=== PATIENT | male | born 1965 | race Caucasian/White ===

== ENCOUNTER 2024-03-11 00:04 | Emergency (ER) | payer SELFPAY ==
[2024-03-11 00:10] VITALS: BP 180/90; PULSE 132; TEMP 36.6; O2SAT 92; BMI 23.1
--- NOTE | 2024-03-11 00:47 | XR_ITS ---
The [address] [address] Patient Name: BERENICE BLANDON MRN: [id number] date: 1965 Sex: M Assigned Patient Location: ER Current Patient Location: ER Accession/Order Number: [id number] Exam Date: 03/11/2024 01:39 Report Date: 03/11/2024 04:17 At the request of: LORE MARKER Procedure: XR acute abdomen series EXAMINATION: XR acute abdomen series HISTORY: N/V/D COMPARISON: XR chest 03/15/2020 FINDINGS: LUNGS: Thin curvilinear stranding opacity within upper left lung extending to a triangular-shaped opacity adjacent the upper lateral left pleural. MEDIASTINUM: No abnormal widening. BOWEL GAS PATTERN: Air-filled stomach and a few loops of bowel within left upper quadrant. No fluid levels or free air. FREE AIR: None. CALCIFICATIONS: None significant. BONES: Marked irregularity of the right eighth rib. OTHER: Negative. XR/XR acute abdomen series IMPRESSION: 1. No convincing acute cardiopulmonary process. 2. Lateral left upper lobe opacity is suspected to represent scarring, however, this has increased or is better seen compared to prior study. Consider nonemergent follow-up CT chest. 3. Stable marked irregularity of posterior right eighth rib; nonspecific but likely sequela of prior trauma and heterotopic bone formation. 4. Air-filled stomach and a few loops of bowel within left upper quadrant; no convincing obstruction or ileus. Electronically authenticated by: LÓPEZ ALEJANDRE Date: 03/11/2024 04:17
[2024-03-11 00:52] LABS: Basophils Percent Auto 0.2 % (0.2-2.0); Hematocrit 45.7 % (42.0-54.0); Hemoglobin 15.3 g/dL (14.0-18.0); Immature Granulocytes Abs Auto 0.06 10^3/uL (0.00-0.03); Immature Granulocytes Pct Auto 0.4 % (0.0-0.5); Lymphocytes Absolute Auto 2.1 10^3/uL (1.2-3.8); Lymphocytes Percent Auto 12.4 % (20.5-60.0); Mean Corpuscular HGB Conc 33.5 g/dL (29.9-35.2); Mean Corpuscular Hemoglobin 30.4 pg (25.9-34.0); Mean Corpuscular Volume 90.9 fL (80.0-94.0); Monocytes Absolute Auto 1.1 10^3/uL (0.3-0.8); Monocytes Percent Auto 6.7 % (1.7-12.0); Neutrophils Absolute Auto 13.3 10^3/uL (1.4-6.5); Neutrophils Percent Auto 80.3 % (43.0-75.0); Platelet Count 265 10^3/uL (150-450); Red Blood Count 5.03 10^6/uL (4.70-6.10); Red Cell Distribution Width 13.5 % (11.0-15.0); White Blood Count 16.5 10^3/uL (4.0-11.0)
[2024-03-11 01:07] LABS: Alanine Aminotransferase 120 U/L (16-63); Albumin Globulin Ratio 0.8; Albumin Level 3.7 g/dL (3.4-5.0); Alkaline Phosphatase 135 U/L (46-116); Anion Gap 15.1; Aspartate Amino Transferase 132 U/L (15-37); BUN Creatinine Ratio 18.6; Bilirubin Total 0.8 mg/dL (0.2-1.0); Calcium 10.1 mg/dL (8.5-10.1); Carbon Dioxide 30.5 mmol/L (21.0-32.0); Chloride 104 mmol/L (98-107); Estimated GFR (African America >60 (>=60 mL/min/1.73m^2); Estimated GFR (Non-African Ame >60 (>=60 mL/min/1.73m^2); Globulin 4.9 g/dL; Glucose 163 mg/dL (74-106); Potassium 3.6 mmol/L (3.5-5.1); Sodium 146 mmol/L (136-145); Total Protein 8.6 g/dL (6.4-8.2)
[2024-03-11] MEDS: FAMOTIDINE/PF 20 MG/2 ML VIAL IV (01:13)
[2024-03-11] MEDS: 0.9 % SODIUM CHLORIDE 1,000 ML 1000 ML IV ×2 (01:13→03:03)
[2024-03-11] MEDS: ONDANSETRON PF 4 MG/2 ML VIAL IV ×2 (01:13→03:40)
--- NOTE | 2024-03-11 01:38 | ED_ITS ---
HPI - Nausea/Vomiting/Diarrhea General Chief complaint: Nausea/Vomiting/Diarrhea Stated complaint: GENERAL WEAKNESS Time Seen by Provider: 03/11/24 00:40 Source: patient Mode of arrival: walk-in Limitations: no limitations History of Present Illness HPI Narrative: This 59-year-old male presents for evaluation of 1 day of nausea vomiting and diarrhea. He states his symptoms started earlier today. He has vomited at least 10 times and had the same number of episodes of diarrhea. He denies that he has been eating [employer] recently. He does not know what is causing his symptoms. He has not traveled outside of the country. He denies any fevers or chills. He denies any chest pain or shortness of breath. He denies a history of excessive alcohol use. He states he was trying to drink some water earlier t o stay hydrated but then he vomited. He denies any chest pain or pau abdominal pain. He has not had a fever. He denies any dizziness or syncope. Related Data Home Medications ?Medication ?Instructions ?Recorded ?Confirmed No Known Home Medications 03/11/24 03/11/24 Allergies Allergy/AdvReac Type Severity Reaction Status Date / Time No Known Drug Allergies Allergy Verified 03/11/24 00:15 Review of Systems ROS Status of ROS 10 or more systems reviewed and unremark able except as noted in history and below PFSH PFSH Social History Little interest or pleasure in doing things: not at all Feeling down, depressed, or hopeless: not at all Exam Narrative Exam Narrative: Vital signs and Nursing Notes reviewed: Patient is afebrile, he is tachycardic with a pulse of 132, blood pressure is elevated 180/90, he is mildly hypoxic with pulse ox of 92% on room air General: Awake, alert, oriented, no acute distress, lying comfortably on the stretcher, no respiratory distress, no active vomiting HEENT: Normocephalic atraumatic, mucous membranes are dry, no scleral icterus, vision is grossly intact Chest: Lungs are clear to auscultation with good air entry, there is no wheezing rhonchi or rales appreciated no accessory muscle use, patient is speaking in complete sentences-no chest wall tenderness to palpation CVS: Regular rate and rhythm S1-S2, tachycardic at 120 on exam with no murmurs rubs or gallops appreciated ABD: Soft, nondistended, nontender, no rebound guarding or rigidity, hyperactive bowel sounds, no pulsatile masses appreciated Extremities: Moving all extremities, no lower extremity tenderness or swelling noted, negative Homans' sign, pulses are brisk and equal bilaterally Skin: Normal in appearance without rash,pallor, petechiae or purpura Neuro: No focal deficits Constitutional Vital Signs, click to edit/add: Last Vital Signs Temp 97.8 F 03/11/24 00:10 Pulse 99 H 03/11/24 05:28 Resp 18 03/11/24 05:28 BP 175/99 H 03/11/24 05:28 Pulse Ox 96 03/11/24 05:28 O2 Del Method Room Air 03/11/24 05:28 Course Vital Signs Vital signs: Vital Signs Temperature 97.8 F 03/11/24 00:10 Pulse Rate 132 H 03/11/24 00:10 Respiratory Rate 18 03/11/24 00:10 Blood Pressure 180/90 H 03/11/24 00:10 Pulse Oximetry 92 L 03/11/24 00:10 Oxygen Delivery Method Room Air 03/11/24 00:10 Temperature 97.8 F 03/11/24 00:10 Pulse Rate 99 H 03/11/24 05:28 Respiratory Rate 18 03/11/24 05:28 Blood Pressure 175/99 H 03/11/24 05:28 Pulse Oximetry 96 03/11/24 05:28 Oxygen Delivery Method Room Air 03/11/24 05:28 MDM - Nausea/Vomiting/Diarrhea MDM Narrative Medical decision making narrative: This 59-year-old male presents for evaluation of 1 day of nausea vomiting and diarrhea. He states he cannot keep anything down. He was noted to be hypertensive and tachycardic upon arrival. He denied any chest pain or shortness of breath. He has not really recently eaten any fast food. He has no sick contacts. He denied any abdominal pain and his abdominal and was benign.. An IV was placed and he was medicated with IV fluids, Zofran, Pepcid. On reevaluation he is tolerating ice chips but states his stomach is still gurgling and was given additional IV fluids and Zofran. Routine labs are reviewed. He has an elevated white count at 16.5 which is likely acute phase reactant due to the vomiting. BUN is mildly elevated at 21, creatinine is normal. He has some mild elevation in his liver function test. I do not have any prior labs for comparison purposes. Total bilirubin is normal. X-ray of the chest and abdomen does not show any acute abdominal findings. He will be referred to his family physician for the abnormal findings on his x-ray for outpatient CT scanning. He will be discharged home with prescription for Zofran and Pepcid. He has not had any additional episodes of vomiting or diarrhea while in the emergency department. His elevated blood pressure upon arrival has come down and stabilized into the 140s over 70s. Medical Records Medical records narrative: [place] [address] XRay Report Signed Patient: BERENICE BLANDON MR#: [id number] : 1965 Acct:[id number] Age/Sex: 59 / M ADM Date: 03/11/24 Loc: ER Attending Dr: Ordering Physician: Evonne Novak Date of Service: 03/11/24 Procedure(s): XR acute abdomen series Accession Number(s): [id number] cc: Evonne Novak; Physician,Non-Staff M.D.~ The [place] [address] Patient Name: BERENICE BLANDON MRN: [id number] date: 1965 Sex: M Assigned Patient Location: ER Current Patient Location: ER Accession/Order Number: [id number] Exam Date: 03/11/2024 01:39 Report Date: 03/11/2024 04:17 At the request of: EVONNE NOVAK Procedure: XR acute abdomen series EXAMINATION: XR acute abdomen series HISTORY: N/V/D COMPARISON: XR chest 03/15/2020 FINDINGS: LUNGS: Thin curvilinear stranding opacity within upper left lung extending to a triangular-shaped opacity adjacent the upper lateral left pleural. MEDIASTINUM: No abnormal widening. BOWEL GAS PATTERN: Air-filled stomach and a few loops of bowel within left upper quadrant. No fluid levels or free air. FREE AIR: None. CALCIFICATIONS: None significant. BONES: Marked irregularity of the right eighth rib. OTHER: Negative. XR/XR acute abdomen series IMPRESSION: 1. No convincing acute cardiopulmonary process. 2. Lateral left upper lobe opacity is suspected to represent scarring, however, this has increased or is better seen compared to prior study. Consider nonemergent follow-up CT chest. 3. Stable marked irregularity of posterior right eighth rib; nonspecific but likely sequela of prior trauma and heterotopic bone formation. 4. Air-filled stomach and a few loops of bowel within left upper quadrant; no convincing obstruction or ileus. Electronically authenticated by: LÓPEZ ALEJANDRE Date: 03/11/2024 04:17 Lab Data Labs: Lab Results 03/11/24 Range/Units 00:28 WBC 16.5 H (4.0-11.0) 10^3/uL RBC 5.03 (4.70-6.10) 10^6/uL Hgb 15.3 (14.0-18.0) g/dL Hct 45.7 (42.0-54.0) % MCV 90.9 (80.0-94.0) fL MCH 30.4 (25.9-34.0) pg MCHC 33.5 (29.9-35.2) g/dL RDW 13.5 (11.0-15.0) % Plt Count 265 (150-450) 10^3/uL MPV 12.0 (9.5-13.5) fL Neut % (Auto) 80.3 H (43.0-75.0) % Lymph % (Auto) 12.4 L (20.5-60.0) % Kimball % (Auto) 6.7 (1.7-12.0) % Eos % (Auto) 0.0 L (0.9-7.0) % Baso % (Auto) 0.2 (0.2-2.0) % Neut # (Auto) 13.3 H (1.4-6.5) 10^3/uL Lymph # (Auto) 2.1 (1.2-3.8) 10^3/uL Kimball # (Auto) 1.1 H (0.3-0.8) 10^3/uL Eos # (Auto) 0.0 (0.0-0.7) 10^3/uL Baso # (Auto) 0.0 (0.0-0.1) 10^3/uL Abs Immat Gran (auto) 0.06 H (0.00-0.03) 10^3/uL Imm/Tot Granulo (auto) 0.4 (0.0-0.5) % Sodium 146 H (136-145) mmol/L Potassium 3.6 (3.5-5.1) mmol/L Chloride 104 (98-107) mmol/L Carbon Dioxide 30.5 (21.0-32.0) mmol/L Anion Gap 15.1 BUN 21.0 H (7.0-18.0) mg/dL Creatinine 1.13 (0.70-1.30) mg/dL Est GFR ( Amer) >60 (>=60 mL/min/1.73m^2) Est GFR (Non-Af Amer) >60 (>=60 mL/min/1.73m^2) BUN/Creatinine Ratio 18.6 Glucose 163 H (74-106) mg/dL Calcium 10.1 (8.5-10.1) mg/dL Total Bilirubin 0.8 (0.2-1.0) mg/dL AST 132 H (15-37) U/L ALT 120 H (16-63) U/L Alkaline Phosphatase 135 H (46-116) U/L Total Protein 8.6 H (6.4-8.2) g/dL Albumin 3.7 (3.4-5.0) g/dL Globulin 4.9 g/dL Albumin/Globulin Ratio 0.8 Discharge Plan Discharge Chief Complaint: Nausea/Vomiting/Diarrhea Clinical Impression: Gastroenteritis, Elevated liver function tests Patient Disposition: Home, Self-Care Time of Disposition Decision: 05:00 Condition: Good Prescriptions / Home Meds: No Action No Known Home Medications Print Language: Citizen [place] Instructions: Acute Nausea and Vomiting (ED), ABG (Arterial Blood Gas) Test (ED) Referrals: Physician,Non-Staff, [Primary Care Provider] - 1 week Discharge Date/Time: 03/11/24 05:45
[2024-03-11 02:30] VITALS: BP 140/78; PULSE 118; O2SAT 95
[2024-03-11 05:28] VITALS: BP 175/99; PULSE 99; O2SAT 96
== END 2024-03-11 05:45 | disposition home or self-care (01) ==
PROVIDERS: Emergency Provider Emergency Medicine
DX: K52.9 Noninfective gastroenteritis and colitis, unspecified (principal); R79.89 Other specified abnormal findings of blood chemistry
CPT/HCPCS: 36415; 74022; 80053; 85025; 96361; 96374; 96375; 96376; 99285; J2405

== ENCOUNTER 2024-07-19 19:36 | Observation (INO) | payer OTHER, SELFPAY ==
[2024-07-19] VITALS (32 sets, daily range): BP systolic 124–152; BP diastolic 79–102; PULSE 101–171; TEMP 36.7; O2SAT 83–98; BMI 20.3
--- NOTE | 2024-07-19 19:42 | ECG_ITS ---
The [facility] Test Date: 2024-07-19 Pat Name: BERENICE BLANDON Department: Room: - Gender: Male [employer] Executive: : 1965 Requested By: 1031 Order Number: [id number] Reading MD: JULEE EDMOND M.D. Measurements Intervals [place] Rate: 126 P: 105 CT: 132 QRS: 84 QRSD: 90 T: 64 QT: 334 QTc: 408 Interpretive Statements [address] segment abnormalities 9150 abnormal ECG Compared to ECG 03/15/2020 19:14:45 ST (T wave) deviation now present Incomplete right bundle-branch block no longer present Electronically Signed On 07-20-2024 19:56:36 EDT by JULEE EDMOND M.D.
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
--- OUTSIDE RECORDS SUMMARY | 2024-07-19 19:47 | XMS_ITS | CCD ---
Author Organization [facility] Care Team Providers Care Bender Hand Name Role Phone MADISONTIMAADRIANA Unavailable Unavailable CHRISTIE, BRENDAN Unavailable Unavailable CHRISTIE, BRENDAN Unavailable Unavailable CHRISTIE, BRENDAN Unavailable Unavailable STACIE LERMA Unavailable Unavailable DABOUL, ISAM Unavailable Unavailable MARKER, LORE Attending Unavailable MARKER, LORE Consulting Unavailable MARKER, LORE Admitting Unavailable MISC, DOCTOR Primary Care Unavailable Policaro, Suly Consulting Unavailable OPAL Almazan Primary Care Provider OPAL Almazan Referring Provider MD Julio Martinez Attending Provider TIFFANIE MILES Attending Unavaila ble Julio Martinez Attending Unavailabl e Julio Martinez Admitting UnavailBritney Castro Referring Unavailable Britney Almazan Primary Care Unavailable Allergies Allergy Classification Reported Allergen(s) Allergy Type Date of Onset Reaction(s) Facility (1 source) ALLERGIES NOT ON FILE; Translations: [ALLERGIES NOT ON FILE] Propensity to adverse reactions (disorder) [facility] Repository (1 source) Codeine Drug Allergy [facility] Repository Medications Current Medications Medication Drug Class(es) Dates Sig (Normalized) Sig (Original) pregabalin 300 mg oral capsule (6 sources) Start: 08-21-2023 End: 11-05-2023 take 300 mg by mouth twice daily Pregabalin Active 300 MG PO Twice daily 60 November 05, 2023 2:05pm Completed/Discontinued Medications Medication Drug Class(es) Dates Sig (Normalized) Sig (Original) amoxicillin 875 mg / clavulanate 125 mg oral tablet (1 source) Penicillin-class Antibacterial Start: 11-17-2023 End: 12-01-2023 take 1 tablet by mouth twice daily Amoxicillin-Pot Clavulanate Discontinued 1 TAB PO Twice daily 20 November 17, 2023 12:00am December 01, 2023 1:19pm Problems Problem Classification Problem Date Documented Da te Episodic/Chronic Anxiety disorders (1 source) Anxiety; Translations: [Anxiety disorder, unspecified] 12-01-2023 Chronic Cancer of esophagus (3 sources) Malignant neoplasm of lower third of esophagus; Translations: [Malignant neoplasm of lower third of esophagus] Onset: 05-07-2022 Chronic Cancer of esophagus (13 sources) Personal history of malignant neoplasm of esophagus; Translations: [History of malignant neoplasm of esophagus] Onset: 03-17-2020 08-21-2023 Episodic Congestive heart failure; nonhypertensive (1 source) Heart failure, unspecified; Translations: [HEART FAILURE UNSPECIFIED] Onset: 03-17-2020 Chronic Disorders of teeth and jaw (2 sources) Dental abscess; Translations: [Periapical abscess without sinus] 11-17-2023 Episodic Hypertension with complications and secondary hypertension (1 source) Hypertensive heart disease with heart failure; Translations: [HTN HEART DISEASE W/HEART FAIL] Onset: 03-17-2020 Chronic Lymphadenitis (9 sources) Disorder of intra-abdominal lymph nodes; Translations: [Localized enlarged lymph nodes] 08-21-2023 Episodic Other aftercare (1 source) 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; Translations: [OTH DIAGNOSTIC TECH CURRENT DRUG THERAPY] Onset: 03-17-2020 Episodic Other lower respiratory disease (1 source) Personal history of pneumonia (recurrent); Translations: [PERSONAL HX OF PNEUMONIA RECURRENT] Onset: 03-17-2020 Episodic Other lower respiratory disease (4 sources) Nodule of lung; Translations: [Solitary pulmonary nodule] 08-21-2023 Episodic Other lower respiratory disease (7 sources) Solitary pulmonary nodule; Translations: [Solitary pulmonary nodule] 08-21-2023 Episodic Other nervous system disorders (2 sources) Neuropathy; Translations: [Polyneuropathy, unspecified] 11-05-2023 Chronic Other nervous system disorders (3 sources) Polyneuropathy, unspecified; Translations: [Mononeuritis of unspecified site] 11-17-2023 Chronic Other nervous system disorders (1 source) Chronic pain; Translations: [Other chronic pain] 12-01-2023 Chronic Other nervous system disorders (1 source) Other chronic pain; Translations: [Other chronic pain] 12-01-2023 Chronic Other screening for suspected conditions (not mental disorders or infectious disease) (4 sources) Patient encounter status; Translations: [Encounter for screening for lipoid disorders] 11-17-2023 Episodic Poisoning by other medications and drugs (1 source) Poisoning by other opioids, accidental (unintentional), initial encounter; Translations: [POISON OTH OPIOIDS ACC INITIAL ENC] Onset: 03-17-2020 Spondylosis; intervertebral disc disorders; other back problems (1 source) Low back pain; Translations: [Low back pain] 12-01-2023 Episodic Unclassified (4 sources) Altered mental status, unspecified; Translations: [Altered mental status, unspecified] Onset: 01-11-2017 Episodic Results Test Name Value Interpretation Reference Range Facility Alanine aminotransferase [En zymatic activity/volume] in Serum or PlasmaOrdered By: Julio Martinez on 10-20-2023 ALT [Catalytic activity/Vol] 42 U/L 7-52 [facility] Comment on above: Order Comment: STAT APRIL CT Performed By: #### C MP #### [facility] [address] [place] [address] [place] Albumin [Mass/volume] in Ser um or Plasma by Bromocresol green (BCG) dye binding methoOrdered By: Julio Martinez on 10-20-2023 Albumin BCG dye [Mass/Vol] 3.5 g/dL 3.5-5.7 [facility] Alkaline phosphatase [Enzyma tic activity/volume] in Serum or PlasmaOrdered By: Julio Martinez on 10-20-2023 ALP [Catalytic activity/Vol] 101 U/L 34-104 [facility] Comment on above: Order Comment: STAT APRIL CT Performed By: #### C MP #### [facility] [address] [place] [address] [place] Aspartate aminotransferase [ Enzymatic activity/volume] in Serum or PlasmaOrdered By: Julio Martinez on 10-20-2023 AST [Catalytic activity/Vol] 46 U/L High 13-39 [facility] Comment on above: Order Comment: STAT APRIL CT Performed By: #### C MP #### [address] Automated basophil %Ordered By: Rayd Al-Iraisraheladio on 10-20-2023 Basophils/100 WBC (Bld) 0.6 % . [facility] Comment on above: Performed By: #### C EA, SCAN CBC #### [address] Automated basophil countOrde red By: Mhd Al-Marraheladio on 10-20-2023 Basophils (Bld) [#/Vol] 0.1 10*3/uL 0.0-0.2 [facility] Comment on above: Performed By: #### C EA, SCAN CBC #### [address] Automated blood monocyte cou ntOrdered By: Rayd Al-Marraheladio on 10-20-2023 Monocytes (Bld) [#/Vol] 0.7 10*3/uL 0.0-0.8 [facility] Comment on above: Performed By: #### C EA, SCAN CBC #### [address] Automated eosinophil %Ordere d By: Rayd Al-Edith on 10-20-2023 Eosinophils/100 WBC (Bld) 1.4 % . [facility] Comment on above: Performed By: #### C EA, SCAN CBC #### [address] Automated eosinophil countOr dered By: d Al-Marraheladio on 10-20-2023 Eosinophils (Bld) [#/Vol] 0.1 10*3/uL 0.0-0.45 [facility] Comment on above: Performed By: #### C EA, SCAN CBC #### [address] Automated monocyte %Ordered By: Mhd Al-Marraheladio on 10-20-2023 Monocytes/100 WBC (Bld) 6.7 % . F [facility] Comment on above: Performed By: #### C EA, SCAN CBC #### [address] Automated neutrophil %Ordere d By: Julio Martinez on 10-20-2023 Neutrophils/100 WBC (Bld) 71.8 % . [facility] Comment on above: Performed By: #### C EA, SCAN CBC #### [address] Bilirubin.total [Mass/volume ] in Serum or PlasmaOrdered By: Julio Martinez on 10-20-2023 Bilirubin [Mass/Vol] 0.9 mg/dL 0.3-1.0 [facility] Comment on above: Order Comment: STAT APRIL CT Performed By: #### C MP #### [address] abdomen pelvis w conon CT abdomen pelvis w con [facility] [address] [place] [place] [address] CT Scan Report Signed Patient: Berenice Leary MR#: [id number] 42 : 1965 Acct:[id number] Age/Sex: 58 / M ADM Date: 10/20/23 Loc: Room: Type: [facility] Attending Dr: Julio Martinez MD Copies to: Julio Martinez MD Ordering Provider: Julio Martinez MD Date of Service: 10/20/23 CT/CT chest w con: C15.9 - Malignant neoplasm of esophagus, unspecified ([id number]) CT/CT abdomen pelvis w con: C15.9 - [...] lymphadenopathy. The patient is status post gastric pull-through. Lungs:Scattered areas of lung scarring. No consolidation [...] grossly unremarkable. Prostate gland normal in size.] Peritoneum/Retroperito neum:No free air, free fluid or lymphadenopathy.[ Abd [...] constipation. Impression dictated by: Nash Lockwood Jr., DHarrietOHarriet10/20/2023 2:47 PM Dictation Location: [place] [address] Transcribed By: [facility] 10/20/23 1447 Dictated By: Nash Lockwood Jr, DO 10/20/23 1441 Signed By: 10/20/23 1447 Normal [facility] Calcium [Mass/volume] in Ser um or PlasmaOrdered By: Julio Martinez on 10-20-2023 Calcium [Mass/Vol] 9.1 mg/dL 8.6-10.3 [facility] Comment on above: Order Comment: STAT APRIL CT Performed By: #### C MP #### [facility] [address] Carbon dioxide, total [Moles /volume] in Serum or PlasmaOrdered By: Julio Sharma on 10-20-2023 CO2 [Moles/Vol] 29.1 mmol/L 21.0-31.0 [facility] Comment on above: Order Comment: STAT APRIL CT Performed By: #### C MP #### [facility] [address] [place] [address] Chloride [Moles/volume] in S eliza or PlasmaOrdered By: Julio Martinez on 10-20-2023 Chloride [Moles/Vol] 101 mmol/L 98-107 [facility] Comment on above: Order Comment: STAT APRIL CT Performed By: #### C MP #### [address] Comprehensive Metabolic Pane дмитрий 10-20-2023 Albumin [Mass/Vol] 3.5 g/dL Normal 3.5-5.7 [facility] Comment on above: Order Comment: STAT APRIL CT Performed By: #### C MP #### [place] [address] [place] Creatinine Clr Calc Pharmacy 98.34 Normal [facility] Comment on above: Order Comment: STAT APRIL CT Result Comment: PERF ORMED BY: [place] [address] PATHOLOGIST [employer] QA LAB TECHNICIAN NIKITA URIBE M.D. Performed By: #### C MP #### [address] GFR/1.73 sq M.predicted MDRD (S/P/Bld) [Vol rate/Area] mL/min/{1.73_m2} Normal [facility] Comment on above: Order Comment: STAT APRIL CT Performed By: #### C MP #### [place] [address] [place] Creatinine [Mass/volume] in Serum or PlasmaOrdered By: Julio Martinez on 10-20-2023 Creatinine [Mass/Vol] 0.82 mg/dL 0.70-1.30 [facility] Comment on above: Order Comment: STAT APRIL CT Performed By: #### C MP #### [address] Erythrocyte distribution wid th [Ratio] by Automated countOrdered By: Julio Sharma on 10-20-2023 Erythrocyte distribution width (RBC) [Ratio] 15.2 % High 12.0-14.8 [facility] Comment on above: Performed By: #### C EA, SCAN CBC #### [facility] [address] Erythrocytes [#/volume] in B lood by Automated countOrdered By: Julio Martinez on 10-20-2023 RBC (Bld) [#/Vol] 4.52 10*6/uL 3.90-5.60 [facility] Comment on above: Performed By: #### C EA, SCAN CBC #### [place] [address] [place] Glucose [Mass/volume] in Ser um or PlasmaOrdered By: Julio Martinez on 10-20-2023 Glucose [Mass/Vol] 124 mg/dL High 70-100 [facility] Comment on above: ADA recommended refe rence rangeRandom Glucose Reference Range is dependent on time and content of last meal. Glucose of more than 200 mg/dL in a nonstressed, ambulatory subject supports the diagnosis of Diabetes Mellitus. Order Comment: STAT APRIL CT Result Comment: [place] om Glucose Reference Range is dependent on time and content of last meal. Glucose of more than 200 mg/dL in a nonstressed, ambulatory subject supports the diagnosis of Diabetes Mellitus. ADA recommended reference range Performed By: #### C MP #### [address] Hematocrit [Volume Fraction] of Blood by Automated countOrdered By: Julio Sharma on 10-20-2023 Hematocrit (Bld) [Volume fraction] 39.9 % 38.8-50.0 [facility] Comment on above: Performed By: #### C EA, SCAN CBC #### [place] [id number] [place] Hemoglobin [Mass/volume] in BloodOrdered By: franki Brantley-Edith on 10-20-2023 Hemoglobin (Bld) [Mass/Vol] 13.3 g/dL 13.0-17.0 [facility] Comment on above: Performed By: #### C EA, SCAN CBC #### [address] Leukocytes [#/volume] correc emmett for nucleated erythrocytes in Blood by Automated counOrdered By: franki Brantley-Edith on 10-20-2023 WBC corrected for nucl RBC Auto (Bld) [#/Vol] 9.7 10*3/uL 4.1-10.5 [facility] Leukocytes [#/volume] in Blo od by Automated countOrdered By: franki Brantley-Edith on 10-20-2023 WBC (Bld) [#/Vol] 9.7 10*3/uL 4.1-10.5 [facility] Comment on above: Performed By: #### C EA, SCAN CBC #### [address] Lymphocytes [#/volume] in Bl ood by Automated countOrdered By: franki Martinez on 10-20-2023 Lymphocytes (Bld) [#/Vol] 1.9 10*3/uL 1.00-4.8 [facility] Comment on above: Performed By: #### C EA, SCAN CBC #### [place] [address] [place] Lymphocytes/100 leukocytes i n Blood by Automated countOrdered By: franki Brantley-Edith on 10-20-2023 Lymphocytes/100 WBC (Bld) 19.5 % . [facility] Comment on above: Performed By: #### C EA, SCAN CBC #### [address] MCH [Entitic mass] by Automa emmett countOrdered By: franki Brantley-Edith on 10-20-2023 MCH (RBC) [Entitic mass] 29.4 pg 27.5-35.2 [facility] Comment on above: Performed By: #### C EA, SCAN CBC #### [facility] [address] MCHC Auto (RBC) [Mass/Vol]Or dered By: Julio Martinez on 10-20-2023 MCHC (RBC) [Mass/Vol] 33.3 g/dL 32.5-35.6 [facility] MCV [Entitic volume] by Auto mated countOrdered By: Julio Martinez on 10-20-2023 MCV (RBC) [Entitic vol] 88.3 fL 83.5-101 F [facility] Comment on above: Performed By: #### C EA, SCAN CBC #### [facility] [address] [place] [address] Neutrophils [#/volume] in Bl ood by Automated countOrdered By: Julio Martinez on 10-20-2023 Neutrophils (Bld) [#/Vol] 7.0 10*3/uL 1.8-7.7 [facility] Comment on above: Performed By: #### C EA, SCAN CBC #### [facility] [address] [place] [address] No Panel InformationOrdered By: Julio Martinez on 10-20-2023 Estimated GFR (CKD-EPI) > 60.0 mL/Min [facility] Creatinine Clearance (Chem 98.34 [facility] Nucleated erythrocytes [Pres ence] in Blood by Automated countOrdered By: Julio Martinez on 10-20-2023 Nucleated RBC Auto Ql (Bld) 0.1 /100{WBC} 0-0.5 [facility] Platelet adequacy [Presence] in Blood by Light microscopyOrdered By: Julio Sharma on 10-20-2023 Platelets LM Ql (Bld) Decreased Normal [facility] Platelet mean volume [Entiti c volume] in Blood by Automated countOrdered By: Julio Martinez on 10-20-2023 Platelet mean volume (Bld) [Entitic vol] 10.1 fL 6.6-10.1 [facility] Comment on above: Performed By: #### C EA, SCAN CBC #### [facility] [address] Platelet morphology finding [Identifier] in BloodOrdered By: Julio Martinez on 10-20-2023 Platelet morphology finding Nom (Bld) N/A [facility] Platelets Large [Presence] i n Blood by Light microscopyOrdered By: Julio Sharma on 10-20-2023 Platelets Large LM Ql (Bld) Slight [facility] Platelets [#/volume] in Bloo d by Automated countOrdered By: franki Martinez on 10-20-2023 Platelets (Bld) [#/Vol] 117 10*3/uL Low 150-450 [facility] Comment on above: Performed By: #### C EA, SCAN CBC #### [address] Potassium [Moles/volume] in Serum or PlasmaOrdered By: Julio Martinez on 10-20-2023 Potassium [Moles/Vol] 3.8 mmol/L 3.5-5.1 [facility] Comment on above: Order Comment: STAT APRIL CT Performed By: #### C MP #### [facility] [address] [place] [address] Protein [Mass/volume] in Ser um or PlasmaOrdered By: franki Martinez on 10-20-2023 Protein [Mass/Vol] 7.2 g/dL 6.4-8.9 [facility] Comment on above: Order Comment: STAT APRIL CT Performed By: #### C MP #### [facility] [address] RBC morphologyOrdered By: Ray Martinez on 10-20-2023 RBC morphology finding Nom (d) Normal Normal [facility] Comment on above: Performed By: #### C EA, SCAN CBC #### [facility] [address] [place] [address] [place] Scan and CBCon 10-20-2023 Large Platelets Slight Normal [facility] Comment on above: Result Comment: PERF ORMED BY: [place] [address] PATHOLOGIST [employer] QA LAB TECHNICIAN NIKITA URIBE M.D. Performed By: #### C EA, SCAN CBC #### [address] Mean Corpuscular HGB Conc 33.3 g/dL Normal 32.5-35.6 [facility] Comment on above: Performed By: #### C EA, SCAN CBC #### [address] NRBC% 0.1 /100{WBC} Normal 0-0.5 [facility] Comment on above: Performed By: #### C EA, SCAN CBC #### [address] Platelet Estimate Decreased Normal Normal [facility] Comment on above: Performed By: #### C EA, SCAN CBC #### [address] Serum globulin measurement b y calculation (mass/volume)Ordered By: Julio Sharma on 10-20-2023 Globulin (S) [Mass/Vol] 3.7 g/dL [facility] Comment on above: Order Comment: STAT APRIL CT Performed By: #### C MP #### [address] Serum or plasma albumin/glob ulin mass ratioOrdered By: Julio Martinez on 10-20-2023 Albumin/Globulin [Mass ratio] 0.9 {ratio} [facility] Comment on above: Order Comment: STAT APRIL CT Performed By: #### C MP #### [address] Serum or plasma anion gap de terminationOrdered By: Julio Martinez on 10-20-2023 Anion gap [Moles/Vol] 8.7 mmol/L 6.0-15.0 [facility] Comment on above: Order Comment: STAT APRIL CT Performed By: #### C MP #### [address] [place] [address] [facility] Serum or plasma carcinoembry onic antigen measurement (mass/volume)Ordered By: Julio Martinez on 10-20-2023 Carcinoembryonic Ag [Mass/Vol] 2.2 ng/mL 0.0-3.0 [facility] Comment on above: Serial tumor marker results determined by assays using different manufacturers or methods may not be comparable.[facility] religious studies professor and method:ALEXI UNICEL DXI, 2 SITE IMMUNOENZYMATIC SANDWICH ASSAY. Sodium [Moles/volume] in Ser um or PlasmaOrdered By: Julio Martinez on 10-20-2023 Sodium [Moles/Vol] 135 mmol/L Low 136-145 [facility] Comment on above: Order Comment: STAT APRIL CT Performed By: #### C MP #### [facility] [address] [place], [place] [id number] [facility] Urea nitrogen [Mass/volume] in Serum or PlasmaOrdered By: Julio Martinez on 10-20-2023 Urea nitrogen [Mass/Vol] 13 mg/dL 7-25 [facility] Comment on above: Order Comment: STAT APRIL CT Performed By: #### C MP #### [facility] [address] [place] [address] CT ABDOMEN AND PELVIS W IV C ONTRASTon 11-13-2021 CT ABDOMEN AND PELVIS W IV CONTRAST [facility] Department of Radiology [address] [place] [address] ======== Patient Name: BERENICE BLANDON : 1965 Sex: M Age: Race: White Pt. Location: Patient Status: D Ordered Date: 01/25/2021 10:05:00 AM Completed Date: 11/13/2021 11:53 AM Requesting Provider: TIFFANIE MILES Attending Provider: TIFFANIE MILES Report Copy To: LEATHA HUSAIN Signs & Symptoms: C15.5 Malignant neoplasm of lower third of esophagus I10 History: [place] Comments: October 2021 Exam: CT ABDOMEN AND PELVIS W IV CONTRAST ======== CT ABDOMEN AND PELVIS W IV CONTRAST 11/13/2021 11:53 AM CLINICAL INDICATION: C15.5 Malignant neoplasm of lower third of esophagus I10 staging restaging study TECHNOLOGIST COMMENTS: Malignant neoplasm of lower third of esophagus follow up QUESTION FOR THE RADIOLOGIST: 05/26/2020 CONTRAST: Omnipaque TECHNIQUE: Multiple detector CT axial slices of the abdomen and pelvis were obtained with IV contrast. Multiplanar reformats were performed and viewed on a separate workstation and reviewed to further define anatomy and possible pathology. All CT scans at this facility use dose modulation, iterative reconstruction, and/or weight based dosing when appropriate to reduce radiation dose to as low as reasonably achievable COMPARISON: None. FINDINGS: Prior gastric pull-through procedure given the history of esophageal cancer. No change in appearance of the liver, spleen, or adrenal glands. Pancreas is unchanged. No hydronephrosis. Renal volume loss superiorly on the left is again noted. Prevertebral lymph node is appreciated new from prior study this is at the level of the right renal amie and can be seen on axial image 38. This measures 1.6 x 0.8 cm. Other smaller retroperitoneal and mesenteric lymph nodes are appreciated. These also appear to be new. Concern is raised for developing metastatic disease. Please refer to the separate CT chest report. Urinary bladder is unremarkable. Prostate gland signal vesicles appear unremarkable. No bowel obstruction. No free air. No ascites. IMPRESSION: New preaortic lymph node is appreciated since prior study. This is borderline in size but does represent interval change. Other numerous but normal sized mesenteric lymph nodes are now appreciated. Close clinical follow-up and imaging follow-up is suggested. Electronically signed: Loli Real. Transcribed by: [email or web address], User Resident: Electronically Signed by: LOLI FARHAN @ 11/14/2021 01:37 PM Normal [facility] Comment on above: Order Comment: October 2021 CT CHEST W CONTRASTon 2021 CT CHEST W CONTRAST [facility] Department of Radiology [address] [place] [id number] ======== Patient Name: BERENICE BLANDON : 1965 Sex: M Age: Race: White Pt. Location: 29 Patient Status: D Ordered Date: 01/25/2021 10:05:00 AM Completed Date: 11/13/2021 11:53 AM Requesting Provider: TIFFANIE MILES Attending Provider: TIFFANIE MILES Report Copy To: LEATHA HUSAIN Signs & Symptoms: C15.5 Malignant neoplasm of lower third of esophagus I10 History: [place] Comments: October 2021 Exam: CT CHEST W CONTRAST ======== CT CHEST W CONTRAST 11/13/2021 11:53 AM CLINICAL INDICATION: C15.5 Malignant neoplasm of lower third of esophagus I10 TECHNOLOGIST COMMENTS: Malignant neoplasm of lower third of esophagus follow up QUESTION FOR THE RADIOLOGIST: October 2021 CONTRAST: Omnipaque TECHNIQUE: Multiple detector CT axial slices of the abdomen and pelvis were obtained with IV contrast. Multiplanar reformats were performed and viewed on a separate workstation and reviewed to further define anatomy and possible pathology. All CT scans at this facility use dose modulation, iterative reconstruction, and/or weight based dosing when appropriate to reduce radiation dose to as low as reasonably achievable COMPARISON: 10/26/2020 FINDINGS: Findings compatible with gastric pull up procedure are again appreciated. No concerning new mediastinal adenopathy. No pleural pericardial effusion is appreciated. Thoracic aorta is unchanged. New groundglass area of infiltration is appreciated peripherally in the inferior right upper lobe and also posteriorly in the right middle lobe. Very small ground glass nodules noted in the left upper lobe. Nodular abnormalities some of which appear to. The tree in bud are appreciated in the left lower lobe. Rounded nodules appreciated, noncalcified on sequence 5 image 55 also in the left lower lobe. Area of subpleural thickening with linear components in the left upper lobe peripherally is again noted. This appears to be stable. IMPRESSION: Abnormal study. Interval change. Multiple subcentimeter nodules are appreciated in the left lower lobe. There are additional areas of new groundglass infiltrates. Concern is raised for occult metastatic disease. The small sized nodules are below the sensitivity PET/CT. Recommendation is for short-term follow-up CT chest. Electronically signed: Loli Real. Transcribed by: [id number], User Resident: Electronically Signed by: LOLI REAL @ 11/14/2021 01:31 PM Normal [facility] Comment on above: Order Comment: October 2021 ACETAMINOPHENon 03-15-2020 Acetaminophen [Mass/Vol] <10.0 Critically low 10.1-30.0 [facility] Comment on above: Performed By: #### E TH, SALYC, ACET #### [facility] [address], [place] [address] Sabrina Lin CARDIAC ROGER ADMITon 020 CK [Catalytic activity/Vol] 142 U/L Normal 55-170 [facility] Comment on above: Performed By: #### B MP, LIVER, CMADM #### [facility] [address], [place] [address] Sabrina Lin CK.MB [Mass/Vol] 1.39 ng/mL Normal <=2.37 [facility] Comment on above: Performed By: #### B MP, LIVER, CMADM #### [facility] [address], [place] [address] Sabrina Lin INR Coag (Bld) [Relative time] SEE BELOW Normal [facility] Comment on above: Result Comment: <0.0 34 ng/ml NEGATIVE 0.034-0.119 INDETERMINATE 0.120 AMI CUT OFF Performed By: #### B MP, LIVER, CMADM #### [facility] [address] [place] [address] Sabrina Delia MOISÉS 186.0 ng/mL Critically high <=121.0 The [facility] Comment on above: Performed By: #### B MP, LIVER, CMADM #### [facility] [address] [place] [address] Sabrina Delia TROP 0.018 ng/mL Normal <=0.034 [facility] Comment on above: Performed By: #### B MP, LIVER, CMADM #### [facility] [address] [place] [address] Sabrina Delia CBC W MANUAL DIFFon 03-15-20 20 ATYPICAL LYMPH # Normal [facility] Comment on above: Performed By: #### C TISH #### [facility] [address] [place] [address] Sabrina Delia ATYPICAL LYMPH % Normal [facility] Comment on above: Performed By: #### C TISH #### [facility] [address] [place] [address] Sabrina Delia BAND # 0.0 103/ul Normal 0.0-0.3 [facility] Comment on above: Performed By: #### C TISH #### [facility] [address] [place] [address] Sabrina Delia BAND % 0 % Normal 0-5 [facility] Comment on above: Performed By: #### C TISH #### [facility] [address] [place] [address] Sabrina Delia BASOM # 0.00 103/ul Normal 0.00-0.10 [facility] Comment on above: Performed By: #### C TISH #### [facility] [address] [place] [address] Sabrina Delia BASOM % 0.0 % Critically low 0.2-2.0 [facility] Comment on above: Performed By: #### C TISH #### [facility] [address] [place] [address] Sabrina Delia BLAST # Normal [facility] Comment on above: Performed By: #### C TISH #### [facility] [address] [place] [address] Sabrina Delia BLAST % Normal [facility] Comment on above: Performed By: #### Winnie WINSTON #### [facility] [address] [place] [address] Sabrina Delia CORRECTED WBC Normal 4.0-11.0 [facility] Comment on above: Performed By: #### C TISH #### [facility] [address] [place] [address] Sabrina Delia Eosinophils (Bld) [#/Vol] 0.00 103/ul Normal 0.00-0.70 [facility] Comment on above: Performed By: #### Winnie WINSTON #### [facility] [address] [place] [address] Sabrina Delia Eosinophils/100 WBC (Bld) 0.0 % Critically low 0.9-7.0 [facility] Comment on above: Performed By: #### Winnie WINSTON #### [facility] [address] [place] [address] Sabrina Delia Erythrocyte distribution width (RBC) [Ratio] 14.2 % Normal 11.0-15.0 [facility] Comment on above: Performed By: #### Winnie WINSTON #### [facility] [address] [place] [address] Sabrina Delia Hematocrit (Bld) [Volume fraction] 45.8 % Normal 42.0-54.0 [facility] Comment on above: Performed By: #### Winnie WINSTON #### [facility] [address] [place] [address] Sabrina Delia Hemoglobin (Bld) [Mass/Vol] 14.9 g/dl Normal 14.0-18.0 [facility] Comment on above: Performed By: #### Winnie WINSTON #### [facility] [address] [place] [address] Sabrina Delia LYMPHM # 0.59 103/ul Critically low 1.20-3.80 [facility] Comment on above: Performed By: #### C TISH #### [facility] [address] [place] [address] Sabrina Delia LYMPHM% 3.0 % Critically low 20.5-60.0 [facility] Comment on above: Performed By: #### C TISH #### [facility] [address] [place] [address] Sabrinajenn Mulleren MCH (RBC) [Entitic mass] 29.0 pg Normal 25.9-34.0 [facility] Comment on above: Performed By: #### Winnie WINSTON #### [facility] [address] [place] [address] Sabrinajenn Lin MCHC (RBC) [Mass/Vol] 32.5 g/dl Normal 29.9-35.2 [facility] Comment on above: Performed By: #### Winnie WINSTON #### [facility] [address] [place] [address] Sabrina Lin MCV (RBC) [Entitic vol] 89.1 fL Normal 80.0-94.0 [facility] Comment on above: Performed By: #### Winnie WINSTON #### [facility] [address] [place] [address] Sabrina Delia METAMYELOCYTE # Normal [facility] Comment on above: Performed By: #### Winnie WINSTON #### [facility] [address] [place] [address] Sabrina Delia METAMYELOCYTE % Normal [facility] Comment on above: Performed By: #### Winnie WINSTON #### [facility] [address] [place], [place] [address] Sabrina Delia MONOM# 1.19 103/ul Critically high 0.30-0.80 [facility] Comment on above: Performed By: #### Winnie WINSTON #### [facility] [address] [place] [address] Sabrina Delia MONOM% 6.0 % Normal 1.7-12.0 [facility] Comment on above: Performed By: #### Winnie WINSTON #### [facility] [address] [place], [place] [address] Sabrinajenn Mulleren MYELOCYTE # Normal [facility] Comment on above: Performed By: #### Winnie WINSTON #### [facility] [address] [place], [place] [address] Sabrinajenn Mulleren MYELOCYTE % Normal [facility] Comment on above: Performed By: #### Winnie WINSTON #### [facility] [address] [place], [place] [address] Sabrina Delia NRBC Normal [facility] Comment on above: Performed By: #### Winnie WINSTON #### [facility] [address] [place], [place] [address] Sabrinajenn Lin Platelet mean volume (Bld) [Entitic vol] 12.3 fL Normal 9.5-13.5 [facility] Comment on above: Performed By: #### Winnie WINSTON #### [facility] [address] [place] [address] Sabrina Delia Platelets (Bld) [#/Vol] 241 103/ul Normal 150-450 [facility] Comment on above: Performed By: #### Winnie WINSTON #### [facility] [address] [place] [address] Sabrinajenn Lin RBC (Bld) [#/Vol] 5.14 106/ul Normal 4.70-6.10 [facility] Comment on above: Performed By: #### Winnie WINSTON #### [facility] [address] [place], [place] [address] Sabrina Delia SEG # 18.02 103/ul Critically high 1.40-6.50 [facility] [place] [facility] Comment on above: Performed By: #### Winnie WINSTON #### [facility] [address] [place], [place] [address] Sabrina Delia Segmented neutrophils/100 WBC (Bld) 91.0 % Critically high 43.0-75.0 [facility] Comment on above: Performed By: #### Winnie WINSTON #### [facility] [address] [place], [place] [address] Sabrina Delia WBC (Bld) [#/Vol] 19.8 103/ul Critically high 4.0-11.0 [facility] Comment on above: Performed By: #### C BCMAN #### [facility] [address] [place], [place] [address] Sabrina Delia ETHANOL (BLD ALC)on 03-15-20 20 Ethanol [Mass/Vol] NOTE: 80 mg/dl is th e legal limit for a blood alcohol level Normal [facility] Comment on above: Performed By: #### E TH, VERONICA, ACET #### [facility] [address] [place], [place] [address] Sabrina Delia Ethanol [Mass/Vol] mg/dL Normal [facility] Comment on above: Performed By: #### E TH, VERONICA, ACET #### [facility] [address] [place] [address] Sabrina Delia LACTATE/LACTIC ACIDon 2019 Lactate [Moles/Vol] 2.0 mmol/L Normal 0.7-2.0 [facility] Comment on above: Performed By: #### L ACT #### [facility] [address] [place], [place] [address] Sabrina Delia LIVER PROFILEon 03-15-2020 Albumin [Mass/Vol] 4.0 g/dL Normal 3.5-5.0 [facility] Comment on above: Performed By: #### B MP, LIVER, CMADM #### [facility] [address] [place], [place] [address] Sabrina Delia Albumin/Globulin [Mass ratio] 1.0 {ratio} Normal [facility] Comment on above: Performed By: #### B MP, LIVER, CMADM #### [facility] [address] [place], [place] [address] Sabrina Delia ALP [Catalytic activity/Vol] 89 U/L Normal 38-126 [facility] Comment on above: Performed By: #### B MP, LIVER, CMADM #### [facility] [address] [place], [place] [address] Sabrina Delia ALT [Catalytic activity/Vol] 18 U/L Critically low 21-72 [facility] Comment on above: Performed By: #### B MP, LIVER, CMADM #### [facility] [address] [place] [address] Sabrina Delia AST [Catalytic activity/Vol] 18 U/L Normal 17-59 [facility] Comment on above: Performed By: #### B MP, LIVER, CMADM #### [facility] [address] [place], [place] [address] Sabrina Delia BILI, CONJUGATED 0.1 mg/dL Normal 0.0-0.3 [facility] Comment on above: Performed By: #### B MP, LIVER, CMADM #### [facility] [address] [place] [address] Sabrina Delia Bilirubin Ql (U) 0.3 mg/dL Normal 0.2-1.3 [facility] Comment on above: Performed By: #### B MP, LIVER, CMADM #### [facility] [address] [place] [address] Sabrina Delia Globulin (S) [Mass/Vol] 4.0 g/dL Normal [facility] Comment on above: Performed By: #### B MP, LIVER, CMADM #### [facility] [address] [place] [address] Sabrina Delia Protein [Mass/Vol] 8.0 g/dL Normal 6.1-8.2 [facility] Comment on above: Performed By: #### B MP, LIVER, CMADM #### [facility] [address] [place], [place] [address] Sabrina Delia PROF CHEM 8 (BAS METB)on Anion gap [Moles/Vol] 13.6 mmol/L Normal [facility] Comment on above: Performed By: #### B MP, LIVER, CMADM #### [facility] [address] [place] [address] Sabrina Delia Calcium [Mass/Vol] 9.0 mg/dL Normal 8.4-10.2 [facility] Comment on above: Performed By: #### B MP, LIVER, CMADM #### [facility] [address] [place], [place] [address] Sabrina Delia Chloride [Moles/Vol] 101 mmol/L Normal 98-107 [facility] Comment on above: Performed By: #### B MP, LIVER, CMADM #### [facility] [address] [place], [place] [address] Sabrina Delia CO2 [Moles/Vol] 28.0 mmol/L Normal 22.0-30.0 [facility] Comment on above: Performed By: #### B MP, LIVER, CMADM #### [facility] [address] [place] [id number] Sabrina Delia Creatinine [Mass/Vol] 1.67 mg/dL Critically high 0.66-1.25 [facility] Comment on above: Performed By: #### B MP, LIVER, CMADM #### [facility] [address] [place] [address] Sabrina Delia EGFR-AF MALAWIAN 52 mL/min/1.73m2 Critically low >=60 [facility] Comment on above: Performed By: #### B MP, LIVER, CMADM #### [facility] [address] [id number] Sabrina Delia EGFR-NON AF MALAWIAN 43 mL/min/1.73m2 Critically low >=60 [facility] Comment on above: Performed By: #### B MP, LIVER, CMADM #### [facility] [address] [id number] Sabrina Delia Glucose [Mass/Vol] 212 mg/dL Critically high 74-106 [facility] Comment on above: Performed By: #### B MP, LIVER, CMADM #### [facility] [address] [id number] Sabrina Delia Potassium [Moles/Vol] 3.6 mmol/L Normal 3.4-5.0 [facility] Comment on above: Performed By: #### B MP, LIVER, CMADM #### [facility] [address] [place] [phone] Sabrina Delia Sodium [Moles/Vol] 139 mmol/L Normal 137-145 [facility] Comment on above: Performed By: #### B MP, LIVER, CMADM #### [facility] [address] [place], [place] [address] Sabrinajenn Lin Urea nitrogen [Mass/Vol] 30.0 mg/dL Critically high 9.0-20.0 [facility] Comment on above: Performed By: #### B MP, LIVER, CMADM #### [facility] [address] [id number] Sabrniajenn Lin Urea nitrogen/Creatinine [Mass ratio] 18.0 mg/mg Normal [facility] Comment on above: Performed By: #### B MP, LIVER, CMADM #### [facility] [address] [id number] Sabrina Lin SALICYLATEon 03-15-2020 SALICYLATE 7.3 mg/dL Normal <=20.0 [facility] Comment on above: Performed By: #### E TH, SALYC, ACET #### [facility] [address] [id number] Sabrina Delia XR CHEST 1 Von 03-15-2020 XR CHEST 1 V CHEST X-RAY, 1 VIEW HISTORY: Shortness of breath. COMPARISON: None. FINDINGS: The heart, amie, and mediastinum are unremarkable. The lungs are grossly clear. There are no pleural effusions. There is no pneumothorax. There are old right-sided rib fractures. There is left apical pleural thickening. There is pleural thickening seen at the lung bases bilaterally. IMPRESSION: No evidence of acute cardiopulmonary disease. Electronically authenticated by: SULY LOPEZ Date: 2020-03-15 21:09 Normal [facility] Cult,Bloodon 01-17-2017 Cult,Blood Specimen Description .BLOOD Special Requests RIGHT HAND 2ML Culture NO GROWTH 6 DAYS Report Status FINAL 01/17/2017 Normal [facility] Comment on above: Performed By: #### B C ####[facility] [id number] [place] [address] Cult,Blood Specimen Description .BLOOD Special Requests L FOREARM 20 ML Culture NO GROWTH 6 DAYS Report Status FINAL 01/17/2017 Normal [facility] Comment on above: Performed By: #### B C ####[address] [address] CBCon 01-13-2017 Erythrocyte distribution width Auto Ratio (RBC) 15.5 % High 12.5-15.4 [facility] Comment on above: Performed By: #### C BC, ALCB, CP, SALI, ACET, LESLEY, TRIC, TSHX, FT4 ####[address] [address] Erythrocytes (RBC) 3.89 10*6/uL Low 4.5-5.9 [facility] Comment on above: Performed By: #### C BC, ALCB, CP, SALI, ACET, LSELEY, TRIC, TSHX, FT4 ####[address] [address] Hematocrit (HCT) 33.1 % Low 41-53 [facility] Comment on above: Performed By: #### C BC, ALCB, CP, SALI, ACET, LESLEY, TRIC, TSHX, FT4 ####[address] [address] Hemoglobin mass conc (Bld) 11.2 g/dL Low 13.5-17.5 [facility] Comment on above: Performed By: #### C BC, ALCB, CP, SALI, ACET, LESLEY, TRIC, TSHX, FT4 ####[address] [address] MCH 28.7 pg Normal 26-34 [facility] Comment on above: Performed By: #### C BC, ALCB, CP, SALI, ACET, LESLEY, TRIC, TSHX, FT4 ####[address] [address] MCHC mass conc (RBC) 33.7 g/dL Normal 31-37 [facility] Comment on above: Performed By: #### C BC, ALCB, CP, SALI, ACET, LESLEY, TRIC, TSHX, FT4 ####[address] [address] MCV 85.1 fL Normal 80-100 [facility] Comment on above: Performed By: #### C BC, ALCB, CP, SALI, ACET, LESLEY, TRIC, TSHX, FT4 ####[address] [address] Platelet mean volume (PMV) 10.9 fL Normal 6.0-12.0 [facility] Comment on above: Result Comment: [address] [address] Performed By: #### C BC, ALCB, CP, SALI, ACET, LESLEY, TRIC, TSHX, FT4 ####[address] [address] Platelets 142 10*3/uL Normal 140-450 [facility] Comment on above: Performed By: #### C BC, ALCB, CP, SALI, ACET, LESLEY, TRIC, TSHX, FT4 ####[address] [address] WBC (Leukocytes) 14.9 10*3/uL High 3.5-11.0 [facility] Comment on above: Performed By: #### C BC, ALCB, CP, SALI, ACET, LESLEY, TRIC, TSHX, FT4 ####[address] [address] Discharge Summaryon 01-14-20 17 HIM IP Note OR Doctor Of Nurse Anesthesia Practice Normal [facility] Basic Metabolic Profon 01-12 (cont.) Normal [facility] Comment on above: Result Comment: Aver age GFR for 50-59 years old: 93 mL/min/1.73sq mChronic Kidney Disease: <60 mL/min/1.73sq mKidney failure: <15 mL/min/1.73sq meGFR calculated using average adult body mass. Additional eGFR calculator available at:http://[email or web address]_[email or web address] [address] Performed By: #### C BC, ALCB, CP, SALI, ACET, LESLEY, TRIC, TSHX, FT4 ####[address] [address] Anion gap 15 mmol/L Normal 9-17 [facility] Comment on above: Performed By: #### C BC, ALCB, CP, SALI, ACET, LESLEY, TRIC, TSHX, FT4 ####[address] [address] Calcium 8.6 mg/dL Normal 8.6-10.4 [facility] Comment on above: Performed By: #### C BC, ALCB, CP, SALI, ACET, LESLEY, TRIC, TSHX, FT4 ####[address] [address] Chloride 103 mmol/L Normal 98-107 [facility] Comment on above: Performed By: #### C BC, ALCB, CP, SALI, ACET, LESLEY, TRIC, TSHX, FT4 ####[address] [address] CO2 23 mmol/L Normal 20-31 [facility] Comment on above: Performed By: #### C BC, ALCB, CP, SALI, ACET, LESLEY, TRIC, TSHX, FT4 ####[address] [address] Creatinine 0.55 mg/dL Low 0.70-1.20 [facility] Comment on above: Performed By: #### C BC, ALCB, CP, SALI, ACET, LESLEY, TRIC, TSHX, FT4 ####[address] [place] [address] eGFR (non-black) mL/min/{1.73_m2} Normal >60 [facility] Comment on above: Performed By: #### C BC, ALCB, CP, SALI, ACET, LESLEY, TRIC, TSHX, FT4 ####[address] [address] Glucose mass conc 106 mg/dL High 70-99 [facility] Comment on above: Performed By: #### C BC, ALCB, CP, SALI, ACET, LESLEY, TRIC, TSHX, FT4 ####[address] [address] Potassium molar conc 4.0 mmol/L Normal 3.7-5.3 [facility] Comment on above: Performed By: #### C BC, ALCB, CP, SALI, ACET, LESLEY, TRIC, TSHX, FT4 ####[address] [address] Sodium 141 mmol/L Normal 135-144 [facility] Comment on above: Performed By: #### C BC, ALCB, CP, SALI, ACET, LESLEY, TRIC, TSHX, FT4 ####[address] [address] Urea nitrogen 7 mg/dL Normal 6-20 [facility] Comment on above: Performed By: #### C BC, ALCB, CP, SALI, ACET, LESLEY, TRIC, TSHX, FT4 ####[address] [address] BUN/CRE Ratio NOT REPORTED Normal -20 [facility] Comment on above: Performed By: #### C BC, ALCB, CP, SALI, ACET, LESLEY, TRIC, TSHX, FT4 ####[address] [address] Staging: NOT REPORTED Normal [facility] Comment on above: Performed By: #### C BC, ALCB, CP, SALI, ACET, LESLEY, TRIC, TSHX, FT4 ####[address] [address] CBCon 01-12-2017 Erythrocyte distribution width Auto Ratio (RBC) 16.4 % High 12.5-15.4 [facility] Comment on above: Performed By: #### C BC, ALCB, CP, SALI, ACET, LESLEY, TRIC, TSHX, FT4 ####[address] [address] Erythrocytes (RBC) 4.32 10*6/uL Low 4.5-5.9 [facility] Comment on above: Performed By: #### C BC, ALCB, CP, SALI, ACET, LESLEY, TRIC, TSHX, FT4 ####[address] [address] Hematocrit (HCT) 37.2 % Low 41-53 [facility] Comment on above: Performed By: #### C BC, ALCB, CP, SALI, ACET, LESLEY, TRIC, TSHX, FT4 ####[address] [address] Hemoglobin mass conc (Bld) 12.3 g/dL Low 13.5-17.5 [facility] Comment on above: Performed By: #### C BC, ALCB, CP, SALI, ACET, LESLEY, TRIC, TSHX, FT4 ####[address] [address] MCH 28.4 pg Normal 26-34 [facility] Comment on above: Performed By: #### C BC, ALCB, CP, SALI, ACET, LESLEY, TRIC, TSHX, FT4 ####[address] [address] [facility] mass conc (RBC) 33.0 g/dL Normal 31-37 [facility] Comment on above: Performed By: #### C BC, ALCB, CP, SALI, ACET, LESLEY, TRIC, TSHX, FT4 ####[address] [address] MCV 86.0 fL Normal 80-100 [facility] Comment on above: Performed By: #### C BC, ALCB, CP, SALI, ACET, LESLEY, TRIC, TSHX, FT4 ####[address] [address] Platelet mean volume (PMV) 9.7 fL Normal 6.0-12.0 [facility] Comment on above: Result Comment: [address] [place] [address] Performed By: #### C BC, ALCB, CP, SALI, ACET, LESLEY, TRIC, TSHX, FT4 ####[address] [address] Platelets 141 10*3/uL Normal 140-450 [facility] Comment on above: Performed By: #### C BC, ALCB, CP, SALI, ACET, LESLEY, TRIC, TSHX, FT4 ####[address] [address] WBC (Leukocytes) 13.6 10*3/uL High 3.5-11.0 [facility] Comment on above: Performed By: #### C BC, ALCB, CP, SALI, ACET, LESLEY, TRIC, TSHX, FT4 ####[address] [address] Flu A/B Ag Detectionon 01-12 Flu A/B Ag Detection Specimen Descriptio n .NASOPHARYNGEAL SWABSpecial Requests NOT REPORTEDDirect Exam PRESUMPTIVE NEGATIVE for Influenza A + B antigens. PCR testing to confirm this result is available upon request. Specimen will be saved in the laboratory for 7 days. Please call [phone] if PCR testing is indicated. Report Status FINAL 01/12/2017 Normal [facility] Comment on above: Performed By: #### C BC, ALCB, CP, SALI, ACET, LESLEY, TRIC, TSHX, FT4 ####[address] [address] Hemoglobin A1Con 01-12-2017 Glucose mass conc 120 mg/dL Normal [facility] Comment on above: Result Comment: The ADA and AACC recommend providing the estimated average glucose result to permit better patient understanding of their HBA1c result.[address] [address] Performed By: #### C BC, ALCB, CP, SALI, ACET, LESLEY, TRIC, TSHX, FT4 ####[address] [address] Hemoglobin A1c/Hemoglobin.total mass fraction (Bld) 5.8 % Normal 4.0-6.0 [facility] Comment on above: Performed By: #### C BC, ALCB, CP, SALI, ACET, LESLEY, TRIC, TSHX, FT4 ####[address] [address] Lactic Acid,Whole Blon 01-12 Lactic Acid,Whole Bl 0.8 mmol/L Normal 0.7-2.1 [facility] Comment on above: Result Comment: [facility] [address] [place] [address] Performed By: #### C BC, ALCB, CP, SALI, ACET, LESLEY, TRIC, TSHX, FT4 ####[address] [address] Lactic Acid,Whole Bl 1.1 mmol/L Normal 0.7-2.1 [facility] Comment on above: Result Comment: [facility] [address] [place] [address] Performed By: #### C BC, ALCB, CP, SALI, ACET, LESLEY, TRIC, TSHX, FT4 ####[address] [address] Lactic Acid,Whole Bl 1.1 mmol/L Normal 0.7-2.1 [facility] Comment on above: Result Comment: [address] [address] Performed By: #### C BC, ALCB, CP, SALI, ACET, LESLEY, TRIC, TSHX, FT4 ####[address] [address] Legionella Ag, Uron 01-13-20 17 Legionella Ag, Ur Specimen Description .CLEAN CATCH URINESpecial Requests NOT REPORTEDDirect Exam Urine negative for L. pneumophilia serogroup 1 antigen. Infection due to Legionella cannot be ruled out since (1) other L. pneumophilia serogroups and other Legionella species may cause disease, (2) antigen may not be present in early infection (<3 days). and (3) the level of antigen present in the urine may be below the detectable levels of this test. Report Status FINAL 01/12/2017 Normal [facility] Comment on above: Performed By: #### C BC, ALCB, CP, SALI, ACET, LESLEY, TRIC, TSHX, FT4 ####[address] [address] Strep pneum Ag,CSF/Uron Strep pneum Ag,CSF/Ur Specimen Descripti on .CLEAN CATCH URINE Special Requests NOT REPORTED Direct Exam NEGATIVE: Strep pneumoniae antigen not detected Report Status FINAL 01/12/2017 [facility] Comment on above: Performed By: #### C BC, ALCB, CP, SALI, ACET, LESLEY, TRIC, TSHX, FT4 ####[address] [address] Thyroxine, Freeon 01-12-2017 Thyroxine, Free 1.34 ng/dL Normal 0.93-1.70 [facility] Comment on above: Result Comment: [address] [place], [place] [id number] [phone] Performed By: #### C BC, ALCB, CP, SALI, ACET, LESLEY, TRIC, TSHX, FT4 ####[address] [address] US LIVERon 01-12-2017 US LIVER EXAMINATION:RIGHT UPPER QUADRANT [id number]/1/2017 7:30 amCOMPARISON:None.HIST ORY:ORDERING SYSTEM PROVIDED HISTORY: ABD PAIN, FEVER, NO RECENT SURGERYFINDINGS:LIVER: The liver measures 16 cm in length and demonstrates normalechogenicity without evidence of intrahepatic biliary ductal dilatation.Main portal vein is patent.BILIARY SYSTEM: Gallbladder is unremarkable without evidence ofpericholecystic fluid, wall thickening or stones. Negative sonographicMurphy's sign.Common bile duct is within normal limits measuring 6.2 mm.RIGHT KIDNEY: The right kidney is grossly unremarkable without evidence ofhydronephrosis.PANCR EAS: Not visualized due to bowel gasOTHER: No evidence of right upper quadrant ascites.IMPRESSION: Unremarkable right upper quadrant ultrasound.Interpreted by:KAREY Kaurigned by:Christina Bonner MD01/12/17Final result Normal [facility] Urinalysis w/ Microon 2016 ----- Normal [facility] Comment on above: Performed By: #### C BC, ALCB, CP, SALI, ACET, LESLEY, TRIC, TSHX, FT4 ####[facility] [id number] [place] [address] Acetaminophen mass conc MODERATE Abnormal NEG [facility] Comment on above: Performed By: #### C BC, ALCB, CP, SALI, ACET, LESLEY, TRIC, TSHX, FT4 ####[facility] [address] [place] [address] Bilirubin (direct) Negative Normal NEG [facility] Comment on above: Performed By: #### C BC, ALCB, CP, SALI, ACET, LESLEY, TRIC, TSHX, FT4 ####[address] [address] Hemoglobin mass conc (Bld) Negative Normal NEG [facility] Comment on above: Performed By: #### C BC, ALCB, CP, SALI, ACET, LESLEY, TRIC, TSHX, FT4 ####[address] [address] Nitrite,Ur Negative Normal NEG [facility] Comment on above: Performed By: #### C BC, ALCB, CP, SALI, ACET, LESLEY, TRIC, TSHX, FT4 ####[address] [address] Turbidity CLEAR Normal CLEAR [facility] Comment on above: Performed By: #### C BC, ALCB, CP, SALI, ACET, LESLEY, TRIC, TSHX, FT4 ####[address] [address] Urine WBC's None Normal 0-5 [facility] Comment on above: Performed By: #### C BC, ALCB, CP, SALI, ACET, LESLEY, TRIC, TSHX, FT4 ####[address] [address] Urine, casts in sediment 0 TO 2 HYALINE Normal 0-8 [facility] Comment on above: Result Comment: Refe rence range defined for non-centrifuged specimen. Performed By: #### C BC, ALCB, CP, SALI, ACET, LESLEY, TRIC, TSHX, FT4 ####[address] [address] Urine, color YELLOW Normal YEL [facility] Comment on above: Performed By: #### C BC, ALCB, CP, SALI, ACET, LESLEY, TRIC, TSHX, FT4 ####[address] [address] Urine, epithelial cells in sediment None Normal 0-5 [facility] Comment on above: Result Comment: [address] [place] [address] Performed By: #### C BC, ALCB, CP, SALI, ACET, LESLEY, TRIC, TSHX, FT4 ####[address] [address] Urine, erythrocytes None Normal 0-4 [facility] Comment on above: Result Comment: Refe rence range defined for non-centrifuged specimen. Performed By: #### C BC, ALCB, CP, SALI, ACET, LESLEY, TRIC, TSHX, FT4 ####[address] [address] Urine, glucose presence Negative Normal NEG [facility] Comment on above: Performed By: #### C BC, ALCB, CP, SALI, ACET, LESLEY, TRIC, TSHX, FT4 ####[address] [address] Urine, leukocyte esterase presence Negative Normal NEG [facility] Comment on above: Performed By: #### C BC, ALCB, CP, SALI, ACET, LESLEY, TRIC, TSHX, FT4 ####[address] [address] Urine, pH 5.0 [pH] Normal 5.0-8.0 [facility] Comment on above: Performed By: #### C BC, ALCB, CP, SALI, ACET, LESLEY, TRIC, TSHX, FT4 ####[address] [address] Urine, protein presence Negative Normal NEG [facility] Comment on above: Performed By: #### C BC, ALCB, CP, SALI, ACET, LESLEY, TRIC, TSHX, FT4 ####[address] [address] Urine, specific gravity 1.016 Normal 1.005-1.030 [facility] Comment on above: Performed By: #### C BC, ALCB, CP, SALI, ACET, LESLEY, TRIC, TSHX, FT4 ####[address] [address] Urobilinogen,Ur Normal Normal NORM [facility] Comment on above: Performed By: #### C BC, ALCB, CP, SALI, ACET, LESLEY, TRIC, TSHX, FT4 ####[address] [address] Epithelial, Renal NOT REPORTED Normal 0 [facility] Comment on above: Performed By: #### C BC, ALCB, CP, SALI, ACET, LESLEY, TRIC, TSHX, FT4 ####[address] [address] Mucus Strands NOT REPORTED Normal NONE [facility] Comment on above: Performed By: #### C BC, ALCB, CP, SALI, ACET, LESLEY, TRIC, TSHX, FT4 ####[address] [address] Other Observations NOT REPORTED Normal NREQ [facility] Comment on above: Performed By: #### C BC, ALCB, CP, SALI, ACET, LESLEY, TRIC, TSHX, FT4 ####[address] [address] Trichomonas NOT REPORTED Normal [facility] Comment on above: Performed By: #### C BC, ALCB, CP, SALI, ACET, LESLEY, TRIC, TSHX, FT4 ####[address] [address] Urine, amorphous sediment presence in sediment NOT REPORTED Normal NONE [facility] Comment on above: Performed By: #### C BC, ALCB, CP, SALI, ACET, LESLEY, TRIC, TSHX, FT4 ####[address] [address] Urine, bacteria in sediment NOT REPORTED Normal NONE [facility] Comment on above: Performed By: #### C BC, ALCB, CP, SALI, ACET, LESLEY, TRIC, TSHX, FT4 ####[address] [address] Urine, crystals in sediment NOT REPORTED Normal NONE [facility] Comment on above: Performed By: #### C BC, ALCB, CP, SALI, ACET, LESLEY, TRIC, TSHX, FT4 ####[address] [address] Urine, yeast presence in sediment NOT REPORTED Normal NONE [facility] Comment on above: Performed By: #### C BC, ALCB, CP, SALI, ACET, LESLEY, TRIC, TSHX, FT4 ####[address] [address] Venous Blood Gaseson 017 Bicarbonate (HCO3) 23.9 mmol/L Low 24-30 [facility] Comment on above: Performed By: #### C BC, ALCB, CP, SALI, ACET, LESLEY, TRIC, TSHX, FT4 ####[address] [address] Body Temp. 37.0 Normal [facility] Comment on above: Performed By: #### C BC, ALCB, CP, SALI, ACET, LESLEY, TRIC, TSHX, FT4 ####[address] [address] CO2 46.5 mmol/L Normal 39-55 [facility] Comment on above: Performed By: #### C BC, ALCB, CP, SALI, ACET, LESLEY, TRIC, TSHX, FT4 ####[address] [address] FIO2 UNKNOWN Normal [facility] Comment on above: Result Comment: [address] [address] Performed By: #### C BC, ALCB, CP, SALI, ACET, LESLEY, TRIC, TSHX, FT4 ####[address] [address] Hemoglobin mass conc (Bld) 1.3 % Normal 0-5.0 [facility] Comment on above: Result Comment: %Ref erence Range:Non-Smokers 0.0-0.8 %Smokers 4-20 % Performed By: #### C BC, ALCB, CP, SALI, ACET, LESLEY, TRIC, TSHX, FT4 ####[address] [address] Negative Base Excess 1.6 mmol/L Normal 0.0-2.0 [facility] Comment on above: Performed By: #### C BC, ALCB, CP, SALI, ACET, LESLEY, TRIC, TSHX, FT4 ####[address] [address] O2 saturation 86.7 % High 60.0-85.0 [facility] Comment on above: Performed By: #### C BC, ALCB, CP, SALI, ACET, LESLYE, TRIC, TSHX, FT4 ####[address] [address] Oxygen in arterial blood 52.4 mm[Hg] High 30-50 [facility] Comment on above: Performed By: #### C BC, ALCB, CP, SALI, ACET, LESLEY, TRIC, TSHX, FT4 ####[address] [address] pH of blood 7.332 [pH] Normal 7.320-7.420 [facility] Comment on above: Performed By: #### C BC, ALCB, CP, SALI, ACET, LESLEY, TRIC, TSHX, FT4 ####[address] [address] Scott Test NOT REPORTED Normal [facility] Comment on above: Performed By: #### C BC, ALCB, CP, SALI, ACET, LESLEY, TRIC, TSHX, FT4 ####[address] [address] CO2 NOT REPORTED Normal 39-55 [facility] Comment on above: Performed By: #### C BC, ALCB, CP, SALI, ACET, LESLEY, TRIC, TSHX, FT4 ####[address] [address] Hemoglobin mass conc (Bld) NOT REPORTED Normal 95.0-98.0 [facility] Comment on above: Performed By: #### C BC, ALCB, CP, SALI, ACET, LESLEY, TRIC, TSHX, FT4 ####[address] [address] Mode NOT REPORTED Normal [facility] Comment on above: Performed By: #### C BC, ALCB, CP, SALI, ACET, LESLEY, TRIC, TSHX, FT4 ####[address] [address] Notification Time NOT REPORTED Normal [facility] Comment on above: Performed By: #### C BC, ALCB, CP, SALI, ACET, LESLEY, TRIC, TSHX, FT4 ####[address] [address] Notification: NOT REPORTED Normal [facility] Comment on above: Performed By: #### C BC, ALCB, CP, SALI, ACET, LESLEY, TRIC, TSHX, FT4 ####[address] [address] O2 Device/Flow/% NOT REPORTED Normal [facility] Comment on above: Performed By: #### C BC, ALCB, CP, SALI, ACET, LESLEY, TRIC, TSHX, FT4 ####[address] [address] PEEP/CPAP NOT REPORTED Normal [facility] Comment on above: Performed By: #### C BC, ALCB, CP, SALI, ACET, LESLEY, TRIC, TSHX, FT4 ####[place] [address] pH Adjst'd for Temp. NOT REPORTED Normal 7.320-7.[address] [facility] Comment on above: Performed By: #### C BC, ALCB, CP, SALI, ACET, LESLEY, TRIC, TSHX, FT4 ####[address] [address] pO2 Adj'd for Temp. NOT REPORTED Normal 30-50 [facility] Comment on above: Performed By: #### C BC, ALCB, CP, SALI, ACET, LESLEY, TRIC, TSHX, FT4 ####[address] [address] Positive Base Excess NOT REPORTED Normal 0.0-2.0 [facility] Comment on above: Performed By: #### C BC, ALCB, CP, SALI, ACET, LESLEY, TRIC, TSHX, FT4 ####[address] [address] PSV NOT REPORTED Normal [facility] Comment on above: Performed By: #### C BC, ALCB, CP, SALI, ACET, LESLEY, TRIC, TSHX, FT4 ####[address] [address] Pt. Position NOT REPORTED Normal [facility] Comment on above: Performed By: #### C BC, ALCB, CP, SALI, ACET, LESLEY, TRIC, TSHX, FT4 ####[address] [address] Respiratory rate NOT REPORTED Normal [facility] Comment on above: Performed By: #### C BC, ALCB, CP, SALI, ACET, LESLEY, TRIC, TSHX, FT4 ####[address] [address] Set Rate NOT REPORTED Normal [facility] Comment on above: Performed By: #### C BC, ALCB, CP, SALI, ACET, LESLEY, TRIC, TSHX, FT4 ####[address] [address] Site Drawn NOT REPORTED Normal [facility] Comment on above: Performed By: #### C BC, ALCB, CP, SALI, ACET, LESLEY, TRIC, TSHX, FT4 ####[address] [address] Text for Respiratory NOT REPORTED Normal [facility] Comment on above: Performed By: #### C BC, ALCB, CP, SALI, ACET, LESLEY, TRIC, TSHX, FT4 ####[address] [address] Total Hb NOT REPORTED Normal 12.0-16.0 [facility] Comment on above: Performed By: #### C BC, ALCB, CP, SALI, ACET, LESLEY, TRIC, TSHX, FT4 ####[address] [address] Total Rate NOT REPORTED Normal [facility] Comment on above: Performed By: #### C BC, ALCB, CP, SALI, ACET, LESLEY, TRIC, TSHX, FT4 ####[address] [address] [place] NOT REPORTED Normal [facility] Comment on above: Performed By: #### C BC, ALCB, CP, SALI, ACET, LESLEY, TRIC, TSHX, FT4 ####[address] [address] Vitamin D 25 OHon 01-12-2017 Vitamin D 25 OH 6.5 ng/mL Low 30.0-100.0 [facility] Comment on above: Result Comment: Refe rence Range:Vitamin D status Range Deficiency <20 ng/mL Mild Deficiency 20-30 ng/mL Sufficiency 30-100 ng/mL Toxicity >100 ng/mL[address] [address] Performed By: #### C BC, ALCB, CP, SALI, ACET, LESLEY, TRIC, TSHX, FT4 ####[address] [address] Acetaminophenon 01-11-2017 Acetaminophen mass conc <10 Low 10-[address] [facility] Comment on above: Result Comment: [facility] [address] [place] [address] Performed By: #### C BC, ALCB, CP, SALI, ACET, LESLEY, TRIC, TSHX, FT4 ####[address] [address] Ammoniaon 01-11-2017 Ammonia 24 umol/L Normal 16-60 [facility] Comment on above: Result Comment: [facility] [address] [place] [address] Performed By: #### C BC, ALCB, CP, SALI, ACET, LESLEY, TRIC, TSHX, FT4 ####[address] [address] C-Reactive Proteinon 09-30-2 017 C reactive protein (CRP) 47.5 mg/L High 0.0-5.0 [facility] Comment on above: Result Comment: [address] [place] [address] Performed By: #### M YO, PRCAL, PHEP, CK, CRP, LIP, MG, VD25 ####[address] [address] CBCon 01-11-2017 Erythrocyte distribution width Auto Ratio (RBC) 16.0 % High 12.5-15.4 [facility] Comment on above: Performed By: #### C BC, ALCB, CP, SALI, ACET, LESLEY, TRIC, TSHX, FT4 ####[address] [address] Erythrocytes (RBC) 4.84 10*6/uL Normal 4.5-5.9 [facility] Comment on above: Performed By: #### C BC, ALCB, CP, SALI, ACET, LESLEY, TRIC, TSHX, FT4 ####[address] [address] Hematocrit (HCT) 40.9 % Low 41-53 [facility] Comment on above: Performed By: #### C BC, ALCB, CP, SALI, ACET, LESLEY, TRIC, TSHX, FT4 ####[address] [address] Hemoglobin mass conc (Bld) 13.6 g/dL Normal 13.5-17.5 [facility] Comment on above: Performed By: #### C BC, ALCB, CP, SALI, ACET, LESLEY, TRIC, TSHX, FT4 ####[address] [address] MCH 28.1 pg Normal 26-34 [facility] Comment on above: Performed By: #### C BC, ALCB, CP, SALI, ACET, LESLEY, TRIC, TSHX, FT4 ####[address] [address] MCHC mass conc (RBC) 33.3 g/dL Normal 31-37 [facility] Comment on above: Performed By: #### C BC, ALCB, CP, SALI, ACET, LESLEY, TRIC, TSHX, FT4 ####[address] [address] MCV 84.5 fL Normal 80-100 [facility] Comment on above: Performed By: #### C BC, ALCB, CP, SALI, ACET, LESLEY, TRIC, TSHX, FT4 ####[address] [address] Platelet mean volume (PMV) 10.5 fL Normal 6.0-12.0 [facility] Comment on above: Result Comment: [address] [place] [address] Performed By: #### C BC, ALCB, CP, SALI, ACET, LESLEY, TRIC, TSHX, FT4 ####[address] [address] Platelets 175 10*3/uL Normal 140-450 [facility] Comment on above: Performed By: #### C BC, ALCB, CP, SALI, ACET, LESLEY, TRIC, TSHX, FT4 ####[address] [address] WBC (Leukocytes) 10.3 10*3/uL Normal 3.5-11.0 [facility] Comment on above: Performed By: #### C BC, ALCB, CP, SALI, ACET, LESLEY, TRIC, TSHX, FT4 ####[address] [address] [address] CERVICAL SPINE WO CONTRAS Ton 01-11-2017 CT CERVICAL SPINE WO CONTRAST EXAMINATION:CT OF THE CERVICAL SPINE WITHOUT CONTRAST 01/11/2017 3:40 pmTECHNIQUE:CT of the cervical spine was performed without the administration ofintravenous contrast. Multiplanar reformatted images are provided for review.Dose modulation, iterative reconstruction, and/or weight based adjustment ofthe mA/kV was utilized to reduce the radiation dose to as low as reasonablyachievable.C OMPARISON:None.HISTORY :ORDERING SYSTEM PROVIDED HISTORY: Altered Mental Status, fallFINDINGS:BONES/ALI GNMENT: There is no evidence of an acute cervical spine fracture.There is normal alignment of the cervical spine.DEGENERATIVE CHANGES: Cervical spondylosis. Moderate degenerative disc spacenarrowing at level of a C4-C5 with formation of marginal osteophytes.SOFT TISSUES: There is no prevertebral soft tissue swelling.Lung window images demonstrates acute pulmonary parenchymal infiltrates inthe right upper lobe and right lung apex with pleural thickening. There is apleural thickening in the left lung apex. There is air and fluid in theesophagus. Esophagus is dilated.IMPRESSION: No acute abnormality of the cervical spine.Acute parenchymal infiltrates in the right upper lobe. Dilated esophaguscontaining fluid and debris.Interpreted by:KAREY Kaurigned by:Christina Bonner MD01/11/17Final result Normal [facility] CT CHEST WO CONTRASTon 01-11 CT CHEST WO CONTRAST EXAMINATION:CT OF T HE CHEST WITHOUT CONTRAST 01/11/2017 3:40 pmTECHNIQUE:CT of the chest was performed without the administration of intravenouscontrast. Multiplanar reformatted images are provided for review. Dosemodulation, iterative reconstruction, and/or weight based adjustment of themA/kV was utilized to reduce the radiation dose to as low as reasonablyachievable.C OMPARISON:None.HISTORY :ORDERING SYSTEM PROVIDED HISTORY: Altered Mental StatusFINDINGS:Mediast inum: Heart size is normal. There is no pericardial effusion. Withoutintravenous contrast, evaluation for adenopathy is of lower sensitivity.Within the limitations of a noncontrast exam, there is no evidence of hilaror mediastinal lymphadenopathy.Lungs/ pleura: There is patchy bilateral airspace disease.Upper Abdomen: There is a large hiatal hernia. Postsurgical changes arenoted which may represent a gastric pull-through procedure.Soft Tissues/Bones: NormalIMPRESSION: Bilateral airspace disease. Differential considerations include infectious,inflammator y, and neoplastic etiologies. Follow-up to resolution recommended.Large hiatal hernia and possible gastric pull-through procedure.Interpreted by:KAREY Beckettigned by:Dillon House MD01/11/17Final result Normal [facility] CT HEAD WO CONTRASTon 2016 CT HEAD WO CONTRAST EXAMINATION:CT OF E HEAD WITHOUT CONTRAST 01/11/2017 3:40 pmTECHNIQUE:CT of the head was performed without the administration of intravenouscontrast. Dose modulation, iterative reconstruction, and/or weight basedadjustment of the mA/kV was utilized to reduce the radiation dose to as lowas reasonably achievable.COMPARISON: January 11, 2017HISTORY:ORDERING SYSTEM PROVIDED HISTORY: AMSTECHNOLOGIST PROVIDED HISTORY:Has a code stroke or stroke alert been called?->YesFINDINGS:B RAIN/VENTRICLES: There is no acute intracranial hemorrhage, mass effect ormidline shift. No abnormal extra-axial fluid collection. The seaman-whitedifferentiat ion is maintained without evidence of an acute infarct. There isno evidence of hydrocephalus.ORBITS: The visualized portion of the orbits demonstrate no acute abnormality.SINUSES: The visualized paranasal sinuses and mastoid air cells demonstrateno acute abnormality.SOFT TISSUES/SKULL: No acute abnormality of the visualized skull or softtissues.IMPRESSION : No acute intracranial abnormality.Interprete d by:KAREY Beckettigned by:Dillon House MD01/11/17Final result Normal [facility] CT HEAD WO CONTRAST EXAMINATION:CT OF TH E HEAD WITHOUT CONTRAST 01/11/2017 12:34 pmTECHNIQUE:CT of the head was performed without the administration of intravenouscontrast. Dose modulation, iterative reconstruction, and/or weight basedadjustment of the mA/kV was utilized to reduce the radiation dose to as lowas reasonably achievable.COMPARISON: None.HISTORY:ORDERING SYSTEM PROVIDED HISTORY: STROKEFINDINGS:BRAIN/V ENTRICLES: Detail is limited due to large amount of motion relatedartifact. Ventricles are normal in size and position. Sulci are borderline-minimally prominent. No hyperdense [place] arteries are noted. Nodefinite focal areas of abnormal density are noted. There is no midlineshift, mass effect, hemorrhage or sulcal effacement. Left temporallow-density on image 26 is most likely artifactualORBITS: The visualized portion of the orbits demonstrate no acute abnormality.SINUSES: The visualized paranasal sinuses and mastoid air cells demonstrateno acute abnormality.SOFT TISSUES/SKULL: No acute abnormality of the visualized skull or softtissues.IMPRESSION : Limited exam due to artifact.No findings diagnostic of an acute infarct at this time.Dr. Quinteros notified at 12:47 p.m.Interpreted by:KAREY Knutsonigned by:Berenice Mosquera MD01/11/17Final result Normal [facility] Comp Metabolic Profon 2016 (cont.) Normal [facility] Comment on above: Result Comment: Aver age GFR for 50-59 years old: 93 mL/min/1.73sq mChronic Kidney Disease: <60 mL/min/1.73sq mKidney failure: <15 mL/min/1.73sq meGFR calculated using average adult body mass. Additional eGFR calculator available at:[email or web address] [address] [place] [address] Performed By: #### C BC, ALCB, CP, SALI, ACET, LESLEY, TRIC, TSHX, FT4 ####[facility] [place] [address] Alanine aminotransferase (ALT) 16 U/L Normal 5-41 [facility] Comment on above: Performed By: #### C BC, ALCB, CP, SALI, ACET, LESLEY, TRIC, TSHX, FT4 ####[facility] [place] [address] Albumin 3.9 g/dL Normal 3.5-5.2 [facility] Comment on above: Performed By: #### C BC, ALCB, CP, SALI, ACET, LESLEY, TRIC, TSHX, FT4 ####[address] [place] [address] Albumin/Globulin Ratio 1.2 {ratio} Normal 1.0-2.[address] [facility] Comment on above: Performed By: #### C BC, ALCB, CP, SALI, ACET, LESLEY, TRIC, TSHX, FT4 ####[address] [place] [address] Alkaline Phos 101 U/L Normal 40-129 [facility] Comment on above: Performed By: #### C BC, ALCB, CP, SALI, ACET, LESLEY, TRIC, TSHX, FT4 ####[address] [address] Anion gap 14 mmol/L Normal 9-17 [facility] Comment on above: Performed By: #### C BC, ALCB, CP, SALI, ACET, LESLEY, TRIC, TSHX, FT4 ####[address] [address] Aspartate aminotransferase (AST) 24 U/L Normal <40 [facility] Comment on above: Performed By: #### C BC, ALCB, CP, SALI, ACET, LESLEY, TRIC, TSHX, FT4 ####[address] [address] Bilirubin Ql (U) 0.35 mg/dL Normal 0.3-1.2 [facility] Comment on above: Performed By: #### C BC, ALCB, CP, SALI, ACET, LESLEY, TRIC, TSHX, FT4 ####[facility] [address] [place] [address] Calcium 9.0 mg/dL Normal 8.6-10.4 [facility] Comment on above: Performed By: #### C BC, ALCB, CP, SALI, ACET, LESLEY, TRIC, TSHX, FT4 ####[facility] [address] [place] [address] Chloride 101 mmol/L Normal 98-107 [facility] Comment on above: Performed By: #### C BC, ALCB, CP, SALI, ACET, LESLEY, TRIC, TSHX, FT4 ####[address] [place] [address] CO2 25 mmol/L Normal 20-31 [facility] Comment on above: Performed By: #### C BC, ALCB, CP, SALI, ACET, LESLEY, TRIC, TSHX, FT4 ####[id number] [place] [address] Creatinine 0.60 mg/dL Low 0.70-1.20 [facility] Comment on above: Performed By: #### C BC, ALCB, CP, SALI, ACET, LESLEY, TRIC, TSHX, FT4 ####[address] [address] eGFR (non-black) mL/min/{1.73_m2} Normal >60 [facility] Comment on above: Performed By: #### C BC, ALCB, CP, SALI, ACET, LESLEY, TRIC, TSHX, FT4 ####[address] [address] Glucose mass conc 139 mg/dL High 70-99 [facility] [facility] Comment on above: Performed By: #### C BC, ALCB, CP, SALI, ACET, LESLEY, TRIC, TSHX, FT4 ####[id number] [place] [address] Potassium molar conc 3.5 mmol/L Low 3.7-5.3 [facility] Comment on above: Performed By: #### C BC, ALCB, CP, SALI, ACET, LESLEY, TRIC, TSHX, FT4 ####[id number] [place] [address] Protein 7.1 g/dL Normal 6.4-8.3 [facility] Comment on above: Performed By: #### C BC, ALCB, CP, SALI, ACET, LESLEY, TRIC, TSHX, FT4 ####[address] [address] Sodium 140 mmol/L Normal 135-144 [facility] Comment on above: Performed By: #### C BC, ALCB, CP, SALI, ACET, LESLEY, TRIC, TSHX, FT4 ####[address] [address] Urea nitrogen 18 mg/dL Normal - [facility] Comment on above: Performed By: #### C BC, ALCB, CP, SALI, ACET, LESLEY, TRIC, TSHX, FT4 ####[address] [address] BUN/CRE Ratio NOT REPORTED Normal - [facility] Comment on above: Performed By: #### C BC, ALCB, CP, SALI, ACET, LESLEY, TRIC, TSHX, FT4 ####[address] [address] Staging: NOT REPORTED Normal [facility] Comment on above: Performed By: #### C BC, ALCB, CP, SALI, ACET, LESLEY, TRIC, TSHX, FT4 ####[address] [address] Creatine Kinaseon 01-11-2017 Creatine kinase (CK) 282 U/L Normal 39-308 [facility] Comment on above: Result Comment: [address] [address] Performed By: #### M YO, PRCAL, PHEP, CK, CRP, LIP, MG, VD25 ####[address] [address] Drug Scr, Abuse, Uron 2016 Amphetamine(s),Ur Positive Abnormal NEG [facility] Comment on above: Result Comment: (Pos itive cutoff 1000 ng/mL) Performed By: #### U AX, AICHA ####[address] [place] [address] Barbiturate(s),Ur Negative Normal NEG [facility] Comment on above: Result Comment: (Pos itive cutoff 200 ng/mL) Performed By: #### U AX, AICHA ####[facility] [id number] [place] [address] Base excess Negative Normal NEG [facility] Comment on above: Result Comment: (Pos itive cutoff 300 ng/mL) Performed By: #### U AX, AICHA ####[address] [address] Benzodiazepine(s) Positive Abnormal NEG [facility] Comment on above: Result Comment: (Pos itive cutoff 200 ng/mL) Performed By: #### U AX, AICHA ####[address] [place] [address] Cannabinoid(s),Ur Negative Normal NEG [facility] Comment on above: Result Comment: (Pos itive cutoff 50 ng/mL) Performed By: #### U AX, AICHA ####[address] [address] Interpretive Info Assay provides medic al screening only. The absence of expected drug(s) and/or Normal [facility] Comment on above: Result Comment: meta bolite(s) may indicate diluted or adulterated urine, limitations of testing or timing of collection.Testing for legal purposes should be confirmed by another method. To request confirmation of test result, please call the lab within 7 days of sample submission.[employer] [address] [place] [address] Performed By: #### U AX, AICHA ####[facility] [id number] [place] [address] Opiate(s), Ur Negative Normal NEG [facility] Comment on above: Result Comment: (Pos itive cutoff 300 ng/mL) Performed By: #### U AX, AICHA ####[address] [address] Oxycodone, Urine Positive Abnormal NEG [facility] Comment on above: Result Comment: (Pos itive cutoff 100 ng/mL) Performed By: #### U AX, AICHA ####[address] [address] Phencyclidine, Ur Negative Normal NEG [facility] Comment on above: Result Comment: (Pos itive cutoff 25 ng/mL) Performed By: #### U AX, AICHA ####[address] [address] Urine, methadone presence Negative Normal NEG [facility] Comment on above: Result Comment: (Pos itive cutoff 300 ng/mL) Performed By: #### U AX, AICHA ####[address] [address] Buprenorphrine, Ur NOT REPORTED Normal NEG [facility] Comment on above: Performed By: #### U AX, AICHA ####[address] [address] MDMA, Urine NOT REPORTED Normal NEG [facility] Comment on above: Performed By: #### U AX, AICHA ####[facility] [address] [place] [address] Methamphetamine, Ur NOT REPORTED Normal NEG [facility] Comment on above: Performed By: #### U AX, AICHA ####[facility] [address] [place] [address] Propoxyphene,Urine NOT REPORTED Normal NEG [facility] Comment on above: Performed By: #### U AX, AICHA ####[facility] mobile marketingF[address] [place], [place] [id number] Urine, tricyclic antidepressants NOT REPORTED Normal NEG [facility] Comment on above: Performed By: #### U AX, AICHA ####[facility] [address] [place], [place] [address] ED Noteon 01-11-2017 HIM IP Note OR Doctor Of Nurse Anesthesia Practice Normal [facility] HIM IP Note OR Doctor Of Nurse Anesthesia Practice Normal [facility] HIM IP Note OR Doctor Of Nurse Anesthesia Practice Normal [facility] HIM IP Note OR Doctor Of Nurse Anesthesia Practice Normal [facility] HIM IP Note OR Doctor Of Nurse Anesthesia Practice Normal [facility] HIM IP Note OR Doctor Of Nurse Anesthesia Practice Normal [facility] HIM IP Note OR Doctor Of Nurse Anesthesia Practice Normal [facility] HIM IP Note OR Doctor Of Nurse Anesthesia Practice Normal [facility] HIM IP Note OR Doctor Of Nurse Anesthesia Practice Normal [facility] HIM IP Note OR Doctor Of Nurse Anesthesia Practice Normal [facility] HIM IP Note OR Doctor Of Nurse Anesthesia Practice Normal [facility] HIM IP Note OR Doctor Of Nurse Anesthesia Practice Normal [facility] HIM IP Note OR Doctor Of Nurse Anesthesia Practice Normal [facility] HIM IP Note OR Doctor Of Nurse Anesthesia Practice Normal [facility] HIM IP Note OR Doctor Of Nurse Anesthesia Practice Normal [facility] HIM IP Note OR Doctor Of Nurse Anesthesia Practice Normal [facility] ED Provider Noteon 7 HIM IP Note OR Doctor Of Nurse Anesthesia Practice Normal [facility] Ethanol Alcoholon 01-11-2017 Ethanol mg/dL Normal <10 [facility] Comment on above: Performed By: #### C BC, ALCB, CP, SALI, ACET, LESLEY, TRIC, TSHX, FT4 ####[facility] [id number] [place], [place] [id number] Ethanol percent <0.010 Normal [facility] Comment on above: Result Comment: [facility] [place], [place] [id number] [phone] Performed By: #### C BC, ALCB, CP, SALI, ACET, LESLEY, TRIC, TSHX, FT4 ####[address] [address] Hepatitis Acute Jordy 01-11 Hep A Ab,IgM NONREACTIVE Normal NR [facility] Comment on above: Result Comment: [address] [address] Performed By: #### M YO, PRCAL, PHEP, CK, CRP, LIP, MG, VD25 ####[address] [address] Hep B Core Ab,IgM NONREACTIVE Normal NR [facility] Comment on above: Performed By: #### M YO, PRCAL, PHEP, CK, CRP, LIP, MG, VD25 ####[address] [address] Hep B Surf Ag NONREACTIVE Normal NR [facility] Comment on above: Performed By: #### M YO, PRCAL, PHEP, CK, CRP, LIP, MG, VD25 ####[address] [address] Hep C Ab NONREACTIVE Normal NR [facility] Comment on above: Result Comment: The hepatitis C procedure used in our laboratory is a Chemiluminescent test specific for three recombinant HCV antigens. A negative anti-HCV result indicates that the antibodies to hepatitis C virus are not present at this time.Individuals with reactive anti-HCV should be considered infected and infectious until proven otherwise. Confirmation of all equivocal or reactive results is recommended by ordering HCV RNA by PCR. Performed By: #### M YO, PRCAL, PHEP, CK, CRP, LIP, MG, VD25 ####[address] [address] History and Physicalon 01-11 HIM IP Note OR Doctor Of Nurse Anesthesia Practice Normal [facility] Lactic Acid,Whole Blon 01-11 Lactic Acid,Whole Bl 1.4 mmol/L Normal 0.7-2.1 [facility] Comment on above: Result Comment: [address] [address] Performed By: #### L ACWB ####[address] [address] Lipaseon 01-11-2017 Lipase 9 U/L Low 13-60 [facility] Comment on above: Result Comment: [address] [address] Performed By: #### C BC, ALCB, CP, SALI, ACET, LESLEY, TRIC, TSHX, FT4 ####[address] [address] Magnesiumon 01-11-2017 Magnesium 1.9 mg/dL Normal 1.6-2.6 [facility] Comment on above: Result Comment: [address] [address] Performed By: #### C BC, ALCB, CP, SALI, ACET, LESLEY, TRIC, TSHX, FT4 ####[address] [address] Myoglobinon 01-11-2017 Myoglobin 74 ng/mL High 28-72 [facility] Comment on above: Result Comment: [address] [address] Performed By: #### M YO, PRCAL, PHEP, CK, CRP, LIP, MG, VD25 ####[address] [address] Procalcitoninon 01-11-2017 Procalcitonin 2.36 ng/mL High <0.09 [facility] Comment on above: Result Comment: Proc alcitonin values from samples collected within the first 6 hours of systemic infection may still be low. Retesting may be indicated.Values from day 1 and day 4 can be entered into the Change in Procalcitonin Calculator ([email or web address]) to determine the patient's Mortality Risk Prognosis[address] [address] Performed By: #### M YO, PRCAL, PHEP, CK, CRP, LIP, MG, VD25 ####[address] [address] Salicylateon 01-11-2017 Salicylate 1 mg/dL Low 3-10 [facility] Comment on above: Result Comment: [address] [address] Performed By: #### C BC, ALCB, CP, SALI, ACET, LESLEY, TRIC, TSHX, FT4 ####[address] [address] TSH w/reflex to FT4on 2016 Thyroid stimulating hormone (TSH) 6.10 m[IU]/L High 0.30-5.00 [facility] Comment on above: Result Comment: [address] [address] Performed By: #### C BC, ALCB, CP, SALI, ACET, LESLEY, TRIC, TSHX, FT4 ####[address] [address] Toxic Tricyclic Sc,Blon 12-15 Toxic Tricyclic Sc,Bl Negative Normal NEG [facility] Comment on above: Result Comment: [facility] [address] [place] [address] Performed By: #### C BC, ALCB, CP, SALI, ACET, LESLEY, TRIC, TSHX, FT4 ####[address] [address] UA w/Reflex Cultureon 2016 Acetaminophen mass conc MODERATE Abnormal NEG [facility] Comment on above: Performed By: #### U AX, AICHA ####[id number] [place] [address] Bilirubin (direct) Negative Normal NEG [facility] Comment on above: Performed By: #### U AX, AICHA ####[address] [address] Comment Microscopic exam not performed based on chemical results unless requested in Normal [facility] Comment on above: Result Comment: orig inal order.[address] [address] Performed By: #### U AX, AICHA ####[address] [address] Hemoglobin mass conc (Bld) Negative Normal NEG [facility] Comment on above: Performed By: #### U AX, AICHA ####[address] [address] Nitrite,Ur Negative Normal NEG [facility] Comment on above: Performed By: #### U AX, AICHA ####[address] [address] Turbidity CLEAR Normal CLEAR [facility] Comment on above: Performed By: #### U AX, AICHA ####[address] [address] Urine, color YELLOW Normal YEL [facility] Comment on above: Performed By: #### U AX, AICHA ####[address] [address] Urine, glucose presence Negative Normal NEG [facility] Comment on above: Performed By: #### U AX, AICHA ####[address] [address] Urine, leukocyte esterase presence Negative Normal NEG [facility] Comment on above: Performed By: #### U AX, AICHA ####[facility] [address] [place] [address] Urine, pH 5.0 [pH] Normal 5.0-8.0 [facility] Comment on above: Performed By: #### U AX, AICHA ####[facility] [address] [place] [address] Urine, protein presence Negative Normal NEG M [facility] Comment on above: Performed By: #### U AX, AICHA ####[facility] [address] [place] [address] Urine, specific gravity 1.031 High 1.005-1.030 [facility] Comment on above: Performed By: #### U AX, AICHA ####[facility] [address] [place] [address] Urobilinogen,Ur Normal Normal NORM [facility] Comment on above: Performed By: #### U AX, AICHA ####[facility] [address] [place] [address] XR CHEST STANDARD TWO VWon 0 01-11-2017 XR CHEST STANDARD TWO VW EXAMINATION:TWO VIEWS OF THE CHEST01/11/2017 1:51 pmCOMPARISON:None.HIST ORY:ORDERING SYSTEM PROVIDED HISTORY: AMSTECHNOLOGIST PROVIDED HISTORY:Reason for exam:->AMSFINDINGS:Hea rt size is normal. Lungs are hyperinflated. Ill-defined increaseddensity is noted in the upper and lower lung zones on the right. The medialleft retrocardiac increased density is noted. This is likely a confluence ofshadows. No definitive pleural effusion or pneumothorax is notedIMPRESSION: Multifocal airspace disease on the right. Pneumonia is favored.Interpreted by:KAREY Knutsonigned by:Berenice Mosquera MD01/11/17Final result Normal [facility] Vital Signs Date Time Vital Sign Value Performing Clinician Faci lity 12-01-2023 13:03-0400 Body height 177.8 cm MEDICAL DETAIL REPRESENTATIVEMona Daverbacher Work Phone: [facility] 12-01-2023 13:03-0400 Body mass index (BMI) [Ratio] 23.1 kg/m2 MEDICAL DETAIL REPRESENTATIVEMona LainezBritney Tenzinrbacher Work Phone: [facility] 12-01-2023 13:03-0400 Body weight 73.02 kg MEDICAL DETAIL REPRESENTATIVEMona Daverbacher Work Phone: [facility] 12-01-2023 13:03-0400 Diastolic blood pressure 70 mm[Hg] MEDICAL DETAIL REPRESENTATIVEMona Daverbacher Work Phone: [facility] 12-01-2023 13:03-0400 Heart rate 90 /min MEDICAL DETAIL REPRESENTATIVEMona Daverbacher Work Phone: [facility] 12-01-2023 13:03-0400 SaO2% (BldA) [Mass fraction] 97 % MEDICAL DETAIL REPRESENTATIVEMona Wallaceacher Work Phone: [facility] 12-01-2023 13:03-0400 Systolic blood pressure 114 mm[Hg] MEDICAL DETAIL REPRESENTATIVEMona Wallaceacher Work Phone: [facility] 11-17-2023 10:52-0400 Body height 177.8 cm MEDICAL DETAIL REPRESENTATIVEMona Daverbacher Work Phone: [facility] 11-17-2023 10:52-0400 Body mass index (BMI) [Ratio] 23.2 kg/m2 MEDICAL DETAIL REPRESENTATIVEMona Daverbacher Work Phone: [facility] 11-17-2023 10:52-0400 Body weight 73.48 kg MEDICAL DETAIL REPRESENTATIVEMona Daverbacher Work Phone: [facility] 11-17-2023 10:52-0400 Diastolic blood pressure 62 mm[Hg] MEDICAL DETAIL REPRESENTATIVEMona Daverbacher Work Phone: [facility] 11-17-2023 10:52-0400 Heart rate 77 /min OPAL Jhanifer Madisonacher Work Phone: [facility] 11-17-2023 10:52-0400 SaO2% (BldA) [Mass fraction] 98 % MEDICAL DETAIL REPRESENTATIVE Britney Tenzinrbacher Work Phone: [facility] 11-17-2023 10:52-0400 Systolic blood pressure 108 mm[Hg] MEDICAL DETAIL REPRESENTATIVEMona JhaBritney Madisonacher Work Phone: [facility] 10-23-2023 09:59-0400 Body height 177.8 cm MEDICAL DETAIL REPRESENTATIVEMona LainezBritney Madisonacher Work Phone: [facility] 10-23-2023 09:59-0400 Body mass index (BMI) [Ratio] 23.2 kg/m2 MEDICAL DETAIL REPRESENTATIVEMona LainezBritney Madisonacher Work Phone: [facility] 10-23-2023 09:59-0400 Body temperature 97.9 [degF] MEDICAL DETAIL REPRESENTATIVEMona JhaBritney Madisonacher Work Phone: [facility] 10-23-2023 09:59-0400 Body weight 73.48 kg MEDICAL DETAIL REPRESENTATIVEMona JhaBritney Madisonacher Work Phone: [facility] 10-23-2023 09:59-0400 Diastolic blood pressure 73 mm[Hg] OPAL Wallaceacher Work Phone: [facility] 10-23-2023 09:59-0400 Heart rate 95 /min MEDICAL DETAIL REPRESENTATIVEMona Wallaceacher Work Phone: [facility] 10-23-2023 09:59-0400 Respiratory rate 20 /min MEDICAL DETAIL REPRESENTATIVEMona Daverbacher Work Phone: [facility] 10-23-2023 09:59-0400 SaO2% (BldA) [Mass fraction] 95 % MEDICAL DETAIL REPRESENTATIVEMona Wallaceacher Work Phone: [facility] 10-23-2023 09:59-0400 Systolic blood pressure 108 mm[Hg] OPAL Almazan Work Phone: [facility] 08-21-2023 14:090400 Body height 177.8 cm [facility] 08-21-2023 14:09-0400 Body mass index (BMI) [Ratio] 22.9 kg/m2 [facility] 08-21-2023 14:09-0400 Body temperature 98 [degF] [facility] 08-21-2023 14:09040 Body weight 72.57 kg [facility] 08-21-2023 14:090400 Diastolic blood pressure 87 mm[Hg] [facility] 08-21-2023 14:09040 Heart rate 79 /min [facility] 08-21-2023 14:090400 Respiratory rate 20 /min [facility] 08-21-2023 14:090400 SaO2% (BldA) [Mass fraction] 98 % [facility] 08-21-2023 14:09-0400 Systolic blood pressure 135 mm[Hg] [facility] Encounters Encounter Date Encounter Type Care Provider Facility Start: 12-01-2023 End: 12-01-2023 ambulatory OPAL Almazan Work Phone: [facility] Work Phone: Start: 12-01-2023 End: 12-01-2023 Patient encounter procedure OPAL [facility]zan [facility] Start: 11-17-2023 Patient encounter status OPAL Almazan Work Phone: [facility] Start: 11-17-2023 End: 11-17-2023 ambulatory OPAL Almazan Work Phone: [facility] Work Phone: Start: 11-17-2023 End: 11-17-2023 Encounter for general adult medical examination without abnormal findings OPAL Almazan Work Phone: [facility] Start: 11-17-2023 End: 11-17-2023 Patient encounter procedure OPAL Almazan Work Phone: [facility] Work Phone: Start: 10-23-2023 End: 10-23-2023 ambulatory OPAL Almazan Work Phone: [facility] Work Phone: Start: 10-23-2023 End: 10-23-2023 Patient encounter procedure OPAL Almazan Work Phone: [facility] Work Phone: Start: 10-23-2023 Registered Recurring OPAL Almazan Work Phone: [facility] Work Phone: Start: 10-23-2023 ambulatory Mhd Van Martinez Fa cility:[facility] Start: 08-21-2023 End: 08-21-2023 ambulatory [facility] Work Phone: Start: 08-21-2023 End: 08-21-2023 Patient encounter procedure [facility] Work Phone: Start: 05-06-2022 End: 05-07-2022 ambulatory TIFFANIE MILES [facility] Start: 03-15-2020 End: 03-16-2020 Patient encounter procedure LORE MARKER Facility: Start: 01-11-2017 End: 01-13-2017 Evaluation and management of inpatient [facility] Procedures Date Procedure Procedure Detail Performing Clinician Start: 10-20-2023 Carcinoembryonic antigen cea Mhd Van Martinez Comment on above: Result Comment: Nilsa brantley tumor marker results determined by assays using different manufacturers or methods may not be comparable. [facility] religious studies professor and method: ALEXI UNICEL DXI, 2 SITE IMMUNOENZYMATIC ?SANDWICH? ASSAY. PERFORMED BY: [place] [address] PATHOLOGIST [employer] QA LAB TECHNICIAN NIKITA URIBE M.D. Performed By: #### C EA, SCAN CBC #### [address] Start: 10-20-2023 Computed tomography of abdomen and pelvis with contrast MEDICAL DETAIL REPRESENTATIVEMona Almazan Work Phone: Start: 10-20-2023 CT of thorax with contrast MEDICAL DETAIL REPRESENTATIVEMona Almazan Work Phone: Start: 01-13-2017 CBC BETRO SADE K Start: 01-13-2017 DISCHARGE PATIENT ADRIANA LLOYD Start: 01-13-2017 INITIATE OXYGEN THER APY PROTOCOL HERNANRO GABINO Start: 01-13-2017 CBC BETRO SADE K Start: 01-12-2017 BASIC METABOLIC PANEL B CHUY LLOYD Start: 01-12-2017 LACTIC ACID, WHOLE BLOOD ADRIANA LLOYD Start: 01-12-2017 RAPID INFLUENZA A/B ANTIGENS ADRIANA LLOYD Start: 01-12-2017 IP CONSULT TO SOCIAL WORK ADRIANA LLOYD Start: 01-12-2017 IP CONSULT TO GI ADRIANA LLOYD Start: 01-12-2017 BLOOD GAS, VENOUS ADRIANA LLOYD Start: 01-12-2017 PREVIOUS SPECIMEN ADRIANA LLOYD Start: 01-12-2017 INITIATE OXYGEN THER APY PROTOCOL HERNANRO GABINO Start: 01-12-2017 Us abdominal real ti me w/image limited ADRIANA LLOYD Start: 01-12-2017 CBC BETRO SADE K Start: 01-12-2017 HEMOGLOBIN A1C HERNANRO SA DEK Start: 01-12-2017 LACTIC ACID, WHOLE BLOOD HERNANRO SADEK Start: 01-12-2017 URINALYSIS WITH MICROSCOPIC HERNANRO GABINO Start: 01-12-2017 STREP PNEUMONIAE ANTIGEN HERNANRO GABINO Start: 01-12-2017 LEGIONELLA ANTIGEN, URINE HERNANRO GABINO Start: 01-12-2017 LACTIC ACID, WHOLE BLOOD HERNANRO GABINO Start: 01-11-2017 C-reactive protein HERNANR O GABINO Start: 01-11-2017 CK HERNANRO MADISONE K Start: 01-11-2017 HEPATITIS PANEL, ACUTE BETRO SADTIMA Start: 01-11-2017 LIPASE ADRIANA RODRIGUES K Start: 01-11-2017 MAGNESIUM ADRIANA RODRIGUES K Start: 01-11-2017 MYOGLOBIN, SERUM HERNANRO SADEK Start: 01-11-2017 PROCALCITONIN ADRIANA ALFRED Start: 01-11-2017 VITAMIN D 25 HYDROXY BE TANIA WALLACEEK Start: 01-11-2017 CULTURE BLOOD #1 BETRO SADEK Start: 01-11-2017 IP CONSULT TO PHARMACY HERNANRO SADEK Start: 01-11-2017 OT EVAL AND TREAT BETRO SADEK Start: 01-11-2017 PT EVAL AND TREAT BETRO SADTIMA Start: 01-11-2017 SPUTUM INDUCTION BETRO SADEK Start: 01-11-2017 Cul bact xcpt urine blood/stool aerobic isol HERNANRO SADEK Start: 01-11-2017 DIET GENERAL ADRIANA Knight Start: 01-11-2017 FULL CODE ADRIANA Knight Start: 01-11-2017 INITIATE OXYGEN THER APY PROTOCOL HERNANRO MADISONTIMA Start: 01-11-2017 NOTIFY PHYSICIAN (SPECIFY) HERNANAVA MADISONTIMA Start: 01-11-2017 PLACE INTERMITTENT P NEUMATIC COMPRESSION DEVICE HERNANRO SADTIMA Start: 01-11-2017 REASON FOR NO CHEMIC AL VTE PROPHYLAXIS HERNANRO SADEK Start: 01-11-2017 SUBCONTRACT MANAGER CLINICAL BEDSIDE SWALLOW EVALUATION AND TREATMENT HERNANRO SADEK Start: 01-11-2017 TELEMETRY MONITORING PETEY LLOYD Start: 01-11-2017 VITAL SIGNS ADRIANA Knight Start: 01-11-2017 PATIENT STATUS (FROM ED OR OR/PROCEDURAL) HERNANRO SADEK Start: 01-11-2017 IP CONSULT TO FRONT SERVICES AGENT AL MEDICINE HERNANRO SADEK Start: 01-11-2017 CULTURE BLOOD #1 BETRO SADTIMA Start: 01-11-2017 LACTIC ACID, WHOLE BLOOD BETRO SADEK Start: 01-11-2017 IP CONSULT TO HOSPITALIST ADRIANA WALLACETIMA Start: 01-11-2017 Ct cervical spine w/ o contrast material HERNANRO SADEK Start: 01-11-2017 Ct head/brain w/o co ntrast material BETRO SADEK Start: 01-11-2017 Ct thorax w/o contra st material BETRO SADEK Start: 01-11-2017 UA W/REFLEX CULTURE BET RO SADEK Start: 01-11-2017 URINE DRUG SCREEN BETRO SADEK Start: 01-11-2017 PHARMACY TO DOSE VANCOMYCIN ADRIANA LLOYD Start: 01-11-2017 Chest x-ray ADRIANA Knight Start: 01-11-2017 ACETAMINOPHEN LEVEL HERNAN LLOYD Start: 01-11-2017 AMMONIA ADRIANA Knight Start: 01-11-2017 CBC ADRIANA Knight Start: 01-11-2017 COMPREHENSIVE METABO LIC PANEL ADRIANA LLOYD Start: 01-11-2017 ETHANOL ADRIANA Knight Start: 01-11-2017 SALICYLATE LEVEL ADRIANA LLOYD Start: 01-11-2017 T4, FREE ADRIANA Knight Start: 01-11-2017 TOXIC TRICYCLIC SC,B BE TANIA LLOYD Start: 01-11-2017 TSH WITH REFLEX BETRO S ADEK Start: 01-11-2017 ANION GAP (CALC) POC BE TRO MADISONEK Start: 01-11-2017 CALCIUM, IONIC (POC) BE TRO MADISONEK Start: 01-11-2017 CHLORIDE (POC) ADRIANA GHOTRA DEK Start: 01-11-2017 CREATININE W/GFR POI NT OF CARE ADRIANA LLOYD Start: 01-11-2017 HGB/HCT ADRIANA Knight Start: 01-11-2017 LACTIC ACID,POINT OF CARE ADRIANA LLOYD Start: 01-11-2017 POCT GLUCOSE ADRIANA Knight Start: 01-11-2017 POTASSIUM (POC) HERNANRO S ADEK Start: 01-11-2017 SODIUM (POC) ADRIANA Knight Start: 01-11-2017 VENOUS BLOOD GAS, PO INT OF CARE ADRIANA LLOYD Start: 01-11-2017 EKG 12-LEAD ADRIANA Knight Start: 01-11-2017 POC CHEMISTRY (NA,K,ICA,GLU,CALC HCT/HGB,LACTATE,CREA,CL) ADRIANA LLOYD Start: 01-11-2017 POCT TROPONIN ADRIANA ALFRED Start: 01-11-2017 Ct head/brain w/o co ntrast material HERNANAVA LLOYD Plan of Treatment Date Care Activity Detail Author Start: 12-01-2023 Patient referral [facility] Work Phone: Comprehensive metabo lic 1999 panel - Serum or Plasma [facility] Comprehensive metabo lic 1999 panel - Serum or Plasma [facility] CT Abdomen and Pelvi s W contrast IV [facility] CT Chest W contrast IV [facility] CT Chest W contrast IV [facility] Patient referral [facility] Work Phone: [facility] Payers Date Payer Category Payer Self-pay 2023 Medicaid [id number] 1965 Unknown [id number] 1961 Unknown [id number] Unknown [id number] Social History Date Type Detail Facility Start: 08-21-2023 Tobacco smoking stat [facility] Current some day smoker [facility] Start: 1965 Sex Assigned At Male F [facility] Chief complaint+Reason for visit Narrative Note Date & Type Note Facility Chief complaint+Reason for visit Narrative Reason for Visit History of esophagea l cancer Intra-abdominal lymphadenopathy Left lower lobe pulmonary nodule Dental abscess History of esophageal cancer Left lower lobe pulmonary nodule Neuropathy Screening for lipid disorders Wellness examination Chronic pain Neuropathy [facility] Work Phone: Evaluation note Note Date & Type Note Facility Evaluation note No assessment information availa ble [facility] Work Phone: Evaluation note Note Date & Type Note Facility Evaluation note Diagnosis Onset Date History of esophageal cancer acute Intra-abdominal lymphadenopathy acute Left lower lobe pulmonary nodule acute History of esophageal cancer acute Intra-abdominal lymphadenopathy acute Left lower lobe pulmonary nodule acute [facility] Work Phone: Evaluation note Note Date & Type Note Facility Evaluation note Diagnosis Onset Date History of esophageal cancer acute Intra-abdominal lymphadenopathy acute Left lower lobe pulmonary nodule acute History of esophageal cancer acute Intra-abdominal lymphadenopathy acute Left lower lobe pulmonary nodule acute History of esophageal cancer acute Left lower lobe pulmonary nodule acute Neuropathy acute Screening for lipid disorders acute Wellness examination acute [facility] Work Phone: Evaluation note Note Date & Type Note Facility Evaluation note Diagnosis Onset Date History of esophageal cancer acute Intra-abdominal lymphadenopathy acute Left lower lobe pulmonary nodule acute Dental abscess acute History of esophageal cancer acute Left lower lobe pulmonary nodule acute Neuropathy acute Screening for lipid disorders acute Wellness examination acute Chronic pain acute Neuropathy acute [facility] Work Phone: Hospital Discharge instructions Note Date & Type Note Facility Hospital Discharge instructions Ambulatory OrdersReferral to Neurology Location: None SelectedReferral to Psychiatry Time Frame: 12/01/23, Location: None Selected [facility] Work Phone: Progress note Note Date & Type Note Facility Progress note Note Date/Time August 21, 2023 2:04pm [facility] [place] [address] Cancer Center Note Signed Patient: Berenice Leary MR#: [id number] : 1965 Acct:[id number] Age/Sex: 58 / M Type: DEP AMB Date of Service: 08/21/23 Copies to: Britney Almazan APRN, Britney Chisholm~ Assessment & Plan A/P (1) History of esophageal cancer: (2) Left lower lobe pulmonary nodule: (3) Intra-abdominal lymphadenopathy: Plan The details are in the HPI but in summary this is a 58-year-old nice gentleman with history of polysubstance abuse and history of esophageal cancer diagnosed with a 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 He then been followed at [facility] by medical oncology and radiation oncology with no evidence of recurrence to date other than sporadic nonspecific findings of lung nodules or occasional intrathoracic or intra-abdominal lymph will followbeen waxing and waning and variably changing or resolving over the last 10 years. On 08/21/2023 he moved his care to find at [facility] and want to be followed here locally and obtain a CAT scan for his active surveillance. He is almost 10 years from his surgery date in September 2013. His last CAT scans in February 2022 revealed intra-abdominal lymph node is next to the left kidney andalso multiple left lower lobe lung nodules that were not biopsied and need to befollowed. He decreased tobacco smoking significantly as he smokes 1 cigarette/week and he drinks only 1 beer per week as per patient as this is much better compared with his history of tobacco smoking and alcohol drinking in the past prior to his cancer diagnosis. Plan: Obtain CT of the chest abdomen pelvis with contrast for his history of esophageal cancer treated as stated above, left lower lobe lung nodules, intermittent mediastinal or left hilar lymph node and for intra-abdominal lymph node next to the left kidney as well. Obtain CEA, CBC with differential CMP. Return in 2 weeks for the results. Orders: Orders CT abdomen pelvis w con 1 Week C15.9 - Malignant neoplasm of esophagus, unspecified, R59.9 - Enlarged lymph nodes, unspecified, Z01.89 - Encounter for other specified special examinations Complete Blood Count Auto Diff 1 Week C15.9 - Malignant neoplasm of esophagus, unspecified, Z01.89 - Encounter for other specified special examinations Comprehensive Metabolic Panel 1 Week C15.9 - Malignant neoplasm of esophagus, unspecified, Z01.89 - Encounter for other specified special examinations Carcinoembryonic Antigen 1 Week C15.9 - Malignant neoplasm of esophagus, unspecified, Z01.89 - Encounter for other specified special examinations CT chest w con 1 Week C15.9 - Malignant neoplasm of esophagus, unspecified, R59.9 - Enlarged lymph nodes, unspecified, Z01.89 - Encounter for other specified special examinations Patient Instructions: CT C/A/P cbc,cmp,cea 1 week follow up after CHEMO PLAN No Active Chemotherapy History of Present Illness TORY Mei is a 58-year-old nice gentleman who has a history of polysubstance abuse with chronic sacral pain due to healed sacral decub ulcers and sacral back pain with lumbar radiculopathy was diagnosed with esophageal cancer in 2013 treated with neoadjuvant concurrent chemoradiation followed by surgery followed by active surveillance at [facility] [place]. He has been followed for active surveillance at the [facility] but lately his medical oncologist left the ER and was replaced with another oncologist who he did not like and wanted to transfer his care to [address] [place] [phone] since he lives in [facility] which is assisted between [facility] and [facility]. Oncology history started when he was found to have cT3 N2 M0 adenocarcinoma of the distal esophagus, HER2/herberth amplified, received a neoadjuvant concurrent chemoradiation in April 2013 followed by surgery on 09/28/2023 and the pathologic stage was ypT1a N1. Neoadjuvant chemo that was in concurrent with radiation is not clear to me as itwas not included in the report to be obtained. However he completed chemoradiation. The cross trial with radiation delivered to his esophagus and GE junction tumor and regional lymph nodes to 5000 cGy in 25 fractions, completed between 05/26/2013 and 07/27/2013. The radiation treatment course was protracted due to poor patient compliance with treatment schedule. Radiation therapy was tolerated with the expected acute toxicities he had. On 09/27/2013 he received laparoscopic [place] [facility] esophagectomy and pathology stage was adenocarcinoma grade 2 margins were negative and the stage was ypT1a N1. PET CT scan on 07/13/2015 revealed mild but increasing activity noted in 1 lymph node in the left upper mediastinum with maximal SUV increased from 1.32 to 1.5. No abnormal activity is noted adjacent to the patient gastric polyp-through or within lymph nodes within the abdomen. He had a follow-up PET CT scan on 02/24/2017 which revealed new consolidation inthe right lung base with maximal SUV of 3.5. Scattered groundglass opacities and subcentimeter nodules bilaterally predominantly on the right. The majority of these were too small to accurately characterize by PET CT scan but could be sequelae of aspiration in the setting of history of vomiting cannot rule out metastatic disease. In comparison of that PET CT scan with the previous PET lung nodules are mildly PET avid and do not seem to be metastatic disease as perthe radiation oncologist note there. Tragically stated without disease recurrence from September 2013 actual medical oncology consult visit on 08/21/2023. This is almost 10 years now. Patient currently denies any chest pain or shortness of breath other than from the pain in the scar in the right lateral chest wall from the surgical incision. Denies any difficulty swallowing however he is smaller meals due to surgical resection of the stomach with either liquids esophagectomy. He denies any rectal bleeding or melena or gross hematuria or abdominal pain. He has a chronic back pain from his lumbar spine injuries in the past. No other complaints. All other 14 point systems were reviewed and are otherwise negative. Intake Vitals/Pain Assessment 08/21/23 14:09 Height 5 ft 10 in Weight 72.575 kg BMI 22.9 Body Fat % 35.93 BP 135/87 Blood Pressure Location Rt brachial Position Sitting Temp 98 F Temp Source Temporal Pulse 79 Pulse Source NIBP Respiration 20 Pulse Oximetry (%) 98 Oxygen Delivery Method room air Are you having pain? Yes Pain Location generalized Pain scale (0-10) 6 Intake Visit Reasons: New Pt - Hx of Esophageal Cancer Accompanied by: Friend Allergies codeine Allergy (Verified 08/21/23 14:18) Rash - Last Reconciled 08/21/23 by Marion Charles pregabalin 300 mg PO BID Gastrointestinal Is the patient taking opioids for pain control?: No Bowel Protocol for Opioids Given: No Bowel Pattern: Regular Bowel Movement Aid(s): None Falls Fall Precaution Measures Taken: Patient in chair Nurse's Note: Patient is referred by Britney Almazan for history of esophageal cancer. Patient states that the last time he was seen by an oncologist was in 2020. [facility] History Attestation statement: The following information was validated with the patient. Medical History Medical History (Updated 08/21/23 @ 14:49 by Julio Martinez MD) Intra-abdominal lymphadenopathy Left lower lobe pulmonary nodule History of esophageal cancer Closed fracture of rib Heartburn Asthenia Fibromyositis Sacral back pain Pressure ulcer Chronic pain Tobacco dependence syndrome Anxiety state Deficiency of macronutrients Moderate protein-calorie malnutrition (weight for age 60-74% of standard) Primary malignant neoplasm of lower third of esophagus Surgical History Surgical History (Updated 08/21/23 @ 14:08 by Marion Charles) History of back surgery x2 History of bronchoscopy Family History Family History (Updated 05/12/23 @ 10:46 by Provider Conversion) Father Heart disease Mother [facility]: Diagnosed with St[facility] Social History Social History (Updated 08/21/23 @ 14:18 by Marion Charles) Smoking status: Current some day smoker What tobacco products do you use: cigarettes Cigarettes per day: 2 Within the past year, how often did you have a drink containing alcohol: monthly or less In the past 12 months, have you used illegal drugs or prescription drugs for non-medical reasons?: No Review of Systems ROS Details: All systems reviewed & no additional complaints except as documented General: Patient denied fevers, chills, rigors, weight loss or loss of appetite. Head: Patient denied any headaches or vision changes Thoracic: Patient denied any shortness of breath or cough or hemoptysis Cardiovascular patient denies any chest pain or leg edema GI: Patient denies any nausea vomiting rectal bleed diarrhea : Patient denied gross hematuria. Hematology: Patient denied any bleeding from any source. No easy bruising. Lymphatic: No enlarged LAP anywhere. Skin: Normal skin exam no rashes or suspicious lesions. Neurological patient denies any headache or dizziness or focal weakness or sensory changes. Physical Exam EXAM ECOG performance status 1 HEENT normocephalic atraumatic pupils are equal and round Neck supple without thyromegaly or any cervical lymphadenopathy. Chest clear to auscultation bilaterally without wheezing crackles or rhonchi Heart regular rate and rhythm S1-S2 without murmurs gallop or rub Abdomen soft nontender not distended without hepatosplenomegaly or masses clinically Extremities no edema of the lower extremities Skin without any suspicious rashes Lymphatic system no lymphadenopathy in the cervical area axillary areas or inguinal areas bilaterally Neurological exam patient is cooperative alert and oriented x3 no focal deficits. Results - [facility] (Med Onc) LAB RESULTS No Data to Display Dictated By: Julio Martinez MD DD/ 1401 Signed By: <Electronically signed by Julio Martinez MD> 08/21/23 1506 [facility] Work Phone: Progress note Note Date & Type Note Facility Progress note Note Date/Time October 23, 2023 9:58am [facility] [place] [address] Cancer Center Note Signed Patient: Berenice Leary MR#: [id number] : 1965 Acct:[id number] Age/Sex: 58 / M Type: REG AMB Date of Service: 10/23/23 Copies to: Britney Almazan APRN, CNP~ Assessment & Plan A/P (1) History of esophageal cancer: (2) Left lower lobe pulmonary nodule: (3) Intra-abdominal lymphadenopathy: Plan The details are in the HPI but in summary this is a 58-year-old nice gentleman with history of polysubstance abuse and history of esophageal cancer diagnosed with a 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 - He then been followed at [facility] by medical oncology and radiation oncology with no evidence of recurrence to date other than sporadic nonspecific findings of lung nodules or occasional intrathoracic or intra-abdominal lymph nodes been waxing and waning and variably changing or resolving over the last 10 years. -On 08/21/2023 he moved and transferred his care to our [facility] center and wants to be followed here locally and obtain a CAT scan for his active surveillance. He is almost 10 years from his surgery date in September 2013. His last CAT scans in February 2022 revealed intra-abdominal lymph node next to the left kidney and also multiple left lower lobe lung nodules that were not biopsied and need to be followed. He decreased tobacco smoking significantly as he smokes 1 cigarette/week and he drinks only 1 beer per week as per patient as this is much better compared with his history of tobacco smoking and alcohol drinking in the past prior to his cancer diagnosis. The plan is to rule out recurrent disease and any suspicious lymphadenopathy or lung nodules. Therefore we will obtained CT of the chest abdomen pelvis with contrast for his history of esophageal cancer treated as stated above, left lower lobe lung nodules, intermittent mediastinal or left hilar lymph node and for intra-abdominal lymph node next to the left kidney as well. Obtain CEA, CBC with differential CMP. 10/23/23: His labs on 10/20/2023 revealed normal WBC, RBC, normal hemoglobin and platelet count low at 117. WBC differential is unremarkable. Platelet is slightly enlarged. Renal function, calcium were normal and AST was 46 with normal alk phos and ALT and total protein and total bilirubin. CEA was normal at 2.2. CAT scan of chest abdomen pelvis done on 10/20/2023 revealed: 1. No CT evidence of tumor recurrence or metastatic disease within the chest, abdomen or pelvis. 2. Degree of groundglass tree-in-bud nodularity primarily involving the left lung grossly similar to the prior outside CT chest study. A sequela of an infectious or inflammatory process possibly aspiration etiology cannot BE excluded. CT follow-up is recommended. 3. Evidence of constipation. Plan: No concerning findings on the CAT scan from the chest abdomen pelvis on 10/20/2023or on the labs. He has however mild low platelet which could be related to his alcohol use history. He denied any alcohol drinking for the last 3 months. This can be also ITP at this point I do not see any necessity to investigate this further since his platelet count is only 117. Plan: Low-dose chest CT in 1 year and CBC with differential CMP iron studies B12 and folate in 1 year and see him then. Orders: Orders Comprehensive Metabolic Panel 1 Year R91.1 - Solitary pulmonary nodule, Z85.01 -Personal history of malignant neoplasm of esophagus Ferritin 1 Year R91.1 - Solitary pulmonary nodule, Z85.01 - Personal history of malignant neoplasm of esophagus Vit. B12/Folate Profile 1 Year R91.1 - Solitary pulmonary nodule, Z85.01 - Personal history of malignant neoplasm of esophagus CT chest w con 1 Year R91.1 - Solitary pulmonary nodule, Z85.01 - Personal history of malignant neoplasm of esophagus Complete Blood Count Auto Diff 1 Year R91.1 - Solitary pulmonary nodule, Z85.01 - Personal history of malignant neoplasm of esophagus Iron and TIBC Profile 1 Year R91.1 - Solitary pulmonary nodule, Z85.01 - Personal history of malignant neoplasm of esophagus Patient Instructions: ct chest in 1 year cbc,cmp,iron,b12 also return 1 year CHEMO PLAN No Active Chemotherapy History of Present Illness TORY Mei is a 58-year-old nice gentleman who has a history of polysubstance abuse with chronic sacral pain due to healed sacral decub ulcers and sacral back pain with lumbar radiculopathy was diagnosed with esophageal cancer in 2013 treated with neoadjuvant concurrent chemoradiation followed by surgery followed by active surveillance at [facility] [place]. He has been followed for active surveillance at the [facility] but lately his medical oncologist left the ER and was replaced with another oncologist who he did not like and wanted to transfer his care to [address] [place] [id number] since he lives in [facility] which is assisted between [facility] and [facility]. Oncology history started when he was found to have cT3 N2 M0 adenocarcinoma of the distal esophagus, HER2/herberth amplified, received a neoadjuvant concurrent chemoradiation in April 2013 followed by surgery on 09/28/2023 and the pathologic stage was ypT1a N1. Neoadjuvant chemo that was in concurrent with radiation is not clear to me as itwas not included in the report to be obtained. However he completed chemoradiation. The cross trial with radiation delivered to his esophagus and GE junction tumor and regional lymph nodes to 5000 cGy in 25 fractions, completed between 05/26/2013 and 07/27/2013. The radiation treatment course was protracted due to poor patient compliance with treatment schedule. Radiation therapy was tolerated with the expected acute toxicities he had. On 09/27/2013 he received laparoscopic [place] [facility] esophagectomy and pathology stage was adenocarcinoma grade 2 margins were negative and the stage was ypT1a N1. PET CT scan on 07/13/2015 revealed mild but increasing activity noted in 1 lymph node in the left upper mediastinum with maximal SUV increased from 1.32 to 1.5. No abnormal activity is noted adjacent to the patient gastric polyp-through or within lymph nodes within the abdomen. He had a follow-up PET CT scan on 02/24/2017 which revealed new consolidation inthe right lung base with maximal SUV of 3.5. Scattered groundglass opacities and subcentimeter nodules bilaterally predominantly on the right. The majority of these were too small to accurately characterize by PET CT scan but could be sequelae of aspiration in the setting of history of vomiting cannot rule out metastatic disease. In comparison of that PET CT scan with the previous PET lung nodules are mildly PET avid and do not seem to be metastatic disease as [facility] radiation oncologist note there. Tragically stated without disease recurrence from September 2013 actual medical oncology consult visit on 08/21/2023. This is almost 10 years now. Patient currently denies any chest pain or shortness of breath other than from the pain in the scar in the right lateral chest wall from the surgical incision. Denies any difficulty swallowing however he is smaller meals due to surgical resection of the stomach with either liquids esophagectomy. He denies any rectal bleeding or melena or gross hematuria or abdominal pain. He has a chronic back pain from his lumbar spine injuries in the past. No other complaints. 10/23/23: Is here for 2 weeks follow-up for his results of the CAT scan of chest abdomen pelvis and labs to rule out suspicious lung nodules or mediastinal and mesenteric lymphadenopathy and to rule out recurrent of his esophageal cancer. He smokes only 5 cigarettes every 2 weeks and denied any alcohol intake for 3 months by now. He denies any new complaints. His labs on 10/20/2023 revealed normal WBC, RBC, normal hemoglobin and platelet count low at 117. WBC differential is unremarkable. Platelet is slightly enlarged. Renal function, calcium were normal and AST was 46 with normal alk phos and ALT and total protein and total bilirubin. CEA was normal at 2.2. CAT scan of chest abdomen pelvis done on 10/20/2023 revealed: 1. No CT evidence of tumor recurrence or metastatic disease within the chest, abdomen or pelvis. 2. Degree of groundglass tree-in-bud nodularity primarily involving the left lung grossly similar to the prior outside CT chest study. A sequela of an infectious or inflammatory process possibly aspiration etiology cannot BE excluded. CT follow-up is recommended. 3. Evidence of constipation. All other 14 point systems were reviewed and are otherwise negative. Intake Vitals/Pain Assessment 10/23/23 09:59 Height 5 ft 10 in Weight 73.482 kg BMI 23.2 Body Fat % 36.32 BP 108/73 Blood Pressure Location Rt brachial Position Sitting Temp 97.9 F Temp Source Temporal Pulse 95 Pulse Source NIBP Respiration 20 Pulse Oximetry (%) 95 Oxygen Delivery Method room air Are you having pain? No Intake Visit Reasons: Follow Up Allergies codeine Allergy (Verified 10/23/23 10:01) Rash - Last Reconciled 10/23/23 by Marion Charles pregabalin 300 mg PO BID Gastrointestinal Is the patient taking opioids for pain control?: No Bowel Protocol for Opioids Given: No Bowel Pattern: Regular Bowel Movement Aid(s): None Falls Fall Precaution Measures Taken: Patient in chair Nurse's Note: Patient is here for a 2 month follow up with labs and imaging for review. There are also outside records for review. Patient voices no concerns at time of intake, [facility] Medical History Medical History (Updated 08/21/23 @ 14:49 by Julio Martinez MD) Intra-abdominal lymphadenopathy Left lower lobe pulmonary nodule History of esophageal cancer Closed fracture of rib Heartburn Asthenia Fibromyositis Sacral back pain Pressure ulcer Chronic pain Tobacco dependence syndrome Anxiety state Deficiency of macronutrients Moderate protein-calorie malnutrition (weight for age 60-74% of standard) Primary malignant neoplasm of lower third of esophagus Surgical History Surgical History (Updated 08/21/23 @ 14:08 by Marion Charles) History of back surgery x2 History of bronchoscopy Family History Family History (Updated 01/29/24 @ 10:46 by Provider Conversion) Father Heart disease Mother History of stroke Legacy FamHx Problem: Diagnosed with Stroke Social History Social History (Updated 08/21/23 @ 14:18 by Marion Charles) Smoking status: Current some day smoker What tobacco products do you use: cigarettes Cigarettes per day: 2 Within the past year, how often did you have a drink containing alcohol: monthly or less In the past 12 months, have you used illegal drugs or prescription drugs for non-medical reasons?: No Review of Systems ROS Details: All systems reviewed & no additional complaints except as documented General: Patient denied fevers, chills, rigors, weight loss or loss of appetite. Head: Patient denied any headaches or vision changes Thoracic: Patient denied any shortness of breath or cough or hemoptysis Cardiovascular patient denies any chest pain or leg edema GI: Patient denies any nausea vomiting rectal bleed diarrhea : Patient denied gross hematuria. Hematology: Patient denied any bleeding from any source. No easy bruising. Lymphatic: No enlarged LAP anywhere. Skin: Normal skin exam no rashes or suspicious lesions. Neurological patient denies any headache or dizziness or focal weakness or sensory changes. Physical Exam EXAM ECOG performance status 1 HEENT normocephalic atraumatic pupils are equal and round Neck supple without thyromegaly or any cervical lymphadenopathy. Chest clear to auscultation bilaterally without wheezing crackles or rhonchi Heart regular rate and rhythm S1-S2 without murmurs gallop or rub Abdomen soft nontender not distended without hepatosplenomegaly or masses clinically Extremities no edema of the lower extremities Skin without any suspicious rashes Lymphatic system no lymphadenopathy in the cervical area axillary areas or inguinal areas bilaterally Neurological exam patient is cooperative alert and oriented x3 no focal deficits. [facility] - [facility] RESULTS Corrected WBC 9.7 X10E3/uL (4.1-10.5) 10/20/23 11:05 Hgb 13.3 g/dL (13.0-17.0) 10/20/23 11:05 Hct 39.9 % (38.8-50.0) 10/20/23 11:05 MCV 88.3 fl (83.5-101) 10/20/23 11:05 RDW 15.2 % (12.0-14.8) H 10/20/23 11:05 Plt Count 117 x10E3/uL (150-450) L 10/20/23 11:05 Sodium 135 mmol/L (136-145) L 10/20/23 11:05 Potassium 3.8 mmol/L (3.5-5.1) 10/20/23 11:05 BUN 13 mg/dL (7-25) 10/20/23 11:05 Creatinine 0.82 mg/dL (0.70-1.30) 10/20/23 11:05 Glucose 124 mg/dL (70-100) H 10/20/23 11:05 Est GFR (CKD-EPI) > 60.0 mL/Min 10/20/23 11:05 Calcium 9.1 mg/dL (8.6-10.3) 10/20/23 11:05 Total Bilirubin 0.9 mg/dl (0.3-1.0) 10/20/23 11:05 AST 46 U/L (13-39) H 10/20/23 11:05 ALT 42 U/L (7-52) 10/20/23 11:05 Alkaline Phosphatase 101 U/L (34-104) 10/20/23 11:05 Total Protein 7.2 gm/dL (6.4-8.9) 10/20/23 11:05 Albumin 3.5 gm/dL (3.5-5.7) 10/20/23 11:05 Carcinoembryonic Ag 2.2 ng/mL (0.0-3.0) 10/20/23 11:05 Dictated By: Julio Martinez MD DD/ [id number] Signed By: <Electronically signed by Julio Martinez MD> 10/23/23 1021 [facility] Work Phone: Summary Purpose Family History Relationship Condition Age at Onset Recorded Date/T carla father Heart disease Unknown Unknown Not Specified History of stroke Unknown Relationship Condition Age at Onset Recorded Date/T carla father Heart disease Unknown Unknown mother History of stroke Unknown Advance Directives Advance Directive Response Recorded Date/ Time Advance Directives No May 12, 2023 2:14pm Chief Complaint and Reason for Visit Chief Complaint New Pt - Hx of Esoph ageal Cancer Chief Complaint New Pt - Hx of Esoph ageal Cancer hx of malignant neoplasm Follow Up Reason for Visit History of esophagea l cancer Intra-abdominal lymphadenopathy Left lower lobe pulmonary nodule History of esophageal cancer Intra-abdominal lymphadenopathy Left lower lobe pulmonary nodule Chief Complaint New Pt - Hx of Esoph ageal Cancer hx of malignant neoplasm Follow Up 6 month follow up Reason for Visit History of esophagea l cancer Intra-abdominal lymphadenopathy Left lower lobe pulmonary nodule History of esophageal cancer Intra-abdominal lymphadenopathy Left lower lobe pulmonary nodule History of esophageal cancer Left lower lobe pulmonary nodule Neuropathy Screening for lipid disorders Wellness examination Additional Source Comments (unrecognized sect ion and content) No Status Records FoundNo Status Records FoundNo Status Records FoundNo Status Records FoundNo Status Records FoundNo Status Records Found INFORMATION SOURCE (unrecogn ized section and content) DATE CREATED AUTHOR 10/08/2017 [facility] DATE CREATED AUTHOR AUTHOR'S ORGANIZ ATION 03/21/2020 [facility] DATE CREATED AUTHOR AUTHOR'S ORGANIZ ATION 11/15/2021 [facility] DATE CREATED AUTHOR AUTHOR'S ORGANIZ ATION 11/06/2023 [facility] DATE CREATED AUTHOR AUTHOR'S ORGANIZ ATION 11/24/2023 [facility] Care Teams (unrecognized sec tion and content) Team Status: Active Member Role Status Dates Britney Almazan APRN FINE CHEMICALS OPERATOR-C Primary Care Provider Active Team Status: Inactive Member Role Status Dates Britney Almazan APRN FINE CHEMICALS OPERATOR-C Primary Care Provider Active Start: August 21, 2023 End: August 21, 2023 Julio Martinez MD Attending Provider Active Start: August 21, 2023 End: August 21, 2023 Tha Tan Referring Provider Active S tart: August 21, 2023 End: August 21, 2023 Team Status: Active Member Role Status Dates Britney Almazan APRN FINE CHEMICALS OPERATOR-C Primary Care Provider, Referring Provider Active Start: October 23, 2023 Julio Martinez MD Attending Provider Active Start: October 23, 2023 Team Status: Inactive Member Role Status Dates Britney Almazan APRN FINE CHEMICALS OPERATOR-C Primary Care Provider Active Start: October 23, 2023 End: October 23, 2023 Mhd Van Martinez MD Attending Provider Active Start: October 23, 2023 End: October 23, 2023 Team Status: Inactive Member Role Status Dates OPAL Walker Primary Care Provider, Attending Provider Active Start: November 17, 2023 End: November 17, 2023 Team Status: Inactive Member Role Status Dates OPAL Walker Primary Care Provider, Attending Provider Active Start: December 01, 2023 End: December 01, 2023 Goals (unrecognized section and content) Goals may be documented in a n alternate sectionGoals may be documented in an alternate sectionGoals may be documented in an alternate sectionGoals may be documented in an alternate section FOR RECORDS PERTAINING TO PATIENTS WHO ARE OR HAVE BEEN ENROLLED IN A CHEMICAL DEPENDENCY/SUBSTANCEABUSE PROGRAM, SOME INFORMATION MAY BE OMITTED. This clinical summary was aggregated from multiple sources. Caution should be exercised in using it in the provision of clinical care. This summary normalizes information from multiple sources, and as a consequence, information in this document may materially change the coding, format and clinical context of patient data. In addition, data may be omitted in some cases. CLINICAL DECISIONS SHOULD BE BASED ON THE PRIMARY CLINICAL RECORDS. [facility]. provides no warranty or guarantee of the accuracy or completeness of information in this document.
[2024-07-19 19:52] LABS: Basophils Absolute Auto 0.1 10^3/uL (0.0-0.1); Basophils Percent Auto 0.5 % (0.2-2.0); Eosinophils Percent Auto 0.1 % (0.9-7.0); Hematocrit 42.6 % (42.0-54.0); Hemoglobin 13.9 g/dL (14.0-18.0); Immature Granulocytes Abs Auto 0.03 10^3/uL (0.00-0.03); Immature Granulocytes Pct Auto 0.3 % (0.0-0.5); Mean Corpuscular HGB Conc 32.6 g/dL (29.9-35.2); Mean Corpuscular Hemoglobin 29.9 pg (25.9-34.0); Mean Corpuscular Volume 91.6 fL (80.0-94.0); Mean Platelet Volume 11.3 fL (9.5-13.5); Monocytes Absolute Auto 0.7 10^3/uL (0.3-0.8); Monocytes Percent Auto 6.1 % (1.7-12.0); Neutrophils Absolute Auto 9.3 10^3/uL (1.4-6.5); Platelet Count 192 10^3/uL (150-450); Red Blood Count 4.65 10^6/uL (4.70-6.10); Red Cell Distribution Width 14.3 % (11.0-15.0); White Blood Count 11.1 10^3/uL (4.0-11.0)
[2024-07-19] MEDS: 0.9 % SODIUM CHLORIDE 1,000 ML 999 ML IV ×2 (20:05→20:54)
[2024-07-19 20:08] LABS: Alanine Aminotransferase 31 U/L (16-63); Albumin Globulin Ratio 0.7; Albumin Level 3.4 g/dL (3.4-5.0); Alkaline Phosphatase 122 U/L (46-116); Anion Gap 13.5; Aspartate Amino Transferase 54 U/L (15-37); BUN Creatinine Ratio 16.3; Bilirubin Total 1.1 mg/dL (0.2-1.0); Calcium 9.5 mg/dL (8.5-10.1); Carbon Dioxide 30.3 mmol/L (21.0-32.0); Chloride 98 mmol/L (98-107); Estimated GFR (African America >60 (>=60 mL/min/1.73m^2); Estimated GFR (Non-African Ame >60 (>=60 mL/min/1.73m^2); Ethanol <3 mg/dL; Globulin 4.6 g/dL; Glucose 89 mg/dL (74-106); Potassium 3.8 mmol/L (3.5-5.1); Salicylate <2.8 mg/dL (<=19.9); Sodium 138 mmol/L (136-145); Troponin I High Sensitivity 9.8 pg/mL (4.0-76.1)
[2024-07-19 20:09] LABS: Acetaminophen <2.0 ug/mL (10.0-30.0)
[2024-07-19 20:09] LABS: Bilirubin Urine SMALL (NEGATIVE); Blood Urine NEGATIVE (NEGATIVE); Clarity Urine CLEAR (CLEAR); Color Urine DK. ORANGE (YELLOW); Glucose Urine UA 100 mg/dL (NEGATIVE); Ketones Urine 15 mg/dL (NEGATIVE); Leukocyte Esterase Urine NEGATIVE (NEGATIVE); Nitrite Urine NEGATIVE (NEGATIVE); Protein Urine TRACE mg/dL (NEG/TRACE); pH Urine 6.5 (5.0-9.0)
[2024-07-19 20:10] LABS: Lactate/Lactic Acid 2.3 mmol/L (0.4-2.0)
[2024-07-19 20:20] LABS: Bacteria Urine TRACE #/HPF (NONE SEEN); Cast Seen? NONE SEEN #/LPF (NONE SEEN); Crystals Seen? None Seen #/HPF (None Seen); Mucus Urine NONE SEEN (NONE SEEN); RBC Urine 0-2 #/HPF (0-2); Squamous Epithelial Cell Urine NONE SEEN #/LPF (NONE/RARE); Urine Culture Indicated NO
[2024-07-19 20:26] LABS: Amphetamine Screen Urine POSITIVE (NEGATIVE); Barbiturates Screen Urine NEGATIVE (NEGATIVE); Benzodiazepines Screen Urine POSITIVE (NEGATIVE); Buprenorphine Screen Urine POSITIVE (NEGATIVE); Cannabinoid Screen Urine NEGATIVE (NEGATIVE); Cocaine Screen Urine NEGATIVE (NEGATIVE); Methadone Screen Urine NEGATIVE (NEGATIVE); Methamphetamines Screen Urine POSITIVE (NEGATIVE); Opiate Screen Urine NEGATIVE (NEGATIVE); Oxycodone Screen Urine NEGATIVE (NEGATIVE); Phencyclidine Screen Urine NEGATIVE (NEGATIVE); Tricyclic Antidepressant Urine POSITIVE (NEGATIVE)
[2024-07-19 20:34] LABS: ABG PCO2 46.7 mmHg (35.0-45.0); Allen Test POSITIVE (POSITIVE); Base Excess ABG 2.6 mmol/L (-2.0-2.0); HCO3 ABG 27.7 mmol/L (22.0-26.0); O2 Mode ROOM AIR; Oxygen Saturation ABG 93.8 %; PO2 ABG 70.4 mmHg (80.0-100.0); Puncture Site R RADIAL; pH ABG 7.382 (7.350-7.450)
[2024-07-19] MEDS: FLUMAZENIL 0.5 MG/5 ML VIAL 0.2 MG IV (21:06)
--- OUTSIDE RECORDS SUMMARY | 2024-07-19 22:51 | XMS_ITS | CCD ---
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 [address] [place] [address] [place] Albumin [Mass/volume] in Ser um or Plasma by Bromocresol green (BCG) dye binding methoOrdered By: Julio Martinez on 10-20-2023 Albumin BCG dye [Mass/Vol] 3.5 g/dL 3.5-5.7 [facility] Alkaline phosphatase [Enzyma tic activity/volume] in Serum or PlasmaOrdered By: Julio Martinez on 10-20-2023 ALP [Catalytic activity/Vol] 101 U/L 34-104 [facility] Comment on above: Order Comment: STAT APRIL CT Performed By: #### C MP #### [facility] [address] [place] [address] [place] Aspartate aminotransferase [ Enzymatic activity/volume] in Serum or PlasmaOrdered By: Julio Martinez on 10-20-2023 AST [Catalytic activity/Vol] 46 U/L High 13-39 [facility] Comment on above: Order Comment: STAT APRIL CT Performed By: #### C MP #### [address] Automated basophil %Ordered By: Rayd Al-Iraisraheladio on 10-20-2023 Basophils/100 WBC (Bld) 0.6 % . [facility] Comment on above: Performed By: #### C EA, SCAN CBC #### [address] Automated basophil countOrde red By: Mhd Al-Marraheladio on 10-20-2023 Basophils (Bld) [#/Vol] 0.1 10*3/uL 0.0-0.2 [facility] Comment on above: Performed By: #### C EA, SCAN CBC #### [address] Automated blood monocyte cou ntOrdered By: Rayd Al-Marraheladio on 10-20-2023 Monocytes (Bld) [#/Vol] 0.7 10*3/uL 0.0-0.8 [facility] Comment on above: Performed By: #### C EA, SCAN CBC #### [address] Automated eosinophil %Ordere d By: Rayd Al-Edith on 10-20-2023 Eosinophils/100 WBC (Bld) 1.4 % . [facility] Comment on above: Performed By: #### C EA, SCAN CBC #### [address] Automated eosinophil countOr dered By: d Al-Marraheladio on 10-20-2023 Eosinophils (Bld) [#/Vol] 0.1 10*3/uL 0.0-0.45 [facility] Comment on above: Performed By: #### C EA, SCAN CBC #### [address] Automated monocyte %Ordered By: Mhd Al-Marraheladio on 10-20-2023 Monocytes/100 WBC (Bld) 6.7 % . [facility] Comment on above: Performed By: #### C EA, SCAN CBC #### [address] Automated neutrophil %Ordere d By: Julio Martinez on 10-20-2023 Neutrophils/100 WBC (Bld) 71.8 % . [facility] Comment on above: Performed By: #### C EA, SCAN CBC #### [address] Bilirubin.total [Mass/volume ] in Serum or PlasmaOrdered By: Julio Martinez on 10-20-2023 Bilirubin [Mass/Vol] 0.9 mg/dL 0.3-1.0 [facility] Comment on above: Order Comment: STAT APRIL CT Performed By: #### C MP #### [address] abdomen pelvis w conon CT abdomen pelvis w con [facility] [place] [address] [place] [address] CT Scan Report Signed Patient: Berenice Leary MR#: [id number] 42 : 1965 Acct:[id number] Age/Sex: 58 / M ADM Date: 10/20/23 Loc: Room: Type: [facility] Attending Dr: Julio Martinez MD Copies to: Julio Martinez MD Ordering Provider: Julio Martinez MD Date of Service: 10/20/23 CT/CT chest w con: C15.9 - Malignant neoplasm of esophagus, unspecified ([id number]) CT/CT abdomen pelvis w con: C15.9 - [...] Lockwood Jr., DHarrietOHarriet10/20/2023 2:47 PM Dictation Location: [place] [address] Transcribed By: [facility] 10/20/23 1447 Dictated By: Nash Lockwood Jr, DO 10/20/23 1441 Signed By: 10/20/23 1447 Normal [facility] Calcium [Mass/volume] in Ser um or PlasmaOrdered By: Julio Martinez on 10-20-2023 Calcium [Mass/Vol] 9.1 mg/dL 8.6-10.3 [facility] Comment on above: Order Comment: STAT APRIL CT Performed By: #### C MP #### [facility] [address] Carbon dioxide, total [Moles /volume] in Serum or PlasmaOrdered By: Julio Sharma on 10-20-2023 CO2 [Moles/Vol] 29.1 mmol/L 21.0-31.[address] [facility] Comment on above: Order Comment: STAT APRIL CT Performed By: #### C MP #### [facility] [address] [place] [address] Chloride [Moles/volume] in S eliza or PlasmaOrdered By: Julio Martinez on 10-20-2023 Chloride [Moles/Vol] 101 mmol/L 98-107 [facility] Comment on above: Order Comment: STAT APRIL CT Performed By: #### C MP #### [address] Comprehensive Metabolic Pane дмитрий 10-20-2023 Albumin [Mass/Vol] 3.5 g/dL Normal 3.5-5.7 [facility] Comment on above: Order Comment: STAT APRIL CT Performed By: #### C MP #### [place] [address] [place] Creatinine Clr Calc Pharmacy 98.34 Normal [facility] Comment on above: Order Comment: STAT APRIL CT Result Comment: PERF ORMED BY: [place] [address] PATHOLOGIST NATUROPATHIC ONCOLOGY PROVIDER NIKITA URIBE M.D. Performed By: #### C MP #### [address] GFR/1.73 sq M.predicted MDRD (S/P/Bld) [Vol rate/Area] mL/min/{1.73_m2} Normal [facility] Comment on above: Order Comment: STAT APRIL CT Performed By: #### C MP #### [place] [address] [place] Creatinine [Mass/volume] in Serum or PlasmaOrdered By: Julio Martinez on 10-20-2023 Creatinine [Mass/Vol] 0.82 mg/dL 0.70-1.30 [facility] Comment on above: Order Comment: STAT APRIL CT Performed By: #### C MP #### [address] Erythrocyte distribution wid th [Ratio] by Automated countOrdered By: Julio Sharma on 10-20-2023 Erythrocyte distribution width (RBC) [Ratio] 15.2 % High 12.0-14.8 [facility] Comment on above: Performed By: #### C EA, SCAN CBC #### [facility] [address] Erythrocytes [#/volume] in B lood by Automated countOrdered By: Julio Martinez on 10-20-2023 RBC (Bld) [#/Vol] 4.52 10*6/uL 3.90-5.60 [facility] Comment on above: Performed By: #### C EA, SCAN CBC #### [place] [address] [place] Glucose [Mass/volume] in Ser um or PlasmaOrdered By: Julio Martinez on 10-20-2023 Glucose [Mass/Vol] 124 mg/dL High 70-100 [facility] Comment on above: ADA recommended refe rence rangeRandom Glucose Reference Range is dependent on time and content of last meal. Glucose of more than 200 mg/dL in a nonstressed, ambulatory subject supports the diagnosis of Diabetes Mellitus. Order Comment: STAT APRIL CT Result Comment: [place] om Glucose Reference Range is dependent on time and content of last meal. Glucose of more than 200 mg/dL in a nonstressed, ambulatory subject supports the diagnosis of Diabetes Mellitus. ADA recommended reference range Performed By: #### C MP #### [address] Hematocrit [Volume Fraction] of Blood by Automated countOrdered By: Julio Sharma on 10-20-2023 Hematocrit (Bld) [Volume fraction] 39.9 % 38.8-50.0 [facility] Comment on above: Performed By: #### C EA, SCAN CBC #### [place] [id number] [place] Hemoglobin [Mass/volume] in BloodOrdered By: franki Brantley-Edith on 10-20-2023 Hemoglobin (Bld) [Mass/Vol] 13.3 g/dL 13.0-17.0 [facility] Comment on above: Performed By: #### C EA, SCAN CBC #### [address] Leukocytes [#/volume] correc emmett for nucleated erythrocytes in Blood by Automated counOrdered By: franki Brantley-Edith on 10-20-2023 WBC corrected for nucl RBC Auto (Bld) [#/Vol] 9.7 10*3/uL 4.1-10.5 [facility] Leukocytes [#/volume] in Blo od by Automated countOrdered By: franki Brantley-Edith on 10-20-2023 WBC (Bld) [#/Vol] 9.7 10*3/uL 4.1-10.5 [facility] Comment on above: Performed By: #### C EA, SCAN CBC #### [address] Lymphocytes [#/volume] in Bl ood by Automated countOrdered By: franki Martinez on 10-20-2023 Lymphocytes (Bld) [#/Vol] 1.9 10*3/uL 1.00-4.8 [facility] Comment on above: Performed By: #### C EA, SCAN CBC #### [place] [address] [place] Lymphocytes/100 leukocytes i n Blood by Automated countOrdered By: franki Brantley-Edith on 10-20-2023 Lymphocytes/100 WBC (Bld) 19.5 % . [facility] Comment on above: Performed By: #### C EA, SCAN CBC #### [address] MCH [Entitic mass] by Automa emmett countOrdered By: franki Brantley-Edith on 10-20-2023 MCH (RBC) [Entitic mass] 29.4 pg 27.5-35.2 [facility] Comment on above: Performed By: #### C EA, SCAN CBC #### [facility] [address] MCHC Auto (RBC) [Mass/Vol]Or dered By: Julio Martinez on 10-20-2023 MCHC (RBC) [Mass/Vol] 33.3 g/dL 32.5-35.6 [facility] MCV [Entitic volume] by Auto mated countOrdered By: Julio Martinez on 10-20-2023 MCV (RBC) [Entitic vol] 88.3 fL 83.5-101 [facility] Comment on above: Performed By: #### C EA, SCAN CBC #### [facility] [address] [place] [address] Neutrophils [#/volume] in Bl ood by Automated countOrdered By: Julio Martinez on 10-20-2023 Neutrophils (Bld) [#/Vol] 7.0 10*3/uL 1.8-7.7 [facility] Comment on above: Performed By: #### C EA, SCAN CBC #### [facility] [address] [place] [address] No Panel InformationOrdered By: Julio Martinez on 10-20-2023 Estimated GFR (CKD-EPI) > 60.0 mL/Min [facility] Creatinine Clearance (Chem 98.34 [facility] Nucleated erythrocytes [Pres ence] in Blood by Automated countOrdered By: Julio Martinez on 10-20-2023 Nucleated RBC Auto Ql (Bld) 0.1 /100{WBC} 0-0.5 [facility] Platelet adequacy [Presence] in Blood by Light microscopyOrdered By: Julio Sharma on 10-20-2023 Platelets LM Ql (Bld) Decreased Normal [facility] Platelet mean volume [Entiti c volume] in Blood by Automated countOrdered By: Julio Martinez on 10-20-2023 Platelet mean volume (Bld) [Entitic vol] 10.1 fL 6.6-10.1 [facility] Comment on above: Performed By: #### C EA, SCAN CBC #### [facility] [address] Platelet morphology finding [Identifier] in BloodOrdered By: Julio Martinez on 10-20-2023 Platelet morphology finding Nom (Bld) N/A [facility] Platelets Large [Presence] i n Blood by Light microscopyOrdered By: Julio Sharma on 10-20-2023 Platelets Large LM Ql (Bld) Slight [facility] Platelets [#/volume] in Bloo d by Automated countOrdered By: franki Martinez on 10-20-2023 Platelets (Bld) [#/Vol] 117 10*3/uL Low 150-450 [facility] Comment on above: Performed By: #### C EA, SCAN CBC #### [address] Potassium [Moles/volume] in Serum or PlasmaOrdered By: Julio Martinez on 10-20-2023 Potassium [Moles/Vol] 3.8 mmol/L 3.5-5.1 [facility] Comment on above: Order Comment: STAT APRIL CT Performed By: #### C MP #### [facility] [address] [place] [address] Protein [Mass/volume] in Ser um or PlasmaOrdered By: franki Martinez on 10-20-2023 Protein [Mass/Vol] 7.2 g/dL 6.4-8.9 [facility] Comment on above: Order Comment: STAT APRIL CT Performed By: #### C MP #### [facility] [address] RBC morphologyOrdered By: Ray Martinez on 10-20-2023 RBC morphology finding Nom (d) Normal Normal [facility] Comment on above: Performed By: #### C EA, SCAN CBC #### [facility] [address] [place] [address] [place] Scan and CBCon 10-20-2023 Large Platelets Slight Normal [facility] Comment on above: Result Comment: PERF ORMED BY: [place] [address] PATHOLOGIST NATUROPATHIC ONCOLOGY PROVIDER NIKITA URIBE M.D. Performed By: #### C EA, SCAN CBC #### [address] Mean Corpuscular HGB Conc 33.3 g/dL Normal 32.5-35.6 [facility] Comment on above: Performed By: #### C EA, SCAN CBC #### [address] NRBC% 0.1 /100{WBC} Normal 0-0.5 [facility] Comment on above: Performed By: #### C EA, SCAN CBC #### [address] Platelet Estimate Decreased Normal Normal [facility] Comment on above: Performed By: #### C EA, SCAN CBC #### [address] Serum globulin measurement b y calculation (mass/volume)Ordered By: Julio Sharma on 10-20-2023 Globulin (S) [Mass/Vol] 3.7 g/dL [facility] Comment on above: Order Comment: STAT APRIL CT Performed By: #### C MP #### [address] Serum or plasma albumin/glob ulin mass ratioOrdered By: Julio Martinez on 10-20-2023 Albumin/Globulin [Mass ratio] 0.9 {ratio} [facility] Comment on above: Order Comment: STAT APRIL CT Performed By: #### C MP #### [address] Serum or plasma anion gap de terminationOrdered By: Julio Martinez on 10-20-2023 Anion gap [Moles/Vol] 8.7 mmol/L 6.0-15.0 [facility] Comment on above: Order Comment: STAT APRIL CT Performed By: #### C MP #### [address] [place] [address] [facility] Serum or plasma carcinoembry onic antigen measurement (mass/volume)Ordered By: Julio Martinez on 10-20-2023 Carcinoembryonic Ag [Mass/Vol] 2.2 ng/mL 0.0-3.0 [facility] Comment on above: Serial tumor marker results determined by assays using different manufacturers or methods may not be comparable.[facility] market risk manager and method:ALEXI UNICEL DXI, 2 SITE IMMUNOENZYMATIC SANDWICH ASSAY. Sodium [Moles/volume] in Ser um or PlasmaOrdered By: Julio Martinez on 10-20-2023 Sodium [Moles/Vol] 135 mmol/L Low 136-145 [facility] Comment on above: Order Comment: STAT APRIL CT Performed By: #### C MP #### [facility] [address] [place], [place] [id number] [facility] Urea nitrogen [Mass/volume] in Serum or PlasmaOrdered By: Julio Martinez on 10-20-2023 Urea nitrogen [Mass/Vol] 13 mg/dL 7-25 [facility] Comment on above: Order Comment: STAT APRIL CT Performed By: #### C MP #### [facility] [address] [place] [address] CT ABDOMEN AND PELVIS W IV C ONTRASTon 11-13-2021 CT ABDOMEN AND PELVIS W IV CONTRAST [facility] Department of Radiology [address] [place] [address] ======== Patient Name: BERENICE BLANDON : 1965 Sex: M Age: Race: White Pt. Location: Patient Status: D Ordered Date: 01/25/2021 10:05:00 AM Completed Date: 11/13/2021 11:53 AM Requesting Provider: TIFFANIE MILES Attending Provider: TIFFANIE MILES Report Copy To: LEATHA HUSAIN Signs & Symptoms: C15.5 Malignant neoplasm of lower third of esophagus I10 History: [place] Comments: October 2021 Exam: CT ABDOMEN AND [...] suggested. Electronically signed: Loli Real. Transcribed by: [email or web address], User Resident: Electronically Signed by: LOLI FARHAN @ 11/14/2021 01:37 PM Normal [facility] Comment on above: Order Comment: October 2021 CT CHEST W CONTRASTon 2021 CT CHEST W CONTRAST [facility] Department of Radiology [address] [place] [id number] ======== Patient Name: BERENICE BLANDON : 1965 Sex: M Age: Race: White Pt. Location: 29 Patient Status: D Ordered Date: 01/25/2021 10:05:00 AM Completed Date: 11/13/2021 11:53 AM Requesting Provider: TIFFANIE MILES Attending Provider: TIFFANIE MILES Report Copy To: LEATHA HUSAIN Signs & Symptoms: C15.5 Malignant neoplasm of lower third of esophagus I10 History: [place] Comments: October 2021 Exam: CT CHEST W [...] chest. Electronically signed: Loli Real. Transcribed by: [email or web address], User Resident: Electronically Signed by: LOLI REAL @ 11/14/2021 01:31 PM Normal [facility] Comment on above: Order Comment: October 2021 ACETAMINOPHENon 03-15-2020 Acetaminophen [Mass/Vol] <10.0 Critically low 10.1-30.0 [facility] Comment on above: Performed By: #### E TH, SALYC, ACET #### [facility] [address] [place], [place] [address] Sabrina Lin CARDIAC ROGER ADMITon 020 CK [Catalytic activity/Vol] 142 U/L Normal 55-170 [facility] Comment on above: Performed By: #### B MP, LIVER, CMADM #### [facility] [address] [place], [place] [address] Sabrina Lin CK.MB [Mass/Vol] 1.39 ng/mL Normal <=2.37 [facility] Comment on above: Performed By: #### B MP, LIVER, CMADM #### [facility] [address] [place], [place] [address] Sabrina Lin INR Coag (Bld) [Relative time] SEE BELOW Normal [facility] Comment on above: Result Comment: <0.0 34 ng/ml NEGATIVE 0.034-0.119 INDETERMINATE 0.120 AMI CUT OFF Performed By: #### B MP, LIVER, CMADM #### [facility] [address] [place] [address] Sabrina Delia MOISÉS 186.0 ng/mL Critically high <=121.0 [facility] Comment on above: Performed By: #### B MP, LIVER, CMADM #### [facility] [address] [place] [address] Sabrina Delia TROP 0.018 ng/mL Normal <=0.034 [facility] Comment on above: Performed By: #### B MP, LIVER, CMADM #### [facility] [address] [place] [address] Sabrina Delia CBC W MANUAL DIFFon 03-15-20 20 ATYPICAL LYMPH # Normal [facility] Comment on above: Performed By: #### C TISH #### [facility] [address] [place] [address] Sabrina Delia ATYPICAL LYMPH % Normal [facility] Comment on above: Performed By: #### C TISH #### [facility] [address] [place] [address] Sabrina Delia BAND # 0.0 103/ul Normal 0.0-0.3 [facility] Comment on above: Performed By: #### C TISH #### [facility] [address] [place] [address] Sabrina Delia BAND % 0 % Normal 0-5 [facility] Comment on above: Performed By: #### C TISH #### [facility] [address] [place] [address] Sabrina Delia BASOM # 0.00 103/ul Normal 0.00-0.10 [facility] Comment on above: Performed By: #### C TISH #### [facility] [address] [place] [address] Sabrina Delia BASOM % 0.0 % Critically low 0.2-2.0 [facility] Comment on above: Performed By: #### C TISH #### [facility] [address] [place] [address] Sabrina Delia BLAST # Normal [facility] Comment on above: Performed By: #### C TISH #### [facility] [address] [place] [address] Sabrina Delia BLAST % Normal [facility] Comment on above: Performed By: #### Winnie WINSTON #### [facility] [address] [place] [address] Sabrina Delia CORRECTED WBC Normal 4.0-11.0 [facility] Comment on above: Performed By: #### C TISH #### [facility] [address] [place] [address] Sabrina Delia Eosinophils (Bld) [#/Vol] 0.00 103/ul Normal 0.00-0.70 [facility] Comment on above: Performed By: #### Winnie WINSTON #### [facility] [address] [place] [address] Sabrina Delia Eosinophils/100 WBC (Bld) 0.0 % Critically low 0.9-7.0 [facility] Comment on above: Performed By: #### Winnie WINSTON #### [facility] [address] [place] [address] Sabrina Delia Erythrocyte distribution width (RBC) [Ratio] 14.2 % Normal 11.0-15.0 [facility] Comment on above: Performed By: #### Winnie WINSTON #### [facility] [address] [place] [address] Sabrina Delia Hematocrit (Bld) [Volume fraction] 45.8 % Normal 42.0-54.0 [facility] Comment on above: Performed By: #### Winnie WINSTON #### [facility] [address] [place] [address] Sabrina Delia Hemoglobin (Bld) [Mass/Vol] 14.9 g/dl Normal 14.0-18.0 [facility] Comment on above: Performed By: #### Winnie WINSTON #### [facility] [address] [place] [address] Sabrina Delia LYMPHM # 0.59 103/ul Critically low 1.20-3.[address] [facility] Comment on above: Performed By: #### C TISH #### [facility] [address] [place] [address] Sabrina Delia LYMPHM% 3.0 % Critically low 20.5-60.0 [facility] Comment on above: Performed By: #### C TISH #### [facility] [address] [place] [address] Sabrinajenn Mulleren MCH (RBC) [Entitic mass] 29.0 pg Normal 25.9-34.0 [facility] Comment on above: Performed By: #### Winnie WINSTON #### [facility] [address] [place] [address] Sabrinajenn Lin MCHC (RBC) [Mass/Vol] 32.5 g/dl Normal 29.9-35.2 [facility] Comment on above: Performed By: #### Winnie WINSTON #### [facility] [address] [place] [address] Sabrina Lin MCV (RBC) [Entitic vol] 89.1 fL Normal 80.0-94.0 [facility] Comment on above: Performed By: #### Winnie WINSTON #### [facility] [address] [place] [address] Sabrina Delia METAMYELOCYTE # Normal [facility] Comment on above: Performed By: #### Winnie WINSTON #### [facility] [address] [place] [address] Sabrina Delia METAMYELOCYTE % Normal [facility] Comment on above: Performed By: #### Winnie WINSTON #### [facility] [address] [place], [place] [id number] Sabrina Delia MONOM# 1.19 103/ul Critically high 0.30-0.80 [facility] Comment on above: Performed By: #### Winnie WINSTON #### [facility] [address] [place] [address] Sabrina Delia MONOM% 6.0 % Normal 1.7-12.0 [facility] Comment on above: Performed By: #### Winnie WINSTON #### [facility] [address] [place], [place] [id number] Sabrinajenn Mulleren MYELOCYTE # Normal [facility] Comment on above: Performed By: #### iWnnie WINSTON #### [facility] [address] [place], [place] [id number] Sabrinajenn Mulleren MYELOCYTE % Normal [facility] Comment on above: Performed By: #### Winnie WINSTON #### [facility] [address] [place], [place] [id number] Sabrina Delia NRBC Normal [facility] Comment on above: Performed By: #### Winnie WINSTON #### [facility] [address] [place], [place] [id number] Sabrinajenn Lin Platelet mean volume (Bld) [Entitic vol] 12.3 fL Normal 9.5-13.5 [facility] Comment on above: Performed By: #### Winnie WINSTON #### [facility] [address] [place] [address] Sabrina Delia Platelets (Bld) [#/Vol] 241 103/ul Normal 150-450 [facility] Comment on above: Performed By: #### Winnie WINSTON #### [facility] [address] [place] [address] Sabrinajenn Lin RBC (Bld) [#/Vol] 5.14 106/ul Normal 4.70-6.10 [facility] Comment on above: Performed By: #### Winnie WINSTON #### [facility] [address] [place], [place] [id number] Sabrina Delia SEG # 18.02 103/ul Critically high 1.40-6.50 [facility] Comment on above: Performed By: #### Winnie WINSTON #### [facility] [address] [place], [place] [id number] Sabrina Delia Segmented neutrophils/100 WBC (Bld) 91.0 % Critically high 43.0-75.0 [facility] Comment on above: Performed By: #### Winnie WINSTON #### [facility] [address] [place], [place] [id number] Sabrina Delia WBC (Bld) [#/Vol] 19.8 103/ul Critically high 4.0-11.0 [facility] Comment on above: Performed By: #### C BCMAN #### [facility] [address] [place], [place] [id number] Sabrina Delia ETHANOL (BLD ALC)on 03-15-20 20 Ethanol [Mass/Vol] NOTE: 80 mg/dl is th e legal limit for a blood alcohol level Normal [facility] Comment on above: Performed By: #### E TH, VERONICA, ACET #### [facility] [address] [place], [place] [id number] Sabrina Delia Ethanol [Mass/Vol] mg/dL Normal [facility] Comment on above: Performed By: #### E TH, VERONICA, ACET #### [facility] [address] [place] [address] Sabrina Delia LACTATE/LACTIC ACIDon 2019 Lactate [Moles/Vol] 2.0 mmol/L Normal 0.7-2.0 [facility] Comment on above: Performed By: #### L ACT #### [facility] [address] [place], [place] [id number] Sabrina Delia LIVER PROFILEon 03-15-2020 Albumin [Mass/Vol] 4.0 g/dL Normal 3.5-5.0 [facility] Comment on above: Performed By: #### B MP, LIVER, CMADM #### [facility] [address] [place], [place] [id number] Sabrina Delia Albumin/Globulin [Mass ratio] 1.0 {ratio} Normal [facility] Comment on above: Performed By: #### B MP, LIVER, CMADM #### [facility] [address] [place], [place] [id number] Sabrina Delia ALP [Catalytic activity/Vol] 89 U/L Normal 38-126 [facility] Comment on above: Performed By: #### B MP, LIVER, CMADM #### [facility] [address] [place], [place] [id number] Sabrina Delia ALT [Catalytic activity/Vol] 18 U/L Critically low 21-72 [facility] Comment on above: Performed By: #### B MP, LIVER, CMADM #### [facility] [address] [address] Sabrina Delia AST [Catalytic activity/Vol] 18 U/L Normal 17-59 [facility] Comment on above: Performed By: #### B MP, LIVER, CMADM #### [facility] [address] [place], [place] [id number] Sabrina Delia BILI, CONJUGATED 0.1 mg/dL Normal 0.0-0.3 [facility] Comment on above: Performed By: #### B MP, LIVER, CMADM #### [facility] [address] [place] [address] Sabrina Delia Bilirubin Ql (U) 0.3 mg/dL Normal 0.2-1.3 [facility] Comment on above: Performed By: #### B MP, LIVER, CMADM #### [facility] [address] [place] [address] Sabrina Delia Globulin (S) [Mass/Vol] 4.0 g/dL Normal [facility] Comment on above: Performed By: #### B MP, LIVER, CMADM #### [facility] [address] [place] [address] Sabrina Delia Protein [Mass/Vol] 8.0 g/dL Normal 6.1-8.2 [facility] Comment on above: Performed By: #### B MP, LIVER, CMADM #### [facility] [address] [place], [place] [id number] Sabrina Delia PROF CHEM 8 (BAS METB)on Anion gap [Moles/Vol] 13.6 mmol/L Normal [facility] Comment on above: Performed By: #### B MP, LIVER, CMADM #### [facility] [address] [place] [address] Sabrina Delia Calcium [Mass/Vol] 9.0 mg/dL Normal 8.4-10.2 [facility] Comment on above: Performed By: #### B MP, LIVER, CMADM #### [facility] [address] [place], [place] [address] Sabrina Delia Chloride [Moles/Vol] 101 mmol/L Normal 98-107 [facility] Comment on above: Performed By: #### B MP, LIVER, CMADM #### [facility] [address] [place], [place] [address] Sabrina Delia CO2 [Moles/Vol] 28.0 mmol/L Normal 22.0-30.0 [facility] Comment on above: Performed By: #### B MP, LIVER, CMADM #### [facility] [address] [id number] Sabrina Delia Creatinine [Mass/Vol] 1.67 mg/dL Critically high 0.66-1.25 [facility] Comment on above: Performed By: #### B MP, LIVER, CMADM #### [facility] [address] [address] Sabrina Delia EGFR-AF [place]ING[place]OREAN 52 mL/min/1.73m2 Critically low >=60 [facility] Comment on above: Performed By: #### B MP, LIVER, CMADM #### [facility] [address] [id number] Sabrina Delia EGFR-NON AF [place] 43 mL/min/1.73m2 Critically low >=60 [facility] Comment on above: Performed By: #### B MP, LIVER, CMADM #### [facility] [address] [id number] Sabrina Delia Glucose [Mass/Vol] 212 mg/dL Critically high 74-106 [facility] Comment on above: Performed By: #### B MP, LIVER, CMADM #### [facility] [address] [id number] Sabrina Delia Potassium [Moles/Vol] 3.6 mmol/L Normal 3.4-5.0 [facility] Comment on above: Performed By: #### B MP, LIVER, CMADM #### [facility] [address] [id number] Sabrina Delia Sodium [Moles/Vol] 139 mmol/L Normal 137-145 [facility] Comment on above: Performed By: #### B MP, LIVER, CMADM #### [facility] [address] [place], [place] [address] Sabrinajenn Lin Urea nitrogen [Mass/Vol] 30.0 mg/dL Critically high 9.0-20.0 [facility] Comment on above: Performed By: #### B MP, LIVER, CMADM #### [facility] [address] [id number] Sabrinajenn Lin Urea nitrogen/Creatinine [Mass ratio] 18.0 mg/mg Normal [facility] Comment on above: Performed By: #### B MP, LIVER, CMADM #### [facility] [address] [id number] Sabrina Lin SALICYLATEon 03-15-2020 SALICYLATE 7.3 mg/dL Normal <=20.0 [facility] Comment on above: Performed By: #### E TH, SALYC, ACET #### [facility] [address] [id number] Sabrina Delia XR CHEST 1 Von 03-15-2020 [...] by: SULY LOPEZ Date: 2020-03-15 21:09 Normal [facility] Cult,Bloodon 01-17-2017 Cult,Blood Specimen Description .BLOOD Special Requests RIGHT HAND 2ML Culture NO GROWTH 6 DAYS Report Status FINAL 01/17/2017 Normal [facility] Comment on above: Performed By: #### B C ####[facility] [id number] [place] [address] Cult,Blood Specimen Description .BLOOD Special Requests L FOREARM 20 ML Culture NO GROWTH 6 DAYS Report Status FINAL 01/17/2017 Normal [facility] Comment on above: Performed By: #### B C ####[address] [address] CBCon 01-13-2017 Erythrocyte distribution width Auto Ratio (RBC) 15.5 % High 12.5-15.4 [facility] Comment on above: Performed By: #### C BC, ALCB, CP, SALI, ACET, LESLEY, TRIC, TSHX, FT4 ####[address] [address] Erythrocytes (RBC) 3.89 10*6/uL Low 4.5-5.9 [facility] Comment on above: Performed By: #### C BC, ALCB, CP, SALI, ACET, LESLEY, TRIC, TSHX, FT4 ####[address] [address] Hematocrit (HCT) 33.1 % Low 41-53 [facility] Comment on above: Performed By: #### C BC, ALCB, CP, SALI, ACET, LESLEY, TRIC, TSHX, FT4 ####[address] [address] Hemoglobin mass conc (Bld) 11.2 g/dL Low 13.5-17.5 [facility] Comment on above: Performed By: #### C BC, ALCB, CP, SALI, ACET, LESLEY, TRIC, TSHX, FT4 ####[address] [address] MCH 28.7 pg Normal 26-34 [facility] Comment on above: Performed By: #### C BC, ALCB, CP, SALI, ACET, LESLEY, TRIC, TSHX, FT4 ####[address] [address] MCHC mass conc (RBC) 33.7 g/dL Normal 31-37 [facility] Comment on above: Performed By: #### C BC, ALCB, CP, SALI, ACET, LESLEY, TRIC, TSHX, FT4 ####[address] [address] MCV 85.1 fL Normal 80-100 [facility] Comment on above: Performed By: #### C BC, ALCB, CP, SALI, ACET, LESLEY, TRIC, TSHX, FT4 ####[address] [address] Platelet mean volume (PMV) 10.9 fL Normal 6.0-12.0 [facility] Comment on above: Result Comment: [address] [address] Performed By: #### C BC, ALCB, CP, SALI, ACET, LESLEY, TRIC, TSHX, FT4 ####[address] [address] Platelets 142 10*3/uL Normal 140-450 [facility] Comment on above: Performed By: #### C BC, ALCB, CP, SALI, ACET, LESLEY, TRIC, TSHX, FT4 ####[address] [address] WBC (Leukocytes) 14.9 10*3/uL High 3.5-11.0 [facility] Comment on above: Performed By: #### C BC, ALCB, CP, SALI, ACET, LESLEY, TRIC, TSHX, FT4 ####[address] [address] Discharge Summaryon 01-14-20 17 HIM IP Note 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 Additional eGFR calculator available at:http://www.[employer]ascentric.com/multiple_crcl_2012.htm[address] [address] Performed By: #### C BC, ALCB, CP, SALI, ACET, LESLEY, TRIC, TSHX, FT4 ####[address] [address] Anion gap 15 mmol/L Normal 9-17 [facility] Comment on above: Performed By: #### C BC, ALCB, CP, SALI, ACET, LESLEY, TRIC, TSHX, FT4 ####[address] [address] Calcium 8.6 mg/dL Normal 8.6-10.4 [facility] Comment on above: Performed By: #### C BC, ALCB, CP, SALI, ACET, LESLEY, TRIC, TSHX, FT4 ####[address] [address] Chloride 103 mmol/L Normal 98-107 [facility] Comment on above: Performed By: #### C BC, ALCB, CP, SALI, ACET, LESLEY, TRIC, TSHX, FT4 ####[address] [address] CO2 23 mmol/L Normal 20-31 [facility] Comment on above: Performed By: #### C BC, ALCB, CP, SALI, ACET, LESLEY, TRIC, TSHX, FT4 ####[address] [address] Creatinine 0.55 mg/dL Low 0.70-1.20 [facility] Comment on above: Performed By: #### C BC, ALCB, CP, SALI, ACET, LESLEY, TRIC, TSHX, FT4 ####[address] [place] [address] eGFR (non-black) mL/min/{1.73_m2} Normal >60 [facility] Comment on above: Performed By: #### C BC, ALCB, CP, SALI, ACET, LESLEY, TRIC, TSHX, FT4 ####[address] [address] Glucose mass conc 106 mg/dL High 70-99 [facility] Comment on above: Performed By: #### C BC, ALCB, CP, SALI, ACET, LESLEY, TRIC, TSHX, FT4 ####[address] [address] Potassium molar conc 4.0 mmol/L Normal 3.7-5.3 [facility] Comment on above: Performed By: #### C BC, ALCB, CP, SALI, ACET, LESLEY, TRIC, TSHX, FT4 ####[address] [address] Sodium 141 mmol/L Normal 135-144 [facility] Comment on above: Performed By: #### C BC, ALCB, CP, SALI, ACET, LESLEY, TRIC, TSHX, FT4 ####[address] [address] Urea nitrogen 7 mg/dL Normal 6-20 [facility] Comment on above: Performed By: #### C BC, ALCB, CP, SALI, ACET, LESLEY, TRIC, TSHX, FT4 ####[address] [address] BUN/CRE Ratio NOT REPORTED Normal -20 [facility] Comment on above: Performed By: #### C BC, ALCB, CP, SALI, ACET, LESLEY, TRIC, TSHX, FT4 ####[address] [address] Staging: NOT REPORTED Normal [facility] Comment on above: Performed By: #### C BC, ALCB, CP, SALI, ACET, LESLEY, TRIC, TSHX, FT4 ####[address] [address] CBCon 01-12-2017 Erythrocyte distribution width Auto Ratio (RBC) 16.4 % High 12.5-15.4 [facility] Comment on above: Performed By: #### C BC, ALCB, CP, SALI, ACET, LESLEY, TRIC, TSHX, FT4 ####[address] [address] Erythrocytes (RBC) 4.32 10*6/uL Low 4.5-5.9 [facility] Comment on above: Performed By: #### C BC, ALCB, CP, SALI, ACET, LESLEY, TRIC, TSHX, FT4 ####[address] [address] Hematocrit (HCT) 37.2 % Low 41-53 [facility] Comment on above: Performed By: #### C BC, ALCB, CP, SALI, ACET, LESLEY, TRIC, TSHX, FT4 ####[address] [address] Hemoglobin mass conc (Bld) 12.3 g/dL Low 13.5-17.5 [facility] Comment on above: Performed By: #### C BC, ALCB, CP, SALI, ACET, LESLEY, TRIC, TSHX, FT4 ####[address] [address] MCH 28.4 pg Normal 26-34 [facility] Comment on above: Performed By: #### C BC, ALCB, CP, SALI, ACET, LESLEY, TRIC, TSHX, FT4 ####[address] [address] [facility] mass conc (RBC) 33.0 g/dL Normal 31-37 [facility] Comment on above: Performed By: #### C BC, ALCB, CP, SALI, ACET, LESLEY, TRIC, TSHX, FT4 ####[address] [address] MCV 86.0 fL Normal 80-100 [facility] Comment on above: Performed By: #### C BC, ALCB, CP, SALI, ACET, LESLEY, TRIC, TSHX, FT4 ####[address] [address] Platelet mean volume (PMV) 9.7 fL Normal 6.0-12.0 [facility] Comment on above: Result Comment: [address] [place] [address] Performed By: #### C BC, ALCB, CP, SALI, ACET, LESLEY, TRIC, TSHX, FT4 ####[address] [address] Platelets 141 10*3/uL Normal 140-450 [facility] Comment on above: Performed By: #### C BC, ALCB, CP, SALI, ACET, LESLEY, TRIC, TSHX, FT4 ####[address] [address] WBC (Leukocytes) 13.6 10*3/uL High 3.5-11.0 [facility] Comment on above: Performed By: #### C BC, ALCB, CP, SALI, ACET, LESLEY, TRIC, TSHX, FT4 ####[address] [address] Flu A/B Ag Detectionon 01-12 Flu A/B Ag Detection Specimen Descriptio n .NASOPHARYNGEAL SWABSpecial Requests NOT REPORTEDDirect Exam PRESUMPTIVE NEGATIVE for Influenza A + B antigens. PCR testing to confirm this result is available upon request. Specimen will be saved in the laboratory for 7 days. Please call [phone] if PCR testing is indicated. Report Status FINAL 01/12/2017 Normal [facility] Comment on above: Performed By: #### C BC, ALCB, CP, SALI, ACET, LESLEY, TRIC, TSHX, FT4 ####[address] [address] Hemoglobin A1Con 01-12-2017 Glucose mass conc 120 mg/dL Normal [facility] Comment on above: Result Comment: The ADA and AACC recommend providing the estimated average glucose result to permit better patient understanding of their HBA1c result.[address] [address] Performed By: #### C BC, ALCB, CP, SALI, ACET, LESLEY, TRIC, TSHX, FT4 ####[address] [address] Hemoglobin A1c/Hemoglobin.total mass fraction (Bld) 5.8 % Normal 4.0-6.0 [facility] Comment on above: Performed By: #### C BC, ALCB, CP, SALI, ACET, LESLEY, TRIC, TSHX, FT4 ####[address] [address] Lactic Acid,Whole Blon 01-12 Lactic Acid,Whole Bl 0.8 mmol/L Normal 0.7-2.1 [facility] Comment on above: Result Comment: [facility] [employer] [address] [place] [address] Performed By: #### C BC, ALCB, CP, SALI, ACET, LESLEY, TRIC, TSHX, FT4 ####[address] [address] Lactic Acid,Whole Bl 1.1 mmol/L Normal 0.7-2.1 [facility] Comment on above: Result Comment: [facility] [employer] [address] [place] [address] Performed By: #### C BC, ALCB, CP, SALI, ACET, LESLEY, TRIC, TSHX, FT4 ####[address] [address] Lactic Acid,Whole Bl 1.1 mmol/L Normal 0.7-2.1 [facility] Comment on above: Result Comment: [address] [address] Performed By: #### C BC, ALCB, CP, SALI, ACET, LESLEY, TRIC, TSHX, FT4 ####[address] [address] Legionella Ag, Uron 01-13-20 17 Legionella Ag, [...] this test. Report Status FINAL 01/12/2017 Normal [facility] Comment on above: Performed By: #### C BC, ALCB, CP, SALI, ACET, LESLEY, TRIC, TSHX, FT4 ####[address] [address] Strep pneum Ag,CSF/Uron Strep pneum Ag,CSF/Ur Specimen Descripti on .CLEAN CATCH URINE Special Requests NOT REPORTED Direct Exam NEGATIVE: Strep pneumoniae antigen not detected Report Status FINAL 01/12/2017 [facility] Comment on above: Performed By: #### C BC, ALCB, CP, SALI, ACET, LESLEY, TRIC, TSHX, FT4 ####[address] [address] Thyroxine, Freeon 01-12-2017 Thyroxine, Free 1.34 ng/dL Normal 0.93-1.70 [facility] Comment on above: Result Comment: [address] [place], [place] [phone] Performed By: #### C BC, ALCB, CP, SALI, ACET, LESLEY, TRIC, TSHX, FT4 ####[address] [address] US LIVERon 01-12-2017 US LIVER EXAMINATION:RIGHT UPPER QUADRANT [id number]/1/2017 7:30 amCOMPARISON:None.HIST ORY:ORDERING SYSTEM PROVIDED HISTORY: ABD [...] by:KAREY Kaurigned by:Christina Bonner MD01/12/17Final result Normal [facility] Urinalysis w/ Microon 2016 ----- Normal [facility] Comment on above: Performed By: #### C BC, ALCB, CP, SALI, ACET, LESLEY, TRIC, TSHX, FT4 ####[facility] [id number] [place] [address] Acetaminophen mass conc MODERATE Abnormal NEG M [facility] Comment on above: Performed By: #### C BC, ALCB, CP, SALI, ACET, LESLEY, TRIC, TSHX, FT4 ####[facility] [id number] [place] [address] Bilirubin (direct) Negative Normal NEG [facility] Comment on above: Performed By: #### C BC, ALCB, CP, SALI, ACET, LESLEY, TRIC, TSHX, FT4 ####[address] [address] Hemoglobin mass conc (Bld) Negative Normal NEG [facility] Comment on above: Performed By: #### C BC, ALCB, CP, SALI, ACET, LESLEY, TRIC, TSHX, FT4 ####[address] [address] Nitrite,Ur Negative Normal NEG [facility] Comment on above: Performed By: #### C BC, ALCB, CP, SALI, ACET, LESLEY, TRIC, TSHX, FT4 ####[address] [address] Turbidity CLEAR Normal CLEAR [facility] Comment on above: Performed By: #### C BC, ALCB, CP, SALI, ACET, LESLEY, TRIC, TSHX, FT4 ####[address] [address] Urine WBC's None Normal 0-5 [facility] Comment on above: Performed By: #### C BC, ALCB, CP, SALI, ACET, LESLEY, TRIC, TSHX, FT4 ####[address] [address] Urine, casts in sediment 0 TO 2 HYALINE Normal 0-8 [facility] Comment on above: Result Comment: Refe rence range defined for non-centrifuged specimen. Performed By: #### C BC, ALCB, CP, SALI, ACET, LESLEY, TRIC, TSHX, FT4 ####[address] [address] Urine, color YELLOW Normal YEL [facility] Comment on above: Performed By: #### C BC, ALCB, CP, SALI, ACET, LESLEY, TRIC, TSHX, FT4 ####[address] [address] Urine, epithelial cells in sediment None Normal 0-5 [facility] Comment on above: Result Comment: [address] [place] [address] Performed By: #### C BC, ALCB, CP, SALI, ACET, LESLEY, TRIC, TSHX, FT4 ####[address] [address] Urine, erythrocytes None Normal 0-4 [facility] Comment on above: Result Comment: Refe rence range defined for non-centrifuged specimen. Performed By: #### C BC, ALCB, CP, SALI, ACET, LESLEY, TRIC, TSHX, FT4 ####[address] [address] Urine, glucose presence Negative Normal NEG [facility] Comment on above: Performed By: #### C BC, ALCB, CP, SALI, ACET, LESLEY, TRIC, TSHX, FT4 ####[address] [address] Urine, leukocyte esterase presence Negative Normal NEG [facility] Comment on above: Performed By: #### C BC, ALCB, CP, SALI, ACET, LESLEY, TRIC, TSHX, FT4 ####[address] [address] Urine, pH 5.0 [pH] Normal 5.0-8.0 [facility] Comment on above: Performed By: #### C BC, ALCB, CP, SALI, ACET, LESLEY, TRIC, TSHX, FT4 ####[address] [address] Urine, protein presence Negative Normal NEG [facility] Comment on above: Performed By: #### C BC, ALCB, CP, SALI, ACET, LESLEY, TRIC, TSHX, FT4 ####[address] [address] Urine, specific gravity 1.016 Normal 1.005-1.030 [facility] Comment on above: Performed By: #### C BC, ALCB, CP, SALI, ACET, LESLEY, TRIC, TSHX, FT4 ####[address] [address] Urobilinogen,Ur Normal Normal NORM [facility] Comment on above: Performed By: #### C BC, ALCB, CP, SALI, ACET, LESLEY, TRIC, TSHX, FT4 ####[address] [address] Epithelial, Renal NOT REPORTED Normal 0 [facility] Comment on above: Performed By: #### C BC, ALCB, CP, SALI, ACET, LESLEY, TRIC, TSHX, FT4 ####[address] [address] Mucus Strands NOT REPORTED Normal NONE [facility] Comment on above: Performed By: #### C BC, ALCB, CP, SALI, ACET, LESLEY, TRIC, TSHX, FT4 ####[address] [address] Other Observations NOT REPORTED Normal NREQ [facility] Comment on above: Performed By: #### C BC, ALCB, CP, SALI, ACET, LESLEY, TRIC, TSHX, FT4 ####[address] [address] Trichomonas NOT REPORTED Normal [facility] Comment on above: Performed By: #### C BC, ALCB, CP, SALI, ACET, LESLEY, TRIC, TSHX, FT4 ####[address] [address] Urine, amorphous sediment presence in sediment NOT REPORTED Normal NONE [facility] Comment on above: Performed By: #### C BC, ALCB, CP, SALI, ACET, LESLEY, TRIC, TSHX, FT4 ####[address] [address] Urine, bacteria in sediment NOT REPORTED Normal NONE [facility] Comment on above: Performed By: #### C BC, ALCB, CP, SALI, ACET, LESLEY, TRIC, TSHX, FT4 ####[address] [address] Urine, crystals in sediment NOT REPORTED Normal NONE [facility] Comment on above: Performed By: #### C BC, ALCB, CP, SALI, ACET, LESLEY, TRIC, TSHX, FT4 ####[address] [address] Urine, yeast presence in sediment NOT REPORTED Normal NONE [facility] Comment on above: Performed By: #### C BC, ALCB, CP, SALI, ACET, LESLEY, TRIC, TSHX, FT4 ####[address] [address] Venous Blood Gaseson 017 Bicarbonate (HCO3) 23.9 mmol/L Low 24-30 [facility] Comment on above: Performed By: #### C BC, ALCB, CP, SALI, ACET, LESLEY, TRIC, TSHX, FT4 ####[address] [address] Body Temp. 37.0 Normal [facility] Comment on above: Performed By: #### C BC, ALCB, CP, SALI, ACET, LESLEY, TRIC, TSHX, FT4 ####[address] [address] CO2 46.5 mmol/L Normal 39-55 [facility] Comment on above: Performed By: #### C BC, ALCB, CP, SALI, ACET, LESLEY, TRIC, TSHX, FT4 ####[address] [address] FIO2 UNKNOWN Normal [facility] Comment on above: Result Comment: [address] [address] Performed By: #### C BC, ALCB, CP, SALI, ACET, LELSEY, TRIC, TSHX, FT4 ####[address] [address] Hemoglobin mass conc (Bld) 1.3 % Normal 0-5.0 [facility] Comment on above: Result Comment: %Ref erence Range:Non-Smokers 0.0-0.8 %Smokers 4-20 % Performed By: #### C BC, ALCB, CP, SALI, ACET, LESLEY, TRIC, TSHX, FT4 ####[address] [address] Negative Base Excess 1.6 mmol/L Normal 0.0-2.0 [facility] Comment on above: Performed By: #### C BC, ALCB, CP, SALI, ACET, LESLEY, TRIC, TSHX, FT4 ####[address] [address] O2 saturation 86.7 % High 60.0-85.0 [facility] Comment on above: Performed By: #### C BC, ALCB, CP, SALI, ACET, LESLEY, TRIC, TSHX, FT4 ####[address] [address] Oxygen in arterial blood 52.4 mm[Hg] High 30-50 [facility] Comment on above: Performed By: #### C BC, ALCB, CP, SALI, ACET, LESLEY, TRIC, TSHX, FT4 ####[address] [address] pH of blood 7.332 [pH] Normal 7.320-7.420 [facility] Comment on above: Performed By: #### C BC, ALCB, CP, SALI, ACET, LESLEY, TRIC, TSHX, FT4 ####[address] [address] Scott Test NOT REPORTED Normal [facility] Comment on above: Performed By: #### C BC, ALCB, CP, SALI, ACET, LESLEY, TRIC, TSHX, FT4 ####[address] [address] CO2 NOT REPORTED Normal 39-55 [facility] Comment on above: Performed By: #### C BC, ALCB, CP, SALI, ACET, LESLEY, TRIC, TSHX, FT4 ####[address] [address] Hemoglobin mass conc (Bld) NOT REPORTED Normal 95.0-98.0 [facility] Comment on above: Performed By: #### C BC, ALCB, CP, SALI, ACET, LESLEY, TRIC, TSHX, FT4 ####[address] [address] Mode NOT REPORTED Normal [facility] Comment on above: Performed By: #### C BC, ALCB, CP, SALI, ACET, LESLEY, TRIC, TSHX, FT4 ####[address] [address] Notification Time NOT REPORTED Normal [facility] Comment on above: Performed By: #### C BC, ALCB, CP, SALI, ACET, LESLEY, TRIC, TSHX, FT4 ####[address] [address] Notification: NOT REPORTED Normal [facility] Comment on above: Performed By: #### C BC, ALCB, CP, SALI, ACET, LESLEY, TRIC, TSHX, FT4 ####[address] [address] O2 Device/Flow/% NOT REPORTED Normal [facility] Comment on above: Performed By: #### C BC, ALCB, CP, SALI, ACET, LESLEY, TRIC, TSHX, FT4 ####[address] [address] PEEP/CPAP NOT REPORTED Normal [facility] Comment on above: Performed By: #### C BC, ALCB, CP, SALI, ACET, LESLEY, TRIC, TSHX, FT4 ####[place] [address] pH Adjst'd for Temp. NOT REPORTED Normal 7.320-7.420 M [facility] Comment on above: Performed By: #### C BC, ALCB, CP, SALI, ACET, LESLEY, TRIC, TSHX, FT4 ####[address] [address] pO2 Adj'd for Temp. NOT REPORTED Normal 30-50 [facility] Comment on above: Performed By: #### C BC, ALCB, CP, SALI, ACET, LESLEY, TRIC, TSHX, FT4 ####[address] [address] Positive Base Excess NOT REPORTED Normal 0.0-2.0 [facility] Comment on above: Performed By: #### C BC, ALCB, CP, SALI, ACET, LESLEY, TRIC, TSHX, FT4 ####[address] [address] PSV NOT REPORTED Normal [facility] Comment on above: Performed By: #### C BC, ALCB, CP, SALI, ACET, LESLEY, TRIC, TSHX, FT4 ####[address] [address] Pt. Position NOT REPORTED Normal [facility] Comment on above: Performed By: #### C BC, ALCB, CP, SALI, ACET, LESLEY, TRIC, TSHX, FT4 ####[address] [address] Respiratory rate NOT REPORTED Normal [facility] Comment on above: Performed By: #### C BC, ALCB, CP, SALI, ACET, LESLEY, TRIC, TSHX, FT4 ####[address] [address] Set Rate NOT REPORTED Normal [facility] Comment on above: Performed By: #### C BC, ALCB, CP, SALI, ACET, LESLEY, TRIC, TSHX, FT4 ####[address] [address] Site Drawn NOT REPORTED Normal [facility] Comment on above: Performed By: #### C BC, ALCB, CP, SALI, ACET, LESLEY, TRIC, TSHX, FT4 ####[address] [address] Text for Respiratory NOT REPORTED Normal [facility] Comment on above: Performed By: #### C BC, ALCB, CP, SALI, ACET, LESLEY, TRIC, TSHX, FT4 ####[address] [address] Total Hb NOT REPORTED Normal 12.0-16.0 [facility] Comment on above: Performed By: #### C BC, ALCB, CP, SALI, ACET, LESLEY, TRIC, TSHX, FT4 ####[address] [address] Total Rate NOT REPORTED Normal [facility] Comment on above: Performed By: #### C BC, ALCB, CP, SALI, ACET, LESLEY, TRIC, TSHX, FT4 ####[address] [address] [place] NOT REPORTED Normal [facility] Comment on above: Performed By: #### C BC, ALCB, CP, SALI, ACET, LESLEY, TRIC, TSHX, FT4 ####[address] [address] Vitamin D 25 OHon 01-12-2017 Vitamin D 25 [place] 6.5 ng/mL Low 30.0-100.0 [facility] Comment on above: Result Comment: Refe rence Range:Vitamin D status Range Deficiency <20 ng/mL Mild Deficiency 20-30 ng/mL Sufficiency 30-100 ng/mL Toxicity >100 ng/mL[address] [address] Performed By: #### C BC, ALCB, CP, SALI, ACET, LESLEY, TRIC, TSHX, FT4 ####[address] [address] Acetaminophenon 01-11-2017 Acetaminophen mass conc <10 Low 10-30 M [facility] Comment on above: Result Comment: [facility] [address] [place] [address] Performed By: #### C BC, ALCB, CP, SALI, ACET, LESLEY, TRIC, TSHX, FT4 ####[address] [address] Ammoniaon 01-11-2017 Ammonia 24 umol/L Normal 16-60 [facility] Comment on above: Result Comment: [facility] [address] [place] [address] Performed By: #### C BC, ALCB, CP, SALI, ACET, LESLEY, TRIC, TSHX, FT4 ####[address] [address] C-Reactive Proteinon 09-30-2 017 C reactive protein (CRP) 47.5 mg/L High 0.0-5.0 [facility] Comment on above: Result Comment: [address] [place] [address] Performed By: #### M YO, PRCAL, PHEP, CK, CRP, LIP, MG, VD25 ####[address] [address] CBCon 01-11-2017 Erythrocyte distribution width Auto Ratio (RBC) 16.0 % High 12.5-15.4 [facility] Comment on above: Performed By: #### C BC, ALCB, CP, SALI, ACET, LESLEY, TRIC, TSHX, FT4 ####[address] [address] Erythrocytes (RBC) 4.84 10*6/uL Normal 4.5-5.9 [facility] Comment on above: Performed By: #### C BC, ALCB, CP, SALI, ACET, LESLEY, TRIC, TSHX, FT4 ####[address] [address] Hematocrit (HCT) 40.9 % Low 41-53 [facility] Comment on above: Performed By: #### C BC, ALCB, CP, SALI, ACET, LESLEY, TRIC, TSHX, FT4 ####[address] [address] Hemoglobin mass conc (Bld) 13.6 g/dL Normal 13.5-17.5 [facility] Comment on above: Performed By: #### C BC, ALCB, CP, SALI, ACET, LESLEY, TRIC, TSHX, FT4 ####[address] [address] MCH 28.1 pg Normal 26-34 [facility] Comment on above: Performed By: #### C BC, ALCB, CP, SALI, ACET, LESLEY, TRIC, TSHX, FT4 ####[address] [address] MCHC mass conc (RBC) 33.3 g/dL Normal 31-37 [facility] Comment on above: Performed By: #### C BC, ALCB, CP, SALI, ACET, LESLEY, TRIC, TSHX, FT4 ####[address] [address] MCV 84.5 fL Normal 80-100 [facility] Comment on above: Performed By: #### C BC, ALCB, CP, SALI, ACET, LESLEY, TRIC, TSHX, FT4 ####[address] [address] Platelet mean volume (PMV) 10.5 fL Normal 6.0-12.0 [facility] Comment on above: Result Comment: [address] [place] [address] Performed By: #### C BC, ALCB, CP, SALI, ACET, LESLEY, TRIC, TSHX, FT4 ####[address] [address] Platelets 175 10*3/uL Normal 140-450 [facility] Comment on above: Performed By: #### C BC, ALCB, CP, SALI, ACET, LESLEY, TRIC, TSHX, FT4 ####[address] [address] WBC (Leukocytes) 10.3 10*3/uL Normal 3.5-11.0 [facility] Comment on above: Performed By: #### C BC, ALCB, CP, SALI, ACET, LESLEY, TRIC, TSHX, FT4 ####[address] [address] [address] CERVICAL SPINE WO CONTRAS Ton 01-11-2017 [...] by:KAREY Kaurigned by:Christina Bonner MD01/11/17Final result Normal [facility] CT CHEST WO CONTRASTon 01-11 CT CHEST [...] by:KAREY Beckettigned by:Dillon House MD01/11/17Final result Normal [facility] CT HEAD WO CONTRASTon 2016 CT HEAD [...] by:KAREY Beckettigned by:Dillon House MD01/11/17Final result Normal [facility] CT HEAD WO CONTRAST EXAMINATION:CT OF TH [...] position. Sulci are borderline-minimally prominent. No hyperdense [place] arteries are noted. Nodefinite focal areas [...] by:KAREY Knutsonigned by:Berenice Mosquera MD01/11/17Final result Normal [facility] Comp Metabolic Profon 2016 (cont.) Normal [facility] Comment on above: Result Comment: Aver age GFR for 50-59 years old: 93 mL/min/1.73sq mChronic Kidney Disease: <60 mL/min/1.73sq mKidney failure: <15 mL/min/1.73sq meGFR calculated using average adult body mass. Additional eGFR calculator available at:http://www.Nascentric.Property Owl/multiple_crcl_2012.htm[facility] [address] [place] [address] Performed By: #### C BC, ALCB, CP, SALI, ACET, LESLEY, TRIC, TSHX, FT4 ####[facility] [place] [address] Alanine aminotransferase (ALT) 16 U/L Normal 5-41 [facility] Comment on above: Performed By: #### C BC, ALCB, CP, SALI, ACET, LESLEY, TRIC, TSHX, FT4 ####[facility] [place] [address] Albumin 3.9 g/dL Normal 3.5-5.2 [facility] Comment on above: Performed By: #### C BC, ALCB, CP, SALI, ACET, LESLEY, TRIC, TSHX, FT4 ####[address] [place] [address] Albumin/Globulin Ratio 1.2 {ratio} Normal 1.0-2.5 M [facility] Comment on above: Performed By: #### C BC, ALCB, CP, SALI, ACET, LESLEY, TRIC, TSHX, FT4 ####[address] [place] [address] Alkaline Phos 101 U/L Normal 40-129 [facility] Comment on above: Performed By: #### C BC, ALCB, CP, SALI, ACET, LESLEY, TRIC, TSHX, FT4 ####[address] [address] Anion gap 14 mmol/L Normal 9-17 [facility] Comment on above: Performed By: #### C BC, ALCB, CP, SALI, ACET, LESLEY, TRIC, TSHX, FT4 ####[address] [address] Aspartate aminotransferase (AST) 24 U/L Normal <40 [facility] Comment on above: Performed By: #### C BC, ALCB, CP, SALI, ACET, LESLEY, TRIC, TSHX, FT4 ####[address] [address] Bilirubin Ql (U) 0.35 mg/dL Normal 0.3-1.2 [facility] Comment on above: Performed By: #### C BC, ALCB, CP, SALI, ACET, LESLEY, TRIC, TSHX, FT4 ####[facility] [address] [place] [address] Calcium 9.0 mg/dL Normal 8.6-10.4 [facility] Comment on above: Performed By: #### C BC, ALCB, CP, SALI, ACET, LESLEY, TRIC, TSHX, FT4 ####[facility] [address] [place] [address] Chloride 101 mmol/L Normal 98-107 [facility] Comment on above: Performed By: #### C BC, ALCB, CP, SALI, ACET, LESLEY, TRIC, TSHX, FT4 ####[address] [place] [address] CO2 25 mmol/L Normal 20-31 [facility] Comment on above: Performed By: #### C BC, ALCB, CP, SALI, ACET, LESLEY, TRIC, TSHX, FT4 ####[address] [place] [address] Creatinine 0.60 mg/dL Low 0.70-1.20 [facility] Comment on above: Performed By: #### C BC, ALCB, CP, SALI, ACET, LESLEY, TRIC, TSHX, FT4 ####[address] [address] eGFR (non-black) mL/min/{1.73_m2} Normal >60 [facility] Comment on above: Performed By: #### C BC, ALCB, CP, SALI, ACET, LESLEY, TRIC, TSHX, FT4 ####[address] [address] Glucose mass conc 139 mg/dL High 70-99 [facility] Comment on above: Performed By: #### C BC, ALCB, CP, SALI, ACET, LESLEY, TRIC, TSHX, FT4 ####[address] [place] [address] Potassium molar conc 3.5 mmol/L Low 3.7-5.3 [facility] Comment on above: Performed By: #### C BC, ALCB, CP, SALI, ACET, LESLEY, TRIC, TSHX, FT4 ####[address] [place] [address] Protein 7.1 g/dL Normal 6.4-8.3 [facility] Comment on above: Performed By: #### C BC, ALCB, CP, SALI, ACET, LESLEY, TRIC, TSHX, FT4 ####[address] [address] Sodium 140 mmol/L Normal 135-144 [facility] Comment on above: Performed By: #### C BC, ALCB, CP, SALI, ACET, LESLEY, TRIC, TSHX, FT4 ####[address] [address] Urea nitrogen 18 mg/dL Normal - [facility] Comment on above: Performed By: #### C BC, ALCB, CP, SALI, ACET, LESLEY, TRIC, TSHX, FT4 ####[address] [address] BUN/CRE Ratio NOT REPORTED Normal - [facility] Comment on above: Performed By: #### C BC, ALCB, CP, SALI, ACET, LESLEY, TRIC, TSHX, FT4 ####[address] [address] Staging: NOT REPORTED Normal [facility] Comment on above: Performed By: #### C BC, ALCB, CP, SALI, ACET, LESLEY, TRIC, TSHX, FT4 ####[address] [address] Creatine Kinaseon 01-11-2017 Creatine kinase (CK) 282 U/L Normal 39-308 [facility] Comment on above: Result Comment: [address] [address] Performed By: #### M YO, PRCAL, PHEP, CK, CRP, LIP, MG, VD25 ####[address] [address] Drug Scr, Abuse, Uron 2016 Amphetamine(s),Ur Positive Abnormal NEG [facility] Comment on above: Result Comment: (Pos itive cutoff 1000 ng/mL) Performed By: #### U AX, AICHA ####[address] [place] [address] Barbiturate(s),Ur Negative Normal NEG [facility] Comment on above: Result Comment: (Pos itive cutoff 200 ng/mL) Performed By: #### U AX, AICHA ####[facility] [id number] [place] [address] Base excess Negative Normal NEG [facility] Comment on above: Result Comment: (Pos itive cutoff 300 ng/mL) Performed By: #### U AX, AICHA ####[address] [address] Benzodiazepine(s) Positive Abnormal NEG [facility] Comment on above: Result Comment: (Pos itive cutoff 200 ng/mL) Performed By: #### U AX, AICHA ####[address] [place] [address] Cannabinoid(s),Ur Negative Normal NEG [facility] Comment on above: Result Comment: (Pos itive cutoff 50 ng/mL) Performed By: #### U AX, AICHA ####[address] [address] Interpretive Info Assay provides medic al screening only. The absence of expected drug(s) and/or Normal [facility] Comment on above: Result Comment: meta bolite(s) may indicate diluted or adulterated urine, limitations of testing or timing of collection.Testing for legal purposes should be confirmed by another method. To request confirmation of test result, please call the lab within 7 days of sample submission.[facility] [address] [place] [address] Performed By: #### U AX, AICHA ####[facility] [id number] [place] [address] Opiate(s), Ur Negative Normal NEG [facility] Comment on above: Result Comment: (Pos itive cutoff 300 ng/mL) Performed By: #### U AX, AICHA ####[address] [address] Oxycodone, Urine Positive Abnormal NEG [facility] Comment on above: Result Comment: (Pos itive cutoff 100 ng/mL) Performed By: #### U AX, AICHA ####[address] [address] Phencyclidine, Ur Negative Normal NEG [facility] Comment on above: Result Comment: (Pos itive cutoff 25 ng/mL) Performed By: #### U AX, AICHA ####[address] [address] Urine, methadone presence Negative Normal NEG [facility] Comment on above: Result Comment: (Pos itive cutoff 300 ng/mL) Performed By: #### U AX, AICHA ####[address] [address] Buprenorphrine, Ur NOT REPORTED Normal NEG [facility] Comment on above: Performed By: #### U AX, AICHA ####[address] [address] MDMA, Urine NOT REPORTED Normal NEG [facility] Comment on above: Performed By: #### U AX, AICHA ####[facility] [id number] [place] [address] Methamphetamine, Ur NOT REPORTED Normal NEG [facility] Comment on above: Performed By: #### U AX, AICHA ####[facility] [id number] [place] [address] Propoxyphene,Urine NOT REPORTED Normal NEG [facility] Comment on above: Performed By: #### U AX, AICHA ####[facility] Hospital[facility]price.[address]in[address] [place], [place] [id number] Urine, tricyclic antidepressants NOT REPORTED Normal NEG [facility] Comment on above: Performed By: #### U AX, AICHA ####[facility] [address] [place], [place] [id number] ED Noteon 01-11-2017 HIM IP Note OR Shoe Maker Normal [facility] HIM IP Note OR Shoe Maker Normal [facility] HIM IP Note OR Shoe Maker Normal [facility] HIM IP Note OR Shoe Maker Normal [facility] HIM IP Note OR Shoe Maker Normal [facility] HIM IP Note OR Shoe Maker Normal [facility] HIM IP Note OR Shoe Maker Normal [facility] HIM IP Note OR Shoe Maker Normal [facility] HIM IP Note OR Shoe Maker Normal [facility] HIM IP Note OR Shoe Maker Normal [facility] HIM IP Note OR Shoe Maker Normal [facility] HIM IP Note OR Shoe Maker Normal [facility] HIM IP Note OR Shoe Maker Normal [facility] HIM IP Note OR Shoe Maker Normal [facility] HIM IP Note OR Shoe Maker Normal [facility] HIM IP Note OR Shoe Maker Normal [facility] ED Provider Noteon 7 HIM IP Note OR Shoe Maker Normal [facility] Ethanol Alcoholon 01-11-2017 Ethanol mg/dL Normal <10 [facility] Comment on above: Performed By: #### C BC, ALCB, CP, SALI, ACET, LESLEY, TRIC, TSHX, FT4 ####[facility] [address] [place], [place] [id number] Ethanol percent <0.010 Normal [facility] Comment on above: Result Comment: [facility] [place], [place] [address] ([phone] Performed By: #### C BC, ALCB, CP, SALI, ACET, LESLEY, TRIC, TSHX, FT4 ####[address] [address] Hepatitis Acute Jordy 01-11 Hep A Ab,IgM NONREACTIVE Normal NR [facility] Comment on above: Result Comment: [address] [address] Performed By: #### M YO, PRCAL, PHEP, CK, CRP, LIP, MG, VD25 ####[address] [address] Hep B Core Ab,IgM NONREACTIVE Normal NR [facility] Comment on above: Performed By: #### M YO, PRCAL, PHEP, CK, CRP, LIP, MG, VD25 ####[address] [address] Hep B Surf Ag NONREACTIVE Normal NR [facility] Comment on above: Performed By: #### M YO, PRCAL, PHEP, CK, CRP, LIP, MG, VD25 ####[address] [address] Hep C Ab NONREACTIVE Normal NR [facility] Comment on above: Result Comment: The hepatitis [...] PRCAL, PHEP, CK, CRP, LIP, MG, VD25 ####[address] [address] History and Physicalon 01-11 HIM IP Note OR Shoe Maker Normal [facility] Lactic Acid,Whole Blon 01-11 Lactic Acid,Whole Bl 1.4 mmol/L Normal 0.7-2.1 [facility] Comment on above: Result Comment: [address] [address] Performed By: #### L ACWB ####[address] [address] Lipaseon 01-11-2017 Lipase 9 U/L Low 13-60 [facility] Comment on above: Result Comment: [address] [address] Performed By: #### C BC, ALCB, CP, SALI, ACET, LESLEY, TRIC, TSHX, FT4 ####[address] [address] Magnesiumon 01-11-2017 Magnesium 1.9 mg/dL Normal 1.6-2.6 [facility] Comment on above: Result Comment: [address] [address] Performed By: #### C BC, ALCB, CP, SALI, ACET, LESLEY, TRIC, TSHX, FT4 ####[address] [address] Myoglobinon 01-11-2017 Myoglobin 74 ng/mL High 28-72 [facility] Comment on above: Result Comment: [address] [address] Performed By: #### M YO, PRCAL, PHEP, CK, CRP, LIP, MG, VD25 ####[address] [address] Procalcitoninon 01-11-2017 Procalcitonin 2.36 ng/mL High <0.09 [facility] Comment on above: Result Comment: Proc alcitonin values from samples collected within the first 6 hours of systemic infection may still be low. Retesting may be indicated.Values from day 1 and day 4 can be entered into the Change in Procalcitonin Calculator ([email or web address]-arh-fwkscnmmom.com) to determine the patient's Mortality Risk Prognosis[address] [address] Performed By: #### M YO, PRCAL, PHEP, CK, CRP, LIP, MG, VD25 ####[address] [address] Salicylateon 01-11-2017 Salicylate 1 mg/dL Low 3-10 [facility] Comment on above: Result Comment: [address] [address] Performed By: #### C BC, ALCB, CP, SALI, ACET, LESLEY, TRIC, TSHX, FT4 ####[address] [address] TSH w/reflex to FT4on 2016 Thyroid stimulating hormone (TSH) 6.10 m[IU]/L High 0.30-5.00 [facility] Comment on above: Result Comment: [address] [address] Performed By: #### C BC, ALCB, CP, SALI, ACET, LESLEY, TRIC, TSHX, FT4 ####[address] [address] Toxic Tricyclic Sc,Blon 12-15 Toxic Tricyclic Sc,Bl Negative Normal NEG [facility] Comment on above: Result Comment: [facility] [employer] [address] [place] [address] Performed By: #### C BC, ALCB, CP, SALI, ACET, LESLEY, TRIC, TSHX, FT4 ####[address] [address] UA w/Reflex Cultureon 2016 Acetaminophen mass conc MODERATE Abnormal NEG M [facility] Comment on above: Performed By: #### U AX, AICHA ####[address] [place] [address] Bilirubin (direct) Negative Normal NEG [facility] Comment on above: Performed By: #### U AX, AICHA ####[address] [address] Comment Microscopic exam not performed based on chemical results unless requested in Normal [facility] Comment on above: Result Comment: orig inal order.[address] [address] Performed By: #### U AX, AICHA ####[address] [address] Hemoglobin mass conc (Bld) Negative Normal NEG [facility] Comment on above: Performed By: #### U AX, AICHA ####[address] [address] Nitrite,Ur Negative Normal NEG [facility] Comment on above: Performed By: #### U AX, AICHA ####[address] [address] Turbidity CLEAR Normal CLEAR [facility] Comment on above: Performed By: #### U AX, AICHA ####[address] [address] Urine, color YELLOW Normal YEL [facility] Comment on above: Performed By: #### U AX, AICHA ####[address] [address] Urine, glucose presence Negative Normal NEG [facility] Comment on above: Performed By: #### U AX, AICHA ####[address] [address] Urine, leukocyte esterase presence Negative Normal NEG [facility] Comment on above: Performed By: #### U AX, AICHA ####[facility] [address] [place] [address] Urine, pH 5.0 [pH] Normal 5.0-8.0 [facility] Comment on above: Performed By: #### U AX, AICHA ####[facility] [address] [place] [address] Urine, protein presence Negative Normal NEG M [facility] Comment on above: Performed By: #### U AX, AICHA ####[facility] [address] [place] [address] Urine, specific gravity 1.031 High 1.005-1.030 [facility] Comment on above: Performed By: #### U AX, AICHA ####[facility] [address] [place] [address] Urobilinogen,Ur Normal Normal NORM [facility] Comment on above: Performed By: #### U AX, AICHA ####[facility] [address] [place] [address] XR CHEST STANDARD TWO VWon 0 01-11-2017 [...] by:KAREY Knutsonigned by:Berenice Mosquera MD01/11/17Final result Normal [facility] Vital Signs Date Time Vital Sign Value Performing Clinician Faci lity 12-01-2023 13:03-0400 Body height 177.8 cm EMAIL MANAGERMona Daverbacher Work Phone: [facility] 12-01-2023 13:03-0400 Body mass index (BMI) [Ratio] 23.1 kg/m2 EMAIL MANAGERMona LainezBritney Tenzinrbacher Work Phone: [facility] 12-01-2023 13:03-0400 Body weight 73.02 kg EMAIL MANAGERMona Daverbacher Work Phone: [facility] 12-01-2023 13:03-0400 Diastolic blood pressure 70 mm[Hg] EMAIL MANAGERMona Daverbacher Work Phone: [facility] 12-01-2023 13:03-0400 Heart rate 90 /min EMAIL MANAGERMona Daverbacher Work Phone: [facility] 12-01-2023 13:03-0400 SaO2% (BldA) [Mass fraction] 97 % EMAIL MANAGERMona Wallaceacher Work Phone: [facility] 12-01-2023 13:03-0400 Systolic blood pressure 114 mm[Hg] EMAIL MANAGERMona Wallaceacher Work Phone: [facility] 11-17-2023 10:52-0400 Body height 177.8 cm EMAIL MANAGERMona Daverbacher Work Phone: [facility] 11-17-2023 10:52-0400 Body mass index (BMI) [Ratio] 23.2 kg/m2 EMAIL MANAGERMona Daverbacher Work Phone: [facility] 11-17-2023 10:52-0400 Body weight 73.48 kg EMAIL MANAGERMona Daverbacher Work Phone: [facility] 11-17-2023 10:52-0400 Diastolic blood pressure 62 mm[Hg] EMAIL MANAGERMona Daverbacher Work Phone: [facility] 11-17-2023 10:52-0400 Heart rate 77 /min OPAL Jhanifer Madisonacher Work Phone: [facility] 11-17-2023 10:52-0400 SaO2% (BldA) [Mass fraction] 98 % EMAIL MANAGER Britney Tenzinrbacher Work Phone: [facility] 11-17-2023 10:52-0400 Systolic blood pressure 108 mm[Hg] EMAIL MANAGERMona JhaBritney Madisonacher Work Phone: [facility] 10-23-2023 09:59-0400 Body height 177.8 cm EMAIL MANAGERMona LainezBritney Madisonacher Work Phone: [facility] 10-23-2023 09:59-0400 Body mass index (BMI) [Ratio] 23.2 kg/m2 EMAIL MANAGERMona LainezBritney Madisonacher Work Phone: [facility] 10-23-2023 09:59-0400 Body temperature 97.9 [degF] EMAIL MANAGERMona JhaBritney Madisonacher Work Phone: [facility] 10-23-2023 09:59-0400 Body weight 73.48 kg EMAIL MANAGERMona JhaBritney Madisonacher Work Phone: [facility] 10-23-2023 09:59-0400 Diastolic blood pressure 73 mm[Hg] OPAL Wallaceacher Work Phone: [facility] 10-23-2023 09:59-0400 Heart rate 95 /min EMAIL MANAGERMona Wallaceacher Work Phone: [facility] 10-23-2023 09:59-0400 Respiratory rate 20 /min EMAIL MANAGERMona Daverbacher Work Phone: [facility] 10-23-2023 09:59-0400 SaO2% (BldA) [Mass fraction] 95 % EMAIL MANAGERMona Wallaceacher Work Phone: [facility] 10-23-2023 09:59-0400 Systolic blood pressure 108 mm[Hg] OPAL Almazan Work Phone: [facility] 08-21-2023 14:090400 Body height 177.8 cm [facility] 08-21-2023 14:09-0400 Body mass index (BMI) [Ratio] 22.9 kg/m2 [facility] 08-21-2023 14:09-0400 Body temperature 98 [degF] [facility] 08-21-2023 14:09040 Body weight 72.57 kg [facility] 08-21-2023 14:090400 Diastolic blood pressure 87 mm[Hg] [facility] 08-21-2023 14:09040 Heart rate 79 /min [facility] 08-21-2023 14:090400 Respiratory rate 20 /min [facility] 08-21-2023 14:090400 SaO2% (BldA) [Mass fraction] 98 % [facility] 08-21-2023 14:09-0400 Systolic blood pressure 135 mm[Hg] [facility] Encounters Encounter Date Encounter Type Care Provider Facility Start: 12-01-2023 End: 12-01-2023 ambulatory OPAL Almazan Work Phone: [facility] Work Phone: Start: 12-01-2023 End: 12-01-2023 Patient encounter procedure [facility] Start: 11-17-2023 Patient encounter status OPAL Almazan Work Phone: [facility] Start: 11-17-2023 End: 11-17-2023 ambulatory OPAL Almazan Work Phone: [facility] Work Phone: Start: 11-17-2023 End: 11-17-2023 Encounter for general adult medical examination without abnormal findings OPAL Almazan Work Phone: [facility] Start: 11-17-2023 End: 11-17-2023 Patient encounter procedure OPAL Almazan Work Phone: [facility] Work Phone: Start: 10-23-2023 End: 10-23-2023 ambulatory OPAL Almazan Work Phone: [facility] Work Phone: Start: 10-23-2023 End: 10-23-2023 Patient encounter procedure OPAL Almazan Work Phone: [facility] Work Phone: Start: 10-23-2023 Registered Recurring OPAL Almazan Work Phone: [facility] Work Phone: Start: 10-23-2023 ambulatory Mhd Van Martinez Fa cility:[facility] Start: 08-21-2023 End: 08-21-2023 ambulatory [facility] Work Phone: Start: 08-21-2023 End: 08-21-2023 Patient encounter procedure [facility] Work Phone: Start: 05-06-2022 End: 05-07-2022 ambulatory TIFFANIE MILES [facility] Start: 03-15-2020 End: 03-16-2020 Patient encounter procedure LORE MARKER Facility: Start: 01-11-2017 End: 01-13-2017 Evaluation and management of inpatient [facility] Procedures Date Procedure Procedure Detail Performing Clinician Start: 10-20-2023 Carcinoembryonic antigen cea Mhd Van Martinez Comment on above: Result Comment: Nilsa brantley tumor marker results determined by assays using different manufacturers or methods may not be comparable. [facility] market risk manager and method: ALEXI UNICEL DXI, 2 SITE IMMUNOENZYMATIC ?SANDWICH? ASSAY. PERFORMED BY: [place] [address] PATHOLOGIST NATUROPATHIC ONCOLOGY PROVIDER NIKITA URIBE M.D. Performed By: #### C EA, SCAN CBC #### [address] Start: 10-20-2023 Computed tomography of abdomen and pelvis with contrast EMAIL MANAGERMona Almazan Work Phone: Start: 10-20-2023 CT of thorax with contrast EMAIL MANAGERMona Almazan Work Phone: Start: 01-13-2017 CBC BETRO [...] 01-11-2017 VITAMIN D 25 HYDROXY BE TANIA WALLAECEK Start: 01-11-2017 CULTURE BLOOD #1 BETRO SADEK [...] AL VTE PROPHYLAXIS HERNANRO SADEK Start: 01-11-2017 PRACTICE REPRESENTATIVE CLINICAL BEDSIDE SWALLOW EVALUATION AND TREATMENT HERNANRO SADEK Start: 01-11-2017 TELEMETRY MONITORING PETEY LLOYD Start: 01-11-2017 VITAL SIGNS ADRIANA Knight Start: 01-11-2017 PATIENT STATUS (FROM ED OR OR/PROCEDURAL) HERNANRO SADEK Start: 01-11-2017 IP CONSULT TO AIRCRAFT BODY REPAIRER AL MEDICINE HERNANRO SADEK Start: 01-11-2017 CULTURE [...] Activity Detail Author Start: 12-01-2023 Patient referral [facility] Work Phone: Comprehensive metabo lic 1999 panel - Serum or Plasma [facility] Comprehensive metabo lic 1999 panel - Serum or Plasma [facility] CT Abdomen and Pelvi s W contrast IV [facility] CT Chest W contrast IV [facility] CT Chest W contrast IV [facility] Patient referral [facility] Work Phone: [facility] Payers Date Payer Category Payer Self-pay 2023 Medicaid [id number] 1965 Unknown [id number] 1961 Unknown [id number] Unknown [id number] Social History Date Type Detail Facility Start: 08-21-2023 Tobacco smoking stat [facility] Current some day smoker [facility] Start: 1965 Sex Assigned At Male F [facility] Chief complaint+Reason for visit Narrative Note Date & Type Note Facility Chief complaint+Reason for visit Narrative Reason for Visit History of esophagea l cancer Intra-abdominal lymphadenopathy Left lower lobe pulmonary nodule Dental abscess History of esophageal cancer Left lower lobe pulmonary nodule Neuropathy Screening for lipid disorders Wellness examination Chronic pain Neuropathy [facility] Work Phone: Evaluation note Note Date & Type Note Facility Evaluation note No assessment information availa ble [facility] Work Phone: Evaluation note Note Date & Type Note Facility Evaluation note Diagnosis Onset Date History of esophageal cancer acute Intra-abdominal lymphadenopathy acute Left lower lobe pulmonary nodule acute History of esophageal cancer acute Intra-abdominal lymphadenopathy acute Left lower lobe pulmonary nodule acute [facility] Work Phone: Evaluation note Note Date & [...] for lipid disorders acute Wellness examination acute [facility] Work Phone: Evaluation note Note Date & Type Note Facility Evaluation note Diagnosis Onset Date History of esophageal cancer acute Intra-abdominal lymphadenopathy acute Left lower lobe pulmonary nodule acute Dental abscess acute History of esophageal cancer acute Left lower lobe pulmonary nodule acute Neuropathy acute Screening for lipid disorders acute Wellness examination acute Chronic pain acute Neuropathy acute [facility] Work Phone: Hospital Discharge instructions Note Date & Type Note Facility Hospital Discharge instructions Ambulatory OrdersReferral to Neurology Location: None SelectedReferral to Psychiatry Time Frame: 12/01/23, Location: None Selected [facility] Work Phone: Progress note Note Date & Type Note Facility Progress note Note Date/Time August 21, 2023 2:04pm [place] [address] Cancer Center Note Signed Patient: Berenice Leary MR#: [id number] : 1965 Acct:[id number] Age/Sex: 58 / M Type: DEP AMB [...] 03/15/2014 through 07/27/2013 followed by surgery with Catharpin Natan esophagectomy on09/27/2013 and the pathology stage was [id number] N1. He then been followed at [facility] by medical oncology and radiation oncology with no evidence of recurrence to date other than sporadic nonspecific findings of lung nodules or occasional intrathoracic or intra-abdominal lymph will followbeen waxing and waning and variably changing or resolving over the last 10 years. On 08/21/2023 he moved his care to find at [place] and want to be followed here locally [...] by surgery followed by active surveillance at [facility]. He has been followed for active surveillance at the [facility] but lately his medical oncologist left the ER and was replaced with another oncologist who he did not like and wanted to transfer his care to [address] [place] [address] since he lives in [facility]. Oncology history started when he [...] he had. On 09/27/2013 he received laparoscopic Catharpin Natan esophagectomy and pathology stage was adenocarcinoma [...] seen by an oncologist was in 2020. [facility] History Attestation statement: The following information was [...] Heart disease Mother [facility]: Diagnosed with Stroke Social History [...] signed by Julio Martinez MD> 08/21/23 1506 [facility] Work Phone: Progress note Note Date & Type Note Facility Progress note Note Date/Time October 23, 2023 9:58am [facility] [place] [address] Cancer Center Note Signed Patient: Berenice Leary MR#: [id number] : 1965 Acct:[id number] Age/Sex: 58 / M Type: REG AMB [...] - He then been followed at [facility] by medical oncology and radiation oncology with no evidence of recurrence to date other than sporadic nonspecific findings of lung nodules or occasional intrathoracic or intra-abdominal lymph nodes been waxing and waning and variably changing or resolving over the last 10 years. -On 08/21/2023 he moved and transferred his care to our [facility] center and wants to be followed here [...] by surgery followed by active surveillance at [facility]. He has been followed for active surveillance at the [facility] but lately his medical oncologist left the ER and was replaced with another oncologist who he did not like and wanted to transfer his care to [address] [place] [address] since he lives in [facility]. Oncology history started when he [...] not seem to be metastatic disease as [facility] radiation oncologist note there. Tragically stated without [...] voices no concerns at time of intake, [facility] Medical History Medical History (Updated 08/21/23 @ [...] signed by Julio Martinez MD> 10/23/23 1021 [facility] Work Phone: Summary Purpose Family History Relationship [...] section and content) DATE CREATED AUTHOR 10/08/2017 [facility] DATE CREATED AUTHOR AUTHOR'S ORGANIZ ATION 03/21/2020 [facility] DATE CREATED AUTHOR AUTHOR'S ORGANIZ ATION 11/15/2021 [facility] DATE CREATED AUTHOR AUTHOR'S ORGANIZ ATION 11/06/2023 [facility] DATE CREATED AUTHOR AUTHOR'S ORGANIZ ATION 11/24/2023 [facility] Care Teams (unrecognized sec tion and content) Team Status: Active Member Role Status Dates Britney Almazan APRN [employer] Primary Care Provider Active Team Status: Inactive Member Role Status Dates Britney Almazan APRN [employer] Primary Care Provider Active Start: August 21, 2023 End: August 21, 2023 Julio Martinez MD Attending Provider Active Start: August 21, 2023 End: August 21, 2023 Tha Tan Referring Provider Active S tart: August 21, 2023 End: August 21, 2023 Team Status: Active Member Role Status Dates Britney Almazan APRN [employer] Primary Care Provider, Referring Provider Active Start: October 23, 2023 Julio Martinez MD Attending Provider Active Start: October 23, 2023 Team Status: Inactive Member Role Status Dates Britney Almazan APRN [employer] Primary Care Provider Active Start: October 23, [...] BE BASED ON THE PRIMARY CLINICAL RECORDS. [facility]. provides no warranty or guarantee of the accuracy or completeness of information in this document.
[2024-07-19] MEDS: ACETAMINOPHEN 500 MG TABLET 1000 MG PO (22:58)
[2024-07-19] MEDS: FAMOTIDINE/PF 20 MG/2 ML VIAL IV (22:59)
[2024-07-19] MEDS: LACTATED RINGER'S SOLUTION 1,000 ML 125 ML IV (22:59)
[2024-07-20] VITALS (14 sets, daily range): BP systolic 98–127; BP diastolic 56–83; PULSE 88–116; TEMP 36.6–36.9; O2SAT 96–97
[2024-07-20 01:10] LABS: Lactate/Lactic Acid 1.6 mmol/L (0.4-2.0)
[2024-07-20] MEDS: LACTATED RINGER'S SOLUTION 1,000 ML 125 ML IV (05:15)
[2024-07-20 05:40] LABS: Basophils Percent Auto 0.4 % (0.2-2.0); Eosinophils Absolute Auto 0.1 10^3/uL (0.0-0.7); Eosinophils Percent Auto 1.8 % (0.9-7.0); Hematocrit 36.1 % (42.0-54.0); Hemoglobin 11.9 g/dL (14.0-18.0); Immature Granulocytes Abs Auto 0.01 10^3/uL (0.00-0.03); Immature Granulocytes Pct Auto 0.1 % (0.0-0.5); Lymphocytes Absolute Auto 1.8 10^3/uL (1.2-3.8); Lymphocytes Percent Auto 22.7 % (20.5-60.0); Mean Corpuscular Hemoglobin 29.8 pg (25.9-34.0); Mean Corpuscular Volume 90.5 fL (80.0-94.0); Mean Platelet Volume 11.7 fL (9.5-13.5); Monocytes Absolute Auto 0.7 10^3/uL (0.3-0.8); Monocytes Percent Auto 8.9 % (1.7-12.0); Neutrophils Absolute Auto 5.2 10^3/uL (1.4-6.5); Neutrophils Percent Auto 66.1 % (43.0-75.0); Platelet Count 171 10^3/uL (150-450); Red Blood Count 3.99 10^6/uL (4.70-6.10); Red Cell Distribution Width 14.3 % (11.0-15.0); White Blood Count 7.9 10^3/uL (4.0-11.0)
[2024-07-20 05:58] LABS: Alanine Aminotransferase 18 U/L (16-63); Albumin Globulin Ratio 0.7; Albumin Level 2.4 g/dL (3.4-5.0); Alkaline Phosphatase 91 U/L (46-116); Anion Gap 8.4; Aspartate Amino Transferase 44 U/L (15-37); BUN Creatinine Ratio 18.6; Bilirubin Total 0.7 mg/dL (0.2-1.0); Carbon Dioxide 31.1 mmol/L (21.0-32.0); Chloride 103 mmol/L (98-107); Estimated GFR (African America >60 (>=60 mL/min/1.73m^2); Estimated GFR (Non-African Ame >60 (>=60 mL/min/1.73m^2); Globulin 3.4 g/dL; Glucose 134 mg/dL (74-106); Magnesium 1.3 mg/dL (1.8-2.4); Potassium 3.5 mmol/L (3.5-5.1); Sodium 139 mmol/L (136-145); Total Protein 5.8 g/dL (6.4-8.2)
[2024-07-20] MEDS: MAGNESIUM SULFATE IN WATER 2 GM/50 ML PREMIX IV (07:40)
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
[2024-07-20] MEDS: FAMOTIDINE/PF 20 MG/2 ML VIAL IV (09:48)
--- NOTE | 2024-07-20 11:17 | P.DS_ITS ---
DS: Providers Provider Date of admission: 07/19/24 21:40 Primary care physician: Non-Staff Physician, Attending physician on admission: Emiliana Matt Discharging clinician: Emiliana Matt DS: Diagnosis Discharge Diagnosis (1) Drug overdose, multiple drugs: Qualifiers: Encounter type: initial encounter Injury intent: accidental or unintentional Qualified Code(s): T50.911A - Poisoning by multiple unspecified d rugs, medicaments and biological substances, accidental (unintentional), initial encounter (2) Polysubstance abuse: (3) Hypomagnesemia: DS: Summary Hospital Course Hospital Course: please see H&P dated 07/20/24 Time Spent with Patient Time attestation: Total time spent providing and/or coordinating discharge services: Exam Narrative Exam Narrative: please see H&P dated 07/20/24 Constitutional Vital Signs, click to edit/add: Last Vital Signs Temp 98 F 07/20/24 04:00 Pulse 102 H 07/20/24 08:10 Resp 15 07/20/24 08:10 BP 126/77 07/20/24 07:40 Pulse Ox 96 07/20/24 10:17 O2 Del Method Room Air 07/20/24 10:17 O2 Flow Rate 4 07/19/24 20:59 DS: Data Data Completed and Pending Labs on day of discharge: Labs from last 24 hours 07/20/24 07/20/24 07/19/24 05:21 00:20 20:26 WBC 7.9 RBC 3.99 L Hgb 11.9 L Hct 36.1 L MCV 90.5 MCH 29.8 MCHC 33.0 RDW 14.3 Plt Count 171 MPV 11.7 Neut % (Auto) 66.1 Lymph % (Auto) 22.7 [place] % (Auto) 8.9 Eos % (Auto) 1.8 Baso % (Auto) 0.4 Neut # (Auto) 5.2 Lymph # (Auto) 1.8 [place] # (Auto) 0.7 Eos # (Auto) 0.1 Baso # (Auto) 0.0 Abs Immat Gran (auto) 0.01 Imm/Tot Granulo (auto) 0.1 Puncture Site R radial ABG pH 7.382 ABG pCO2 46.7 H ABG pO2 70.4 L ABG HCO3 27.7 H ABG O2 Saturation 93.8 ABG Base Excess 2.6 H Scott Test Positive Sodium 139 Potassium 3.5 Chloride 103 Carbon Dioxide 31.1 Anion Gap 8.4 BUN 13.0 Creatinine 0.70 Est GFR ( Amer) >60 Est GFR (Non-Af Amer) >60 BUN/Creatinine Ratio 18.6 Glucose 134 H Lactate 1.6 Calcium 8.0 L Magnesium 1.3 L Total Bilirubin 0.7 AST 44 H ALT 18 Alkaline Phosphatase 91 Troponin I High Sens Total Protein 5.8 L Albumin 2.4 L Globulin 3.4 Albumin/Globulin Ratio 0.7 Urine Color Urine Clarity Urine pH Ur Specific Perry Urine Protein Urine Glucose (UA) Urine Ketones Urine Occult Blood Urine Nitrite Urine Bilirubin Urine Urobilinogen Ur Leukocyte Esterase Urine RBC Urine WBC Ur Squamous Epith Cells Urine Crystals Urine Bacteria Urine Casts Urine Mucus Ur Culture Indicated? Salicylates Urine Opiates Screen Ur Buprenorphine Scrn Ur Oxycodone Screen Urine Methadone Screen Acetaminophen Ur Barbiturates Screen U Tricyclic Antidepress Ur Phencyclidine Scrn Ur Amphetamines Screen U Methamphetamines Scrn U Benzodiazepines Scrn Urine Cocaine Screen U Cannabinoids Screen Ethanol Quant 07/19/24 07/19/24 19:56 19:45 WBC 11.1 H RBC 4.65 L Hgb 13.9 L Hct 42.6 MCV 91.6 MCH 29.9 MCHC 32.6 RDW 14.3 Plt Count 192 MPV 11.3 Neut % (Auto) 84.0 H Lymph % (Auto) 9.0 L [place] % (Auto) 6.1 Eos % (Auto) 0.1 L Baso % (Auto) 0.5 Neut # (Auto) 9.3 H Lymph # (Auto) 1.0 L [place] # (Auto) 0.7 Eos # (Auto) 0.0 Baso # (Auto) 0.1 Abs Immat Gran (auto) 0.03 Imm/Tot Granulo (auto) 0.3 Puncture Site ABG pH ABG pCO2 ABG pO2 ABG HCO3 ABG O2 Saturation ABG Base Excess Scott Test Sodium 138 Potassium 3.8 Chloride 98 Carbon Dioxide 30.3 Anion Gap 13.5 BUN 15.0 Creatinine 0.92 Est GFR ( Amer) >60 Est GFR (Non-Af Amer) >60 BUN/Creatinine Ratio 16.3 Glucose 89 Lactate 2.3 H* Calcium 9.5 Magnesium Total Bilirubin 1.1 H AST 54 H ALT 31 Alkaline Phosphatase 122 H Troponin I High Sens 9.8 Total Protein 8.0 Albumin 3.4 Globulin 4.6 Albumin/Globulin Ratio 0.7 Urine Color Dk. orange Urine Clarity Clear Urine pH 6.5 Ur Specific Perry 1.020 Urine Protein Trace Urine Glucose (UA) 100 A Urine Ketones 15 A Urine Occult Blood Negative Urine Nitrite Negative Urine Bilirubin Small A Urine Urobilinogen 4.0 A Ur Leukocyte Esterase Negative Urine RBC 0-2 Urine WBC 2-5 A Ur Squamous Epith Cells None seen Urine Crystals None seen Urine Bacteria Trace A Urine Casts None seen Urine Mucus None seen Ur Culture Indicated? No Salicylates <2.8 Urine Opiates Screen Negative Ur Buprenorphine Scrn Positive A Ur Oxycodone Screen Negative Urine Methadone Screen Negative Acetaminophen <2.0 L Ur Barbiturates Screen Negative U Tricyclic Antidepress Positive A Ur Phencyclidine Scrn Negative Ur Amphetamines Screen Positive A U Methamphetamines Scrn Positive A U Benzodiazepines Scrn Positive A Urine Cocaine Screen Negative U Cannabinoids Screen Negative Ethanol Quant <3 Discharge Plan Discharge Disposition: Home, Self-Care Discharge Medications: Continued No Known Home Medications Activity: increase activity as tolerated Diet: advance to your usual diet Print Language: Syriac Forms: Portal Instructions Follow Up Appointments: Please make follow up appointment or establish appointment with Family Doctor.
--- NOTE | 2024-07-20 11:22 | CM.NOTE ---
Rounds made with Dr. Matt. Dr. Matt reviews plan of care with Harriet Heriberto. Plan for discharge today.
--- NOTE | 2024-07-20 11:31 | SWNOTE1 ---
SW stopped in to speak with pt and verify the address where he was going. Pt provided his address for his apartment. He voiced that his brother may be able to get him. SW advised that the director tried calling him, but he did not answer. [place] is working on transportation, possibly security taking pt home. SW did ask pt if he needed any resources for drug rehab/counseling. Pt voiced he does not and that he has all the information he needs at home.
--- NOTE | 2024-07-20 12:05 | PC.NURSE ---
pt dressed per self and discharge instructions given to pt with follow up appt. taken to exit in wheelchair with belongings. multiple attempts made to contact pts family/friends or ride home without success. discussed with production crew supervisor, arrangements made with security to take pt home.
--- NOTE | 2024-07-21 12:54 | CM.DCFOLLOWU ---
Phone number out of service.
== END 2024-07-20 12:04 | disposition home or self-care (01) ==
LOC: ER 21:57 → ICU 22:49
PROVIDERS: Registered Nurse; Admitting Provider Family Medicine; Emergency Provider Internal Medicine; Visit Provider Family Medicine
DX: T50.911A Poisoning by multiple unspecified drugs, medicaments and biological substances, accidental (unintentional), initial encounter (principal); R41.82 Altered mental status, unspecified; R09.02 Hypoxemia; F19.10 Other psychoactive substance abuse, uncomplicated; Z85.01 Personal history of malignant neoplasm of esophagus; Z92.21 Personal history of antineoplastic chemotherapy; F17.200 Nicotine dependence, unspecified, uncomplicated; E83.42 Hypomagnesemia
CPT/HCPCS: 36415; 36600; 70450; 71045; 80053; 80179; 80307; 80320; 80329; 81001; 82805; 83605; 83735; 84484; 85025; 93005; 94761; 96361; 96365; 96375; 96376; 99285; G0378; J3475; J3490

== ENCOUNTER 2024-09-04 23:24 | Emergency (ER) | payer OTHER, SELFPAY ==
--- OUTSIDE RECORDS SUMMARY | 2023-10-23 07:47 | XMS_ITS ---
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 / C15.5(ICD-10) Julio Martinez Active [facility] 10/23/2023 Unknown Personal history of malignant neoplasm of esophagus / Z85.01(ICD-10) Julio Mratinez [facility] PROCEDURES No Procedure Records Found RESULTS CT ABDOMEN PELVIS W CON Observed: 2023 2:41 PM Status: COMPLETED Source: [facility] [address] [address] [address] Scan Report Signed Patient: Sigifredo Leary MR#: [id number] 42 : 1965 Acct:[id number] Age/Sex: 58 / M ADM Date: 10/20/23 Loc: XT [facility] Dr: Julio Martinez MD Copies to: Julio Martinez MD Ordering Provider: Julio Martinez MD Date of Service: 10/20/23 CT/CT chest w con: C15.9 - Malignant neoplasm of esophagus, unspecified ([id number]) CT/CT abdomen pelvis w con: C15.9 - Malignant neoplasm of esophagus, unspecified CT CHEST, ABDOMEN AND PELVIS WITH INTRAVENOUS CONTRAST: CLINICAL HISTORY: Restaging esophageal cancer. COMPARISON: Outside CT chest, abdomen and pelvis 02/15/2022. TECHNIQUE: TECHNIQUE: Spiral images were obtained through the chest, abdomen and pelvis following the administration of IV contrast. This CT exam was performed using one or more following dose reduction techniques: Automated exposure control, adjustment of the mA and/or kV according to patient size, or use of iterative reconstruction technique. FINDINGS: CT chest: Mediastinum:Thoracic aorta appears normal in caliber. Pulmonary trunk appears nondilated. No pleural effusion or lymphadenopathy. The patient is status post gastric pull- through. Lungs:Scattered areas of lung scarring. No consolidation pneumothorax or pleural effusion. Groundglass nodularity predominantly involving the left lung grossly similar to the prior study given differences in protocol. Soft tissues/Bones: Soft tissues surrounding the chest wall demonstrate no acute findings. Osseous structures demonstrate degenerative change. CT abdomen and pelvis: Organs:Liver gallbladder portal vein pancreas spleen and adrenal glands appear unremarkable. Cyst right kidney. Left kidney appears unremarkable. Abdominal radiograph is normal in caliber.[ GI: Stomach is grossly unremarkable. Small bowel appears nondilated. Evidence of constipation with distention of the rectum with stool to approximately 7.5 cm.[ Pelvis:[Left-sided fat filled inguinal hernia. Urinary bladder is grossly unremarkable. Prostate gland normal in size.] Peritoneum/Retroperitoneum:No free air, free fluid or lymphadenopathy.[ Abd wall/Bones:Abdominal wall demonstrates no acute findings. Osseous structures demonstrate degenerative change.[ CT/CT chest w con IMPRESSION: 1. No CT evidence of tumor recurrence or metastatic disease within the chest, abdomen or pelvis. 2. Degree of groundglass tree-in-bud nodularity primarily involving the left lung grossly similar to the prior outside CT chest study. A sequela of an infectious or inflammatory process possibly aspiration etiology cannot BE excluded. CT follow-up is recommended. 3. Evidence of constipation. Impression dictated by: Nash Lockwood Jr., D.O.10/20/2023 2:47 PM Dictation Location: [place] [address] Transcribed By: [facility] 10/20/23 1447 Dictated By: Nash Lockwood Jr, DO 10/20/23 1441 Signed By: <Electronically signed by Nash Lockwood Jr, DO in OV> 10/20/23 1447 SCAN AND CBC Collected: 10/20/2023 11:05 AM Status: F Source: [facility] TYPE CODE TESTS RESULT OUT OF RANGE REFERENCE UNITS LAB WBC White Blood Count 9.7 Normal 4.1-10.5 10*3/uL LAB UNWBC Uncorrected WBC 9.7 Normal 4.1-10.5 10*3/uL LAB RBC Red Blood Count 4.52 Normal 3.90-5.60 LAB HGB Hemoglobin 13.3 Normal 13.0-17.0 g/dL LAB HCT Hematocrit 39.9 Normal 38.8-50.0 % LAB MCV Mean Corpuscular Volume 88.3 Normal 83.5-101 fL LAB MCH Mean Corpuscular Hemoglobin 29.4 Normal 27.5-35.2 pg LAB MCHC Mean Corpuscular HGB Conc 33.3 Normal 32.5-35.6 g/dL LAB RDW Red Cell Distribution Width 15.2 High 12.0-14.8 % LAB PLT Platelet Count 117 Low 150-450 10*3/uL LAB MPV Mean Platelet Volume 10.1 Normal 6.6-10.1 fL LAB NE% Neutrophils % (Auto) 71.8 . % LAB LY% Lymphocytes % (Auto) 19.5 . % LAB MO% Monocytes % (Auto) 6.7 . % LAB EO% Eosinophils % (Auto) 1.4 . % LAB BA% Basophils % (Auto) 0.6 . % LAB NRBC% NRBC% 0.1 Normal 0-0.5 /100{WBC} LAB NE# Neutrophils # (Auto) 7.0 Normal 1.8-7.7 10*3/uL LAB LY# Lymphocytes # (Auto) 1.9 Normal 1.00-4.8 10*3/uL LAB MO# Monocytes # (Auto) 0.7 Normal 0.0-0.8 10*3/uL LAB EO# Eosinophils # (Auto) 0.1 Normal 0.0-0.45 10*3/uL LAB BA# Basophils # (Auto) 0.1 Normal 0.0-0.2 10*3/uL LAB RM RBC Morphology Normal Normal LAB PLT EST Platelet Estimate Decreased Normal LAB LGPLT Large Platelets Slight Result Comment: PERFORMED BY : [place] [id number] PATHOLOGIST [employer] NIKITA URIBE M.D. Performed By: #### CEA, SCAN CBC #### [facility] [address] [place] [id number] [facility] CARCINOEMBRYONIC ANTIGEN Collected: 10/20/2023 11:05 AM Status: F Source: [facility] TYPE CODE TESTS RESULT OUT OF RANGE REFERENCE UNITS LAB CEA Carcinoembryonic Antigen 2.2 Normal 0.0-3.0 ng/mL Result Comment: Serial tumor marker results determined by assays using different manufacturers or methods may not be comparable. [facility] speech therapist technician and method: [employer] DXI, 2 SITE IMMUNOENZYMATIC ?SANDWICH? ASSAY. PERFORMED BY: [place] [address] PATHOLOGIST [employer] NIKITA URIBE M.D. Performed By: #### CEA, SCAN CBC #### [place] [id number] [facility] COMPREHENSIVE METABOLIC PANEL Collected: 10/20/2023 1 1:05 AM Status: F Source: [facility] Order Comment: STAT APRIL CT TYPE CODE TESTS RESULT OUT OF RANGE REFERENCE UNITS LAB GLU Glucose 124 High 70-100 mg/dL Result Comment: Random Gluco se Reference Range is dependent on time and content of last meal. Glucose of more than 200 mg/dL in a nonstressed, ambulatory subject supports the diagnosis of Diabetes Mellitus. ADA recommended reference range LAB BUN Blood Urea Nitrogen 13 Normal 7-25 mg/d L LAB CREATT Creatinine 0.82 Normal 0.70-1.30 mg/dL LAB GFReNR Estimated GFR > 60.0 LAB NA Sodium 135 Low 136-145 mmol/L LAB K Potassium 3.8 Normal 3.5-5.1 mmol/L LAB CL Chloride 101 Normal 98-107 mmol/L LAB CO2 Carbon Dioxide 29.1 Normal 21.0-31.0 mmol/L LAB GAP Anion Gap 8.7 Normal 6.0-15.0 LAB CA Calcium 9.1 Normal 8.6-10.3 mg/dL LAB TP Total Protein 7.2 Normal 6.4-8.9 g/dL LAB ALB Albumin Level 3.5 Normal 3.5-5.7 g/dL LAB GLOB Globulin 3.7 g/dL LAB AGRATIO Albumin/Globulin Ratio 0.9 LAB BILIT Bilirubin,Total 0.9 Normal 0.3-1.0 mg/dL LAB AST Aspartate Amino Transferase 46 High 13-39 U/L LAB ALT Alanine Aminotransferase 42 Normal 7-52 U/L LAB ALP Alkaline Phosphatase 101 Normal 34-104 U/L LAB CRCLPHA Creatinine Clr C alc Pharmacy 98.34 Result Comment: PERFORMED BY : [place] [address] PATHOLOGIST [employer] NIKITA URIBE M.D. Performed By: #### CMP #### [facility] [address] [place] [address] ALLERGIES DATE TYPE / CODE NAME / CODE REACTION SEVERITY SOURCE 11/17/2023 Drug Allergy/078595152 (SNOMED CT) codeine/[id number] 0(RXNORM) Rash Unknown [facility] ENCOUNTERS ADMIT/DISCHARGE ACCOUNT NUMBER ADMITTING ENCOUNTER CLASS LOCATION SOURCE 10/23/2023 [id number] Juan, [facility] PAYERS ENCOUNTER GUARANTOR PAYER SUBSCRIBER SOURCE 10/23/[address] [place] [id number]: () Primary Insurance:Caresour cePolicy Number: [id number] shanice Date:[id number] [address]: Sigifredo LearyDOB: [id number] [place] [id number]: () [facility] 10/23/2023 Secondary Insurance:Self PayPolicy Number: Effective Date:2023-08-21 [facility]
--- OUTSIDE RECORDS SUMMARY | 2024-09-01 10:30 | XMS_ITS ---
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 Name Role Phone Ashley Long Primary Care Provider Gal Bender Unavailable [phone] Esther Marx Unavailable [phone] REASON FOR VISIT med check; wants ref for therapy; TRANSPORTATION Encounters Encounter Location Date Provider Diagnosis [facility] [address] [place] [address] 09/01/2024 Esther Marx Plan Of Treatment Next Appt Details Provider Name:Patti Ford, 01/06/2025 02:25:00 PM, [address] [place], [address], Provider Name:Gal woods, 01/06/2025 03:00:00 PM, [address] [facility], [address], Progress Notes * BERENICE WILKSDOB:1965 (59 yo M)Acc No.[id number]:09/01/2024 Progress Notes Patient: BERENICE WHITAKER Provider: Bishnu Marx CNP :1965 A ge:59 Y S ex:Male Date:09/01/2024 Address:[address] [place], [place] [id number] Pcp:Ashley Long Subjective: * Chief Complaints: * 1 . med check; wants ref for therapy; TRANSPORTATION. * Medical History: Objective: * Vitals: Assessment: Plan: * Treatment: * Images: * Electronic signature of SO Felder on 09/04/2024 at 11:34 PM EDT Sign off status: Pending * Provider: Bishnu Marx CNP Date: 09/01/2024 Generated for Yeison cowart/Dorinda/Eddie on: 09/04/2024 11:34 PM EDT
--- OUTSIDE RECORDS SUMMARY | 2024-09-02 06:15 | XMS_ITS ---
Author Organization [facility] Address [address] [place] [address] Care Team Providers Care Plastic Cutter Name Role Phone Ashley Long Primary Care Provider Gal Bender Unavailable [phone] Patti Ford [phone] REASON FOR VISIT IMTIAZ / 11:00 AM / 30 MIN Encounters Encounter Location Date Provider Diagnosis [address] [place] [address] 2024 Patti Ford Plan Of Treatment Next Appt Details Provider Name:Patti Ford, 01/06/2025 02:25:00 PM, [address] [place], [address], Provider Name:Gal woods, 01/06/2025 03:00:00 PM, [address] [place], [address], Progress Notes * BERENICE WILKSDOB:1965 (59 yo M)Acc No.[id number]:09/02/2024 Patient: BERENICE WHITAKER Appointment Provider: Jaen Claude Ford :1965 A ge:59 Y S ex:Male Date:09/02/2024 Address:[address] [place], [place] [id number] Pcp:Ashley Long Subjective: * Chief Complaints: * 1 . IMTIAZ / 11:00 AM / 30 MIN. * Medical History: Objective: * Vitals: Assessment: Plan: * Treatment: * Images: * Electronic signature of JERROD Nguyen FNP on 09/04/2024 at 11:33 PM EDT Sign off status: Pending * Appointment Provider: Jean Claude Ford Date: 0 09/02/2024 Generated for Yeison cowart/Dorinda/Eddie on: 0 09/04/2024 11:33 PM EDT
--- OUTSIDE RECORDS SUMMARY | 2024-09-02 07:00 | XMS_ITS ---
Author Organization [facility] Address [address] [place] [address] Care Team Providers Care Die Lay Out Worker Name Role Phone EthanAshley bustamante Primary Care Provider [phone] Gal Bender Unavailable [phone] Esther Marx Unavailable [phone] Allergies No Known Allergies REASON FOR VISIT med check; TRANSPORTATION Medications Medication SIG (Take, Route, Fr equency, Duration) Notes Start Date End Date Status Pregabalin 300 MG TAKE 1 CAPSULE BY MO UT TWICE A DAY Oral for 30 Days Active Pregabalin 300 MG 1 capsule Orally twi ce a day for 30 days 09/02/2024 11/01/2024 Active Social History Tobacco Use: Social History Observation Description Date Details (start date - stop date) Current Smoker NA - NA Depression Screening (PHQ-9): Question Answer Notes Little interest or pleasure in doing things More than half the days Feeling down, depressed, or hopeless Several day s Trouble falling or staying a sleep, or sleeping too much Nearly every day Feeling tired or having little energy Several da ys Poor appetite or overeating More than half the d ays Feeling bad about yourself-o r that you are a failure or have let yourself or your family down Nearly every day Trouble concentrating on thi ngs, such as reading the newspaper or watching television Nearly every day Moving or speaking so slowly that other people could have noticed. Or the opposite being so fidgety or restless that you have been moving around a lot more than usual More than half the days Thoughts that you would be b sola off , or of hurting yourself in some way Not at all Total Score 17 Intepretation Moderately severe depression AUDIT-C (Standard) Question Answer Notes Did you have a drink containing alcohol in the p ast year? No Points 0 Interpretation Negative Tobacco Control (Standard) Question Answer Notes Tobacco use: Current smoker How often do you smoke cigarettes? Some days, bu t not every day How many cigarettes a day do you smoke? 5 or les s How soon after you wake up d o you smoke your first cigarette? After 60 minutes Are you interested in quitting? Ready to quit Problems Problem Type SNOMED Code ICD Code Onset Dates Problem Status W/U Status Risk Notes Problem [id number] Neuropathy (G62.9) Active confirmed Vital Signs Height 70 in 09/02/2024 Weight 150.2 lbs 09/02/2024 BMI 21.55 kg/m2 09/02/2024 Temperature 98.2 degrees Fahrenheit 09/03/19 25 Blood pressure systolic 135 mm Hg 09/03/19 25 Blood pressure diastolic 82 mm Hg 025 Oximetry 97 % 09/02/2024 Heart Rate 100 /min 09/02/2024 Encounters Encounter Location Date Provider Diagnosis [address] [address] 09/02/2024 Esther Marx Nicotine dependence, unspecified, uncomplicated F17.200 ; Degeneration of intervertebral disc of lumbar region with discogenic back pain and lower extremity pain M51.362 ; Personal history of traumatic brain injury Z87.820 and Neuropathy G62.9 Assessments Encounter Date Diagnosis (ICD Code) Assessment Notes Treatment Notes Treatment Clinical Notes Section Notes 09/02/2024 Nicotine dependence, unspecified, uncomplicated (ICD-10 - F17.200) 09/02/2024 Degeneration of intervertebral disc of lumbar region with discogenic back pain and lower extremity pain (ICD-10 - M51.362) Continue medication as we discussed and recommend additional complimentary treatments such as low impact exercises, stretching, topical treatments, ice, heat to areas, etc. These often can help additionally to medication. It is important to also continue to move as much as possible to prevent loss of function 09/02/2024 Personal history of traumatic brain injury (ICD-10 - Z87.820) 09/02/2024 Neuropathy (ICD-10 - G62.9) Plan Of Treatment Medication Medication Name Sig Start Date Stop Date Notes Pregabalin 300 MG 1 capsule Orally twi ce a day for 30 days 09/02/2024 11/01/2024 Treatment Notes Assessment Notes Degeneration of intervertebr al disc of lumbar region with discogenic back pain and lower extremity pain Continue medication as we discussed and recommend additional complimentary treatments such as low impact exercises, stretching, topical treatments, ice, heat to areas, etc. These often can help additionally to medication. It is important to also continue to move as much as possible to prevent loss of function Next Appt Details Follow Up: 2 Months, Reason: Provider Name:Patti Torres Logan, 01/06/2025 02:25:00 PM, [address] [place], [address], Provider Name:Gal woods, 01/06/2025 03:00:00 PM, [address] [place], [address], Progress Notes * BERENICE WILKSDOB:1965 (59 yo M)Acc No.[id number]:09/02/2024 Progress Notes Patient: BERENICE WHITAKER Provider: Bishnu Marx CNP :1965 A ge:59 Y S ex:Male Date:09/02/2024 Address:[address] [place], [place] [address] Pcp:Ashley Long Subjective: * Chief Complaints: * m ed check; TRANSPORTATION * HPI: C onstitutional: Pt here today with med check, Pt needs Lyrica refilled Pt has history of cancer (remission) and a history of neuropathy from falling off a roof several years ago that resulted in spinal damage. Patient had several surgeries to repari the issue but has permanent damage and TBI Pt has no concerns. D epression Screening: PHQ-2 (2015 Edition) L ittle interest or pleasure in doing things??Not at all F eeling down, depressed, or hopeless? N ot at all T otal Score 0 * ROS: G eneral Review of Systems: General D enies fever, chills, weight loss. E yes D enies vision changes, no double vision or blurry vision. . H EENT D enies sore throat, ear pain., Denies fevers , chills, Denies nasal congestion, or pressure, Denies hoarseness, change in voice, difficulty swallowing. C ardiovascular D enies chest pain, palpitations, exertional dyspnea. R espiratory D enies cough, dyspnea, wheezing, sputum production, hemoptysis. G astrointestinal D enies abdominal pain, nausea, vomiting, diarrhea, or constipation. Denies blood in stool or changes in bowel habits.. G enitourinary D enies urgency, frequency, dysuria, hematuria. M usculoskeletal H PI. D ermatology D enies rashes or lesions. N eurological H PI. P sychiatric H PI. H em/Lymph H PI. * Medical History: * Surgical History: e sophageal cancer back surgery x's 4 * Hospitalization/Major Diagno stic Procedure: s ee above * Family History: F ather: , diagnosed with Heart Disease. M other: , diagnosed with Stroke.? * Social History: G eneral: D epression Screening (PHQ-9) L ittle interest or pleasure in doing things?More than half the days F eeling down, depressed, or hopeless S everal days T rouble falling or staying asleep, or sleeping too much N early every day F eeling tired or having little energy S everal days P oor appetite or overeating M ore than half the days F eeling bad about yourself-or that you are a failure or have let yourself or your family down N early every day T rouble concentrating on things, such as reading the newspaper or watching television N early every day M oving or speaking so slowly that other people could have noticed. Or the opposite being so fidgety or restless that you have been moving around a lot more than usual M ore than half the days T houghts that you would be better off , or of hurting yourself in some way N ot at all T otal Score 1 7 I ntepretation M oderately severe depression D rug/Alcohol: A NIELS-C (Standard) D id you have a drink containing alcohol in the past year? N o P oints 0 I nterpretation N egative T obacco Use: T obacco Control (Standard) T obacco use: C urrent smoker H ow often do you smoke cigarettes? S ome days, but not every day H ow many cigarettes a day do you smoke? 5 or less H ow soon after you wake up do you smoke your first cigarette? A fter 60 minutes A re you interested in quitting? R dajuan to quit * Medications: T akingPregabalin 300 MG Capsule TAKE 1 CAPSULE BY MOUTH TWICE A DAY Oral Medication List reviewed and reconciled with the patientTaking Pregabalin 300 MG Capsule TAKE 1 CAPSULE BY MOUTH TWICE A DAY Oral Medication List reviewed and reconciled with the patient * Allergies: N .K.D.A.no[Allergies Verified] Objective: * Vitals: H t: 70 in, Wt: 150.2 lbs, BMI:21.55Index, Temp: 98.2 F, BP: 135/82 mm Hg, SaO2:97%, HR: 100 /min. * Examination: G eneral Examination: GENERAL APPEARANCE: A lert and oriented, in no acute distress, pleasant, flat affect. FACE: n o frontal or maxillary sinus tendernss. EYES: n o discharge, no nystagmus, pupils, equal, round, reactive to light and accomodation (PERRLA). HEENT: N o pharyngeal erythema, or exudates. ORAL CAVITY: d entition, tongue, oral mucosa normal. NECK/THYROID: C ervical lymph nodes: normal. CARDIOVASCULAR: r egular rate and rhythm. RESPIRATORY: c lear to auscultation bilaterally, good breath sounds bilaterally, no wheezes, rhonchi, rales. GASTROINTESTINAL: A bdomen Soft. EXTREMITIES: p atient walks with abnormal gait due to history of injury. He states this is his baseline. Assessment: * Assessment: 1. D egeneration of intervertebral disc of lumbar region with discogenic back pain and lower extremity pain - M51.362 (Primary) 2 . N icotine dependence, unspecified, uncomplicated - F17.200 3 . P ersonal history of traumatic brain injury - Z87.820 & #160; 4 . N europathy - G62.9 Plan: * Treatment: * Procedure Codes: 3 079F DIAST BP 80-89 MM [id number] SYST BP GE 130 - 139MM [id number] RVW MEDS BY RX/ IN RCRD * Preventive Medicine: COUNSELING: C ommunication to patient: Counseling for Nutrition Provided Y es Counseling for Physical Activity Provided Y es BMI management provided Y es Nutrition/Dietary Counseling provided?Yes Counselled patient on smoking cessation?Yes (must enter date) Education Provided 0 09/02/2024 Counseled the Patient on smoking cessation, education provided 0 09/02/2024 * Follow Up: 2 Months * Images: * Sign off status: Completed true * Provider: Bishnu Marx CNP Date: 0 09/02/2024 Generated for Yeison cowart/Dorinda/Eddie on: 0 09/04/2024 11:33 PM EDT History and Physical Notes * HPI (History of Present Illness) Category Sub-Category Detail Notes Category Not es Depression Screening PHQ-2 (2015 Edition) Little interest or pleasure in doing things?: Not at all Feeling down, depressed, or hopeless?: N ot at all Total Score: 0 Examination Category Sub-Category Detail Notes Category Not es General Examination HEENT: No pharyngeal erythem a, or exudates NECK/THYROID: Cervical lymph nodes : normal CARDIOVASCULAR: regular rate and rhy thm RESPIRATORY: clear to auscultatio n bilaterally, good breath sounds bilaterally, no wheezes, rhonchi, rales GASTROINTESTINAL: Abdomen Soft EXTREMITIES: patient walks with a bnormal gait due to history of injury. He states this is his baseline GENERAL APPEARANCE: Alert and oriented, in no acute distress, pleasant, flat affect ORAL CAVITY: dentition, tongue, o ral mucosa normal FACE: no frontal or maxill pavel sinus tendernss EYES: no discharge, no nys tagmus, pupils, equal, round, reactive to light and accomodation (PERRLA)
[2024-09-04 23:27] VITALS: BP 143/98; PULSE 136; TEMP 36.7; O2SAT 98; BMI 21.5
--- OUTSIDE RECORDS SUMMARY | 2024-09-04 23:33 | XMS_ITS | Patient Health Record ---
Author Organization [facility] Address [address] [place], [place] [id number] Support Name Relationship Address Phone MirnaAmpar[place] [address] U navailable Sigifredo Leary Guarantor Unknown [phone] Reason For Referral No Information Plan Of Treatment No Information Insurance Providers Payer Name Payer Address Payer Phone Subscriber Number Group Number Insured Name Patient Relationship to Insured Coverage Start Date Coverage End Date [facility] [address] [place], [place] [id number] Sigifredo Leary Self - patient is the insured
--- OUTSIDE RECORDS SUMMARY | 2024-09-04 23:33 | XMS_ITS | Referral Summary ---
Author Organization [facility] Address [address] [place] [address] Care Team Providers Care Senior Mechanical Development Engineer Name Role Phone Albert Wong MD Primary Care Provider [phone] Social History Tobacco Use Types Packs/Day Years Used Date Smoking Tobacco: Never Assessed [place] Safety & Environment Answer Date Rec orded Fear of Current or Ex-Partner Not on file Emotionally Abused Not on file 06/05/2023 Physically Abused Not on file 06/05/2023 Sexually Abused Not on file 06/05/2023 Physically or Sexually Abused Not on file Sex and Gender Information Value Date Recorded Sex Assigned at Not on file Gender Identity Not on file Sexual Orientation Not on file Last Filed Vital Signs Vital Sign Reading Time Taken Comments Blood Pressure 119/74 06/20/2020 1:55 PM EST Pulse 116 06/20/2020 1:55 PM EST Temperature 36.9 C (98.4 F) 06/08/2020 11:14 AM EST Respiratory Rate 20 06/08/2020 11:14 AM EST Oxygen Saturation 93% 06/08/2020 11:14 AM EST Inhaled Oxygen Concentration - - Weight 73.9 kg (163 lb) 06/20/2020 1:55 PM EST Height 177.8 cm (5' 10 ) 06/20/2020 1:55 PM EST Body Mass Index 23.39 06/20/2020 1:55 PM EST Plan of Treatment Not on file Care Teams Senior Mechanical Development Engineer Relationship Specialty Start Date End Date Albert Wong MD [address] [place] [address] PCP - General 02/04/22
--- OUTSIDE RECORDS SUMMARY | 2024-09-04 23:34 | XMS_ITS | Clinical Summary ---
Author Organization [facility] Address [address] [place] [address] Care Team Providers Care Collision Estimator Name Role Phone Albert Wong MD Primary Care Provider [phone] Social History Tobacco Use Types Packs/Day Years [...] 06/20/2020 1:55 PM EST Plan of Treatment Health Maintenance Due Date Last Done Comments CT Colonography 1965 Colonoscopy 1965 Colorectal Cancer Screening 1965 FIT-DNA 1965 FIT 1965 FOBT 1965 Sigmoidoscopy 1965 Pneumococcal Vaccine: Pediatrics (0 to 5 Years) and At-Risk Patients (6 to 64 Years) (1 of 2 - PCV) 1969 Depression Screening 1975 Adult Tetanus 1985 Zoster Vaccines (1 of 2) 2013 COVID-19 Vaccine ( - 2023-2 5 season) 2023 Influenza Vaccine (Season Ended) 2024 01/20/2020, 02/16/2019 HIB Vaccines Aged Out No longer eligi ble based on patient's age to complete this topic HPV Vaccines Aged Out No longer eligi ble based on patient's age to complete this topic IPV Vaccines Aged Out No longer eligi ble based on patient's age to complete this topic Meningococcal B Vaccine Aged Out No l onger eligible based on patient's age to complete this topic Meningococcal Vaccine Aged Out No дмитрий kwaku eligible based on patient's age to complete this topic Rotavirus Vaccines Aged Out No longer eligible based on patient's age to complete this topic Care Teams Collision Estimator Relationship Specialty Start Date End Date Albert Wong MD [address] [place] [address] PCP - General 02/04/22
--- OUTSIDE RECORDS SUMMARY | 2024-09-04 23:34 | XMS_ITS | Patient Health Record ---
Author Organization [facility] ([place], [place]) Servic es Address [address] [place] [address] Care Team Providers Care Eating Disorder Specialist Name Role Phone Ashley Long Primary Care Provider [phone] Napoleon Gal Unavailable [phone] Patti Ford Unavailable [phone] Pinky Horowitz Unavailable [phone] Esther Marx Unavailable [phone] Allergies No Known Allergies Reason For Referral No Information Medications Medication SIG (Take, Route, Fr equency, [...] Problem Status W/U Status Risk Notes Problem Tobacco user (803707721) Nicotine dependence, unspecified, uncomplicated (F17.200) Active confirmed Problem [id number] Neuropathy (G62.9) Active confirmed Vital Signs Heart Rate 100 /min 09/02/2024 Temperature 98.2 degrees Fahrenheit 09/02/2024 Oximetry 97 % 09/02/2024 Blood pressure diastolic 82 mm Hg 09/02/2024 Height 70 in 09/02/2024 Blood pressure systolic 135 mm Hg 09/02/2024 Weight 150.2 lbs 09/02/2024 BMI 21.55 kg/m2 09/02/2024 Encounters Encounter Location Date Provider Diagnosis [facility] [address] [place] [address] [facility] [address] [place] [address] 04/21/2024 Esther Marx Degeneration of intervertebral disc of lumbar region with discogenic back pain and lower extremity pain M51.[address] [place] [address] 02/12/2024 Esther Marx Nicotine dependence, unspecified, uncomplicated F17.200 ; Degeneration of intervertebral disc of lumbar region with discogenic back pain and lower extremity pain M51.362 and Personal history of traumatic brain injury Z87.820 [facility] [address] [place] [address] 09/02/2024 Esther Marx Nicotine dependence, unspecified, uncomplicated F17.200 ; Degeneration of intervertebral disc of lumbar region with discogenic back pain and lower extremity pain M51.362 ; Personal history of traumatic brain injury Z87.820 and Neuropathy G62.9 [place] [address] [facility] [place] [address] 02/02/2024 Gal Bender Encounter for dental examination and cleaning with abnormal findings Z01.21 ; Other dental procedure status Z98.818 ; Cracked tooth K03.81 and Complete loss of teeth, unspecified cause, class I K08.101 [facility] [address] [address] 05/06/2024 Gal Bender Cracked tooth K03.81 [facility] [address] [place] [address] 05/06/2024 Pinky Horowitz Lack of access to transportation Z91.[address] [place] [address] 02/02/2024 Pinky Horowitz Lack of access to transportation Z91.[address] [place] [address] 09/02/2024 Patti Vann Encounter Date Diagnosis (ICD Code) Assessment Notes Treatment Notes Treatment Clinical Notes Section Notes 04/21/2024 Degeneration of intervertebral disc of lumbar region with discogenic back pain and lower extremity pain (ICD-10 - M51.362) 09/02/2024 Nicotine dependence, unspecified, uncomplicated (ICD-10 - [...] as possible to prevent loss of function 05/06/2024 Cracked tooth (ICD-10 - K03.81) 05/06/2024 Lack of access to transportation (ICD-10 - Z91.89) Pt transported to and from appointment 02/12/2024 Nicotine dependence, unspecified, uncomplicated (ICD-10 - F17.200) 02/12/2024 Degeneration of intervertebral disc of lumbar region with discogenic back pain and lower extremity pain (ICD-10 - M51.362) Patient failed instant urine drug screen. He admitted to [place] that he may have Suboxone, Benzo positive screening and is not prescribed any of these medications. Will send urine out to confirm result incase it is false positive. Recommend patient continue with what medications he currently has in stock until we have results of [place] results. Once we have the results and if they confirm the patient was positive, will not prescribe controlled substances for patient 02/02/2024 Encounter for dental examination and cleaning with abnormal findings (ICD-10 - Z01.21) 02/02/2024 Lack of access to transportation (ICD-10 - Z91.89) Pt transported to and from appointment 02/02/2024 Other dental procedure status (ICD-10 - Z98.818) 02/12/2024 Personal history of traumatic brain injury (ICD-10 - Z87.820) 09/02/2024 Personal history of traumatic brain injury (ICD-10 - Z87.820) 09/02/2024 Neuropathy (ICD-10 - G62.9) 02/02/2024 Cracked tooth (ICD-10 - K03.81) 02/02/2024 Complete loss of teeth, unspecified cause, class I (ICD-10 - K08.101) 02/12/2024 Other Body Mass Index : Care Instructions material was printed Plan Of Treatment Next Appt Details Provider Name:Patti Ford, 01/06/2025 02:25:00 PM, [address] [place], [address], Provider Name:Gal woods, 01/06/2025 03:00:00 PM, [address] [place], [address], Insurance Providers Payer Name Payer Address Payer Phone Subscriber Number Group Number Insured Name Patient Relationship to Insured Coverage Start Date Coverage End Date [facility] Medicaid [address] [place] [address] [id number] BERENICE WILKS Self - patient is the insured 4 [employer] [address] [place] [address] [id number] BERENICE WILKS Self - patient is the insured 4 [employer] [facility] [address] [place] [address] [id number] BERENICE WILKS Self - patient is the insured 4 Dental [employer]rap A[employer] [facility] [address] [place] [address] [id number] BERENICE WILKS Self - patient is the insured 4 .[facility] [address] [place] [address] [phone] [id number] BERENICE WILKS Self - patient is the insured 4 Medical (General) History Medical History History ICD Code anxiety chronic back pain esophageal cancer radiation/chemo Surgical History Surgery Date(Month/Year) esophageal cancer back surgery x's 4 Hospitalization History Reason Date(Month/Year) see above
--- OUTSIDE RECORDS SUMMARY | 2024-09-04 23:34 | XMS_ITS | Patient Health Record ---
Author Organization [facility] in [place] Address [address] [place] [address] Care Team Providers Care Warper Tender Name Role Phone None, Unknown or Primary Care Provider Unavailab Celina Gilliam Unavailable [phone] Reason For Referral No Information Problems Problem Type SNOMED Code ICD Code Onset Dates Problem Status W/U Status Risk Notes Problem Hypomagnesemia (395587951) Hypomagnesemia (E83.42) Active confirmed Problem Polysubstance abuse (284355177) Polysubstance abuse (F19.10) Active confirmed Plan Of Treatment No Information Insurance Providers Payer Name Payer Address Payer Phone Subscriber Number Group Number Insured Name Patient Relationship to Insured Coverage Start Date Coverage End Date [employer] [place] [employer] [address] [place] [address] [id number] Sigifredo Louis Self - patient is the insured
[2024-09-04] MEDS: DIPHENHYDRAMINE HCL 50 MG/ML VIAL IVP (23:51)
--- NOTE | 2024-09-04 23:52 | ECG_ITS ---
[facility] Test Date: 2024-09-04 Pat Name: BERENICE BLANDON Department: Room: - Gender: Male Sexual Assault Response Coordinator: : 1965 Requested By: Harjeet Leal Order Number: [id number] Reading MD: JULEE EDMOND M.D. Measurements Intervals [place] Rate: 138 P: 130 IL: 170 QRS: 96 QRSD: 88 T: 62 QT: 312 QTc: 393 Interpretive Statements SINUS TACHYCARDIA 4068 Nonspecific [place] abnormality 7102 Moderate right axis deviation 9140 abnormal rhythm ECG Compared to ECG 07/19/2024 19:40:31 No significant changes Electronically Signed On 09-05-2024 13:56:51 EDT by JULEE EDMOND M.D.
[2024-09-04 23:58] VITALS: PULSE 138
[2024-09-05] VITALS (11 sets, daily range): PULSE 138; O2SAT 94–98
[2024-09-05] MEDS: MULTIVIT INFUSN,ADULT 4,VIT K 10 ML, FOLIC ACID 1 MG, THIAMINE HCL 100 MG in DEXTROSE 5... 1000 ML IV (00:06)
--- NOTE | 2024-09-05 00:43 | ED.ALCOHOL1 ---
HPI - Alcohol General Chief Complaint: Abdominal Pain Stated Complaint: constipation Time Seen by Provider: 09/04/24 23:31 Source: patient Mode of arrival: ambulance Limitations: other Limitations comment: etoh intoxication History of Present Illness HPI narrative: cc - intoxicated Pt's niece apparently called 911 to bring the patient to the ED at [facility] for evaluation. Pt told EMS that he had no BM for 15 days but they also reported that he was drunk . On arrival, the patient almost immediately asked to be discharged home. He appeared intoxicated/altered but would answer all questions. He did not complain of constipation to me. he said that nothing is bothering me . Related Data Home Medications ?Medication ?Instructions ?Recorded ?Confirmed No Known Home Medications 03/11/24 07/20/24 Allergies Allergy/AdvReac Type Severity Reaction Status Date / Time No Known Drug Allergies Allergy Verified 09/04/24 23:33 [facility] Medical History (Updated 09/05/24 @ 06:36 by Harjeet Leal) Depression ?F32.A - Depression, unspecified (ICD-10) Poor concentration ?R41.840 - Attention and concentration deficit (ICD-10) Esophageal cancer ?C15.9 - Malignant neoplasm of esophagus, unspecified (ICD-10) Back pain with history of spinal surgery ?M54.9 - Dorsalgia, unspecified (ICD-10) ?Z98.890 - Other specified postprocedural states (ICD-10) Family History Mother Family history of COPD (chronic obstructive pulmonary disease) Brother Family history of cancer Family history of diabetes mellitus Uncle Family history of myocardial infarction Unknown Family history of hypertension Family history of stroke Social History Within the past year, how often did you have a drink containing alcohol: monthly or less Within the past year, how many standard drinks containing alcohol did you have on a typical day: 3 or 4 Within the past year, how often did you have six or more drinks on one occasion: less than monthly Total score: 3 Score interpretation: A score less than 4 is consistent with normal alcohol consumption. Smoking status: Light tobacco smoker Non-prescribed substance use: cannabis (any form), amphetamines/methamphetamines and opiods/painkillers Highest level of school completed/degree received: some college, no degree Are you now , , , , never or living with a partner: don't know Little interest or pleasure in doing things: more than half the days Feeling down, depressed, or hopeless: more than half the days Feel stressed/tense/nervous/anxious/difficulty sleeping: rather much Life stressors: financial matters Do you think of yourself as: straight/heterosexual Gender Identity: male Exam Narrative Exam Narrative: Nurses notes and vital signs reviewed and patient is not hypoxic. afebrile General: In no apparent distress. Skin: Warm, dry, no pallor noted. No rash. Head: Normocephalic, atraumatic. Neck: Supple, non-tender. Eye: Pupils are equal, round and EOMI. No scleral icterus. Ears, Nose, Mouth, and Throat: TM are clear, no posterior oropharynx erythema or nasal mucosal hypertrophy, uvula is mid-line Oral mucosa is dry Cardiovascular: tachycardia. Respiratory: No accessory muscle use or respiratory distress. Lungs are clear to auscultation, no wheezing, rales or rhonchi Chest Wall: no tenderness Back: No midline thoracic or lumbar vertebral tenderness. No CVA tenderness Musculoskeletal: normal ROM, no calf or popliteal tenderness, no lower extremity edema/swelling GI: Abdomen is soft, non-distended. Normal bowel sounds. No masses appreciated. No tenderness to palpation. No rebound, guarding, or rigidity noted. Neurological: A&O x4. No cranial nerve dysfunction observed. No truncal ataxia. Moves all extremities. Sensation intact. Psychiatric: Interactive but appears intoxicated. Flat affect. Constitutional Vital Signs, click to edit/add: Last Vital Signs Temp 98.1 F 09/04/24 23:27 Pulse 138 H 09/04/24 23:58 Resp 20 09/04/24 23:58 BP 143/98 H 09/04/24 23:27 Pulse Ox 97 09/05/24 05:30 O2 Del Method Room Air 09/04/24 23:27 Course Vital Signs Vital signs: Vital Signs Temperature 98.1 F 09/04/24 23:27 Pulse Rate 136 H 09/04/24 23:27 Respiratory Rate 20 09/04/24 23:27 Blood Pressure 143/98 H 09/04/24 23:27 Pulse Oximetry 98 09/04/24 23:27 Oxygen Delivery Method Room Air 09/04/24 23:27 Temperature 98.1 F 09/04/24 23:27 Pulse Rate 138 H 09/04/24 23:58 Respiratory Rate 20 09/04/24 23:58 Blood Pressure 143/98 H 09/04/24 23:27 Pulse Oximetry 97 09/05/24 05:30 Oxygen Delivery Method Room Air 09/04/24 23:27 MDM - Alcohol MDM Narrative Medical decision making narrative: Patient was placed on cardiac care unit nurse and EKG obtained. Through the peripheral IV I ordered that he continue to receive the saline that had been started by EMS and that he also received a banana bag. But he tore his IV out before everything was completed. He got three quarters of the banana bag and most of the normal saline IV fluid. He refused blood draw. He was fidgety and trying to remove some of the cardiac care unit nurse, so I ordered him to receive 50 mg of Benadryl IV to try and see if that would help him to sleep, while allowing him to be monitored until he was more sober. Urine was obtained and tested positive for buprenorphine metabolites, tricyclics, amphetamine and methamphetamine. His tachycardia is likely associated with his methamphetamine and amphetamine use -although we cannot verify since he refuses to give blood at this time. UA did not reveal acute infection He eventually pulled off the cardiac care unit nurse and pulled out his peripheral IV. We let him sleep for couple of hours, checking on him regularly while in room 4, close to the nurses station where he could be observed. At 5 AM, he was agreeable to get the IV placed and to have blood drawn. He was ordered to receive another liter of normal saline IV fluid EtOH level at 0528 = 112. K+ slightly low at 3.3 - he was given 40meq oral potassium. @0630 - pt much more awake and speech is clear and coherent. WE tried to get phone numbers and contact info for his brother and/or other family members but were unsuccessful. he is currently awaiting a sober ride home or a decrease in ethanol level to an acceptable number to be safely discharged. Lab Data Attestation: I reviewed the patient's lab results. Labs: Lab Results 09/05/24 09/05/24 Range/Units 00:40 05:28 WBC 6.9 (4.0-11.0) 10^3/uL RBC 4.24 L (4.70-6.10) 10^6/uL Hgb 12.8 L (14.0-18.0) g/dL Hct 38.3 L (42.0-54.0) % MCV 90.3 (80.0-94.0) fL MCH 30.2 (25.9-34.0) pg MCHC 33.4 (29.9-35.2) g/dL RDW 16.4 H (11.0-15.0) % Plt Count 185 (150-450) 10^3/uL MPV 10.8 (9.5-13.5) fL Neut % (Auto) 68.1 (43.0-75.0) % Lymph % (Auto) 22.7 (20.5-60.0) % [facility] % (Auto) 8.4 (1.7-12.0) % Eos % (Auto) 0.3 L (0.9-7.0) % Baso % (Auto) 0.4 (0.2-2.0) % Neut # (Auto) 4.7 (1.4-6.5) 10^3/uL Lymph # (Auto) 1.6 (1.2-3.8) 10^3/uL [facility] # (Auto) 0.6 (0.3-0.8) 10^3/uL Eos # (Auto) 0.0 (0.0-0.7) 10^3/uL Baso # (Auto) 0.0 (0.0-0.1) 10^3/uL Abs Immat Gran (auto) 0.01 (0.00-0.03) 10^3/uL Imm/Tot Granulo (auto) 0.1 (0.0-0.5) % Sodium 144 (136-145) mmol/L Potassium 3.3 L (3.5-5.1) mmol/L Chloride 106 (98-107) mmol/L Carbon Dioxide 30.8 (21.0-32.0) mmol/L Anion Gap 10.5 BUN 5.0 L (7.0-18.0) mg/dL Creatinine 0.63 L (0.70-1.30) mg/dL Est GFR ( Amer) >60 (>=60 mL/min/1.73m^2) Est GFR (Non-Af Amer) >60 (>=60 mL/min/1.73m^2) BUN/Creatinine Ratio 7.9 Glucose 122 H (74-106) mg/dL Lactate 2.3 H* (0.4-2.0) mmol/L Calcium 8.5 (8.5-10.1) mg/dL Total Bilirubin 0.6 (0.2-1.0) mg/dL AST 45 H (15-37) U/L ALT 30 (16-63) U/L Alkaline Phosphatase 153 H (46-116) U/L Total Protein 7.0 (6.4-8.2) g/dL Albumin 2.7 L (3.4-5.0) g/dL Globulin 4.3 g/dL Albumin/Globulin Ratio 0.6 Urine Color Lt. yellow (YELLOW) Urine Clarity Clear (CLEAR) Urine pH 6.0 (5.0-9.0) Ur Specific [place] 1.010 (1.005-1.025) Urine Protein Negative (NEG/TRACE) mg/dL Urine Glucose (UA) 100 A (NEGATIVE) mg/dL Urine Ketones Negative (NEGATIVE) mg/dL Urine Occult Blood Negative (NEGATIVE) Urine Nitrite Negative (NEGATIVE) Urine Bilirubin Negative (NEGATIVE) Urine Urobilinogen 2.0 A (0.2-1.0) EU/dL Ur Leukocyte Esterase Negative (NEGATIVE) Urine Opiates Screen Negative (NEGATIVE) Ur Buprenorphine Scrn Positive A (NEGATIVE) Ur Oxycodone Screen Negative (NEGATIVE) Urine Methadone Screen Negative (NEGATIVE) Ur Barbiturates Screen Negative (NEGATIVE) U Tricyclic Antidepress Positive A (NEGATIVE) Ur Phencyclidine Scrn Negative (NEGATIVE) Ur Amphetamines Screen Positive A (NEGATIVE) U Methamphetamines Scrn Positive A (NEGATIVE) U Benzodiazepines Scrn Negative (NEGATIVE) Urine Cocaine Screen Negative (NEGATIVE) U Cannabinoids Screen Negative (NEGATIVE) Ethanol Quant 112 mg/dL ECG Data Attestation: I personally reviewed and interpreted this ECG as follows: Interpretation: EKG interpretation: Emergency Department physician interpretation. Sinus tachycardia at 138bpm. Moderate right axis deviation, nonspecific T wave changes, no ST segment elevation or depression. Discharge Plan Discharge Patient Disposition: Still a Patient
[2024-09-05 00:57] LABS: Bilirubin Urine NEGATIVE (NEGATIVE); Blood Urine NEGATIVE (NEGATIVE); Clarity Urine CLEAR (CLEAR); Color Urine LT. YELLOW (YELLOW); Glucose Urine UA 100 mg/dL (NEGATIVE); Ketones Urine NEGATIVE (NEGATIVE); Leukocyte Esterase Urine NEGATIVE (NEGATIVE); Nitrite Urine NEGATIVE (NEGATIVE); Protein Urine NEGATIVE (NEG/TRACE)
[2024-09-05 01:02] LABS: Urine Microscopic Indicated NO
[2024-09-05 01:08] LABS: Amphetamine Screen Urine POSITIVE (NEGATIVE); Barbiturates Screen Urine NEGATIVE (NEGATIVE); Benzodiazepines Screen Urine NEGATIVE (NEGATIVE); Buprenorphine Screen Urine POSITIVE (NEGATIVE); Cannabinoid Screen Urine NEGATIVE (NEGATIVE); Cocaine Screen Urine NEGATIVE (NEGATIVE); Methadone Screen Urine NEGATIVE (NEGATIVE); Methamphetamines Screen Urine POSITIVE (NEGATIVE); Opiate Screen Urine NEGATIVE (NEGATIVE); Oxycodone Screen Urine NEGATIVE (NEGATIVE); Phencyclidine Screen Urine NEGATIVE (NEGATIVE); Tricyclic Antidepressant Urine POSITIVE (NEGATIVE)
[2024-09-05] MEDS: LORAZEPAM 1 MG TABLET PO (02:11)
[2024-09-05 05:40] LABS: Basophils Percent Auto 0.4 % (0.2-2.0); Eosinophils Percent Auto 0.3 % (0.9-7.0); Hematocrit 38.3 % (42.0-54.0); Hemoglobin 12.8 g/dL (14.0-18.0); Immature Granulocytes Abs Auto 0.01 10^3/uL (0.00-0.03); Immature Granulocytes Pct Auto 0.1 % (0.0-0.5); Lymphocytes Absolute Auto 1.6 10^3/uL (1.2-3.8); Lymphocytes Percent Auto 22.7 % (20.5-60.0); Mean Corpuscular HGB Conc 33.4 g/dL (29.9-35.2); Mean Corpuscular Hemoglobin 30.2 pg (25.9-34.0); Mean Corpuscular Volume 90.3 fL (80.0-94.0); Mean Platelet Volume 10.8 fL (9.5-13.5); Monocytes Absolute Auto 0.6 10^3/uL (0.3-0.8); Monocytes Percent Auto 8.4 % (1.7-12.0); Neutrophils Absolute Auto 4.7 10^3/uL (1.4-6.5); Neutrophils Percent Auto 68.1 % (43.0-75.0); Platelet Count 185 10^3/uL (150-450); Red Blood Count 4.24 10^6/uL (4.70-6.10); Red Cell Distribution Width 16.4 % (11.0-15.0); White Blood Count 6.9 10^3/uL (4.0-11.0)
[2024-09-05] MEDS: 0.9 % SODIUM CHLORIDE 1,000 ML 1000 ML IV (05:40)
[2024-09-05] MEDS: PANTOPRAZOLE SODIUM 40 MG VIAL IV (05:40)
[2024-09-05] MEDS: MAGNESIUM CITRATE 296 ML SOLUTION PO (05:41)
[2024-09-05 05:55] LABS: Alanine Aminotransferase 30 U/L (16-63); Albumin Globulin Ratio 0.6; Albumin Level 2.7 g/dL (3.4-5.0); Alkaline Phosphatase 153 U/L (46-116); Anion Gap 10.5; Aspartate Amino Transferase 45 U/L (15-37); BUN Creatinine Ratio 7.9; Bilirubin Total 0.6 mg/dL (0.2-1.0); Calcium 8.5 mg/dL (8.5-10.1); Carbon Dioxide 30.8 mmol/L (21.0-32.0); Chloride 106 mmol/L (98-107); Estimated GFR (African America >60 (>=60 mL/min/1.73m^2); Estimated GFR (Non-African Ame >60 (>=60 mL/min/1.73m^2); Ethanol 112 mg/dL; Globulin 4.3 g/dL; Glucose 122 mg/dL (74-106); Potassium 3.3 mmol/L (3.5-5.1); Sodium 144 mmol/L (136-145)
[2024-09-05 06:16] LABS: Lactate/Lactic Acid 2.3 mmol/L (0.4-2.0)
--- NOTE | 2024-09-05 06:17 | PC.NURSE ---
lab called with a critical lactic=2.3
[2024-09-05] MEDS: POTASSIUM CHLORIDE 10 MEQ ER TABLET 40 MEQ PO (06:46)
== END 2024-09-05 08:51 | disposition home or self-care (01) ==
PROVIDERS: Emergency Medicine; Emergency Provider Emergency Medicine
DX: K59.00 Constipation, unspecified (principal); F19.10 Other psychoactive substance abuse, uncomplicated
CPT/HCPCS: 36415; 80053; 80307; 80320; 81003; 83605; 85025; 93005; 96365; 96375; 99284; J1200; J3411